=== PATIENT | female | born 1980 | race Hispanic/Latino ===

== ENCOUNTER 2021-04-10 06:33 | Emergency (ER) | payer OTHER ==
--- OUTSIDE RECORDS SUMMARY | 2021-04-10 06:39 | XMS REPORT | Continuity of Care Document ---
:1980 Author Organization [facility] t Address [address] [facility] [[email or web address] [address] [place] [id number] Care Team Providers Name Role Phone Donna STEINER Primary Care Physician Unavailable RAIZA Attending Clinician Unavailable RODNEY ERAZO Attending Clinician Unavailable Forest Mars DO Attending Clinician Nena RIOS Attending Clinician Unavailable Nena RIOS Attending Clinician Unavailable 1, Sleep Lab Bed Attending Clinician Unavailable Nena Rios MD Attending Clinician KERWIN Attending Clinician Unavailable Only, Test Attending Clinician Unavailable Natasha LORD Attending Clinician Doctor Unassigned, Name Attending Clinician Unavailable Kerwin LORD Attending Clinician [facility] Attending Clinician Unavailable Raleigh Quezada DO Attending Clinician Raiza MATAMOROS Attending Clinician Erik Stevens MD Attending Clinician Donna Steiner Attending Clinician Wilmer FONTANEZ Attending Clinician Unavailable Lab, Fam Pob I Attending Clinician Unavailable Caron CHERY Attending Clinician Trinity Rosario Attending Clinician Gi OFNTANEZ Attending Clinician Unavailable Singer MARTE Attending Clinician Juan Daniel LORD Attending Clinician Payers Payer Name Policy Type Policy Number Effective Date Expiration Date S ource [facility] [id number] 2018 CHOICE MEDICAID 00:00:00 [facility] [id number] [facility] [id number] 2019 HEALTH CHOICE 00:00:00 Problems Condition Condition Condition Status Onset Resolution Last Treating Co mments Source Name Details Category Date Date Treatment Clinician Date Bipolar 1 Bipolar 1 Disease Active [facility] disorder disorder 3-17 Colleg e (HCCode) (HCCode) 00:00: of 00 Medicin e Depression Depression Disease Active [facility] 3-17 [facility] 00:00: of 00 Medicin e High blood High blood Disease Active [facility] pressure pressure 3-17 Colleg e 00:00: of 00 Medicin e Sleep-diso Sleep-diso Disease Active Last [facility] rdered rdered 06-19 [facility] breathing breathing 00:00: t & Plan: o f 00 Formattin Medicin g of this e note might be different from the original. Patient with history, obesity, and anatomy of the upper airway suggestiv e of sleep disordere d breathing .In addition, patient has associate d difficult y initiatin g sleep, snoring, nocturnal awakening , anxiety, and hypertens ion. Discussed with patient the pathophys iology of sleep apnea, diagnosis , and treatment options.W ill order a sleep study and further managment as indicated . Disorder Disorder Disease Active Last [facility] initiating initiating 00:00: t & Plan: of and and 00 Formattin Medicin maintainin maintainin g of this e g sleep g sleep note might be different from the original. Patient reported occasiona lly having difficult y falling to sleep at night. I advised her on the importanc e of testing for and treating YUMIKO if present. We also discussed good sleep hygiene practices such as reserving the bed/bedro om for sleep, keeping scheduled bedtime/w aketime, and avoiding screen exposure in bed and at night. I advised her on appropria te low dose melatonin (1-3mg) use 2 hours before bedtime. 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 obesity obesity 08-06 [place] (HCCode) (HCCode) 00:00: of 00 Medicin e Allergies, Adverse Reactions, Alerts Allergy Allergy Status Severity Reaction(s) Onset Inactive Treating Comm ents Source Name Type Date Date Clinician Lisinopr Propensi [facility] ity of adverse 00:00: [place] reaction 00 [facility] s Branch LISINOPR DRUG Active COUGH Univers IL INGREDI 11-26 ity of 00:00: [place] 00 [facility] Lisinopr Propensi Active Other [facility] ty to 11-26 reaction( College adverse 00:00: s): of reaction 00 [facility] in s to r e drug reaction( s): Cough Social History Social Habit Start Date Stop Date Quantity Comments Source Exposure to Unable to assess Univers ity of SARS-CoV-2 (event) [facility] Cigarettes smoked 2020-09-12 2020-09-12 [facility] of current (pack per 00:00:00 00:00:00 Medicin e day) - Reported Tobacco use and 2020-09-12 2020-09-[address] [facility] Co llege of exposure 00:00:00 00:00:00 Medicine Alcohol intake 2020-09-12 2020-09-12 Current drinker [facility] of 00:00:00 00:00:00 of alcohol Medicine (finding) Alcohol Comment 2019-04-04 2019-04-04 rare Universit y of 00:00:00 00:00:00 [facility] History of tobacco 2019-01-06 Cigarette Smoker University of use 00:00:00 [facility] Sex Ass[birth year] At [birth year] Universit y of 00:00:00 00:00:00 [facility] Smoking Status Start Date Stop Date Source Former smoker 2020-09-12 00:00:00 2020-09-12 00:00:00 [facility] Medications Ordered Filled Start Stop Current Ordering Indication Dosage Frequency Signature Comments Components Source Medication Medication Date Date Medication? Clinician (SIG) Name Name Cetirizine Yes 1{capsu Take 1 [facility] HCl 10 MG 4-28 le} capsule by [facility] CAPS 16:18: mouth of 16 daily. Medicin e quetiapine Yes 1{tbl} Take 1 [facility] (SEROQUEL) 4-28 Tablet by [facility] 100 MG 16:18: mouth of tablet 16 daily. Medicin e Meloxicam Yes 1{capsu Take 1 [facility] boone 10 MG CAPS 4-28 le} capsule by [facility] 16:18: mouth of 16 daily. Medicin e meloxicam Yes [facility] (MOBIC) 15 2-27 College MG tablet 00:00: of 00 Medicin e Cetirizine Yes 1{capsu Take 1 [facility] HCl 10 MG 2-02 le} capsule by [facility] CAPS 14:23: mouth of 39 daily. Medicin e quetiapine Yes 1{tbl} Take 1 [facility] (SEROQUEL) 2-02 Tablet by [facility] 100 MG 14:23: mouth of tablet 39 daily. Medicin e Meloxicam Yes 1{capsu Take 1 [facility] [facility] 10 MG CAPS 2-02 le} capsule by [facility] 14:23: mouth of 39 daily. Medicin e azithromyci 2019-05 2020- No [id number] 1000mg Take 2 Univers n 500 mg 2- 12-03 tablets by ity of tablet 00:00: 05:59 mouth [place] 00 :00 daily for Medical 1 day. Branch azithromyci 2019-05 2020- No [id number] 1000mg Take 2 Univers n 500 mg 2- 12-03 tablets by ity of tablet 00:00: 05:59 mouth [place] 00 :00 daily for Medical 1 day. Branch azithromyci 2019- 2020- No [id number] 1000mg Take 2 Univers n 500 mg 06-18 tablets by ity of tablet 00:00: 05:59 mouth [place] 00 :00 daily for Medical 1 day. Branch carvedilol 2019- Yes Take by Uni vers (COREG) 1-18 mouth 2 ity of 12.5 mg 14:16: (two) [place] tablet 26 times Medical daily with Branch meals. carvedilol 2019- Yes Take by Uni vers (COREG) 1-18 mouth 2 ity of 12.5 mg 14:16: (two) [place] tablet 26 times Medical daily with Branch meals. carvedilol 2019-05 Yes Take by Uni vers (COREG) 1-18 mouth 2 ity of 12.5 mg 14:16: (two) [place] tablet 26 times Medical daily with Branch meals. carvedilol 2019-05 Yes Take by Uni vers (COREG) 1-18 mouth 2 ity of 12.5 mg 14:16: (two) [place] tablet 26 times Medical daily with Branch meals. carvedilol 2019-05 Yes Take by Uni vers (COREG) 1-18 mouth 2 ity of 12.5 mg 14:16: (two) [place] tablet 26 times Medical daily with Branch meals. carvedilol 2019- Yes Take by Uni vers (COREG) 1-18 mouth 2 ity of 12.5 mg 14:16: (two) [place] tablet 26 times Medical daily with Branch meals. carvedilol 2019- Yes Take by Uni vers (COREG) 1-18 mouth 2 ity of 12.5 mg 14:16: (two) [place] tablet 26 times Medical daily with Branch meals. carvedilol 2019- Yes Take by Uni vers (COREG) 1-18 mouth 2 ity of 12.5 mg 14:16: (two) [place] tablet 26 times Medical daily with Branch meals. carvedilol 2019- Yes Take by Uni vers (COREG) 1-18 mouth 2 ity of 12.5 mg 14:16: (two) [place] tablet 26 times Medical daily with Branch meals. carvedilol 2019- Yes Take by Uni vers (COREG) 1-18 mouth 2 ity of 12.5 mg 14:16: (two) [place] tablet 26 times Medical daily with Branch meals. carvedilol 2019-05 Yes Take by Uni vers (COREG) 1-18 mouth 2 ity of 12.5 mg 14:16: (two) [place] tablet 26 times Medical daily with Branch meals. carvedilol 2019-05 Yes Take by Uni vers (COREG) 1-18 mouth 2 ity of 12.5 mg 14:16: (two) [place] tablet 26 times Medical daily with Branch meals. carvedilol 2019-05 Yes Take by Uni vers (COREG) 1-18 mouth 2 ity of 12.5 mg 14:16: (two) [place] tablet 26 times Medical daily with Branch meals. carvedilol 2019-05 Yes Take by Uni vers (COREG) 1-18 mouth 2 ity of 12.5 mg 14:16: (two) [place] tablet 26 times Medical daily with Branch meals. losartan 2019-05 Yes 1{tbl} Take 1 [facility] (COZAAR) 50 0-03 Tablet by [facility] MG tablet 00:00: mouth of 00 daily. Medicin e losartan 2019-05 Yes 1{tbl} Take 1 [facility] (COZAAR) 50 0-03 Tablet by Col lege MG tablet 00:00: mouth of 00 daily. Medicin e losartan 50 2019-05 Yes Univer s mg tablet 0-03 ity of 00:00: [place] [facility] losartan 50 2019-05 Yes Univer s mg tablet 0-03 ity of 00:00: Medical Branch losartan 50 2019-05 Yes Univer s mg tablet 0-03 ity of 00:00: Medical Branch losartan 50 2019-05 Yes Univer s mg tablet 0-03 ity of 00:00: Medical Branch losartan 50 2019-05 Yes Univer s mg tablet 0-03 ity of 00:00: Medical Branch losartan 50 2019-05 Yes Univer s mg tablet 0-03 ity of 00:00: Medical Branch losartan 50 2019-05 Yes Univer s mg tablet 0-03 ity of 00:00: Medical Branch losartan 50 2019-05 Yes Univer s mg tablet 0-03 ity of 00:00: Medical Branch losartan 50 2019-05 Yes Univer s mg tablet 0-03 ity of 00:00: Medical Branch losartan 50 2019-05 Yes Univer s mg tablet 0-03 ity of 00:00: [place] [facility] losartan 50 2019- Yes Univer s mg tablet 0-03 ity of 00:00: [place] [facility] losartan 50 2019- Yes Univer s mg tablet 0-03 ity of 00:00: Medical Branch losartan 50 2019- Yes Univer s mg tablet 0-03 ity of 00:00: [place] [facility] losartan 50 2019- Yes Univer s mg tablet 0-03 ity of 00:00: [place] [facility] cyclobenzap 2019-05 Yes 1{tbl} Take 1 [facility] rine 0-02 Tablet by [place] (FLEXERI) 00:00: mouth of 10 MG 00 daily. Medicin tablet e lamotrigine 2019-05 Yes 1{tbl} Take 1 [facility] (LAMICTAL) 0-02 Tablet by [facility] 25 MG 00:00: mouth of tablet 00 daily. Medicin e cyclobenzap 2019-05 Yes 1{tbl} Take 1 [facility] rine 0-02 Tablet by [place] (FLEXERI) 00:00: mouth of 10 MG 00 daily. Medicin tablet e lamotrigine 2019-05 Yes 1{tbl} Take 1 [facility] (LAMICTAL) 0-02 Tablet by [facility] 25 MG 00:00: mouth of tablet 00 daily. Medicin e cyclobenzap 2019-05 Yes Univer s rine 10 mg 0-02 ity of tablet 00:00: [place] [facility] lamoTRIgine 2019-05 Yes TK 1 T PO U nivers 25 mg 0-02 D ity of tablet 00:00: [place] [facility] cyclobenzap 2019-05 Yes Univer s rine 10 mg 0-02 ity of tablet 00:00: [place] [facility] lamoTRIgine 2019-05 Yes TK 1 T PO U nivers 25 mg 0-02 D ity of tablet 00:00: [place] [facility] cyclobenzap 2019-05 Yes Univer s rine 10 mg 0-02 ity of tablet 00:00: [place] [facility] lamoTRIgine 2019-05 Yes TK 1 T PO U nivers 25 mg 0-02 D ity of tablet 00:00: [place] [facility] cyclobenzap 2019-05 Yes Univer s rine 10 mg 0-02 ity of tablet 00:00: [place] [facility] lamoTRIgine 2020- Yes TK 1 T PO U nivers 25 mg 0-02 D ity of tablet 00:00: [place] [facility] cyclobenzap 2019- Yes Univer s rine 10 mg 0-02 ity of tablet 00:00: [place] [facility] lamoTRIgine 2020 Yes TK 1 T PO U nivers 25 mg 0-02 D ity of tablet 00:00: [place] [facility] cyclobenzap 2019-05 Yes Univer s rine 10 mg 0-02 ity of tablet 00:00: [address] lamoTRIgine 2019-05 Yes TK 1 T PO U nivers 25 mg 0-02 D ity of tablet 00:00: [address] cyclobenzap 2019-05 Yes Univer s rine 10 mg 0-02 ity of tablet 00:00: [address] lamoTRIgine 2019-05 Yes TK 1 T PO U nivers 25 mg 0-02 D ity of tablet 00:00: [address] cyclobenzap 2019-05 Yes Univer s rine 10 mg 0-02 ity of tablet 00:00: [address] lamoTRIgine 2019-05 Yes TK 1 T PO U nivers 25 mg 0-02 D ity of tablet 00:00: [address] cyclobenzap 2019-05 Yes Univer s rine 10 mg 0-02 ity of tablet 00:00: [address] lamoTRIgine 2019-05 Yes TK 1 T PO U nivers 25 mg 0-02 D ity of tablet 00:00: [address] cyclobenzap 2019-05 Yes Univer s rine 10 mg 0-02 ity of tablet 00:00: [address] lamoTRIgine 2020 Yes TK 1 T PO U nivers 25 mg 0-02 D ity of tablet 00:00: [address] cyclobenzap 2019-05 Yes Univer s rine 10 mg 0-02 ity of tablet 00:00: [address] lamoTRIgine 2020 Yes TK 1 T PO U nivers 25 mg 0-02 D ity of tablet 00:00: [address] cyclobenzap 2019-05 Yes Univer s rine 10 mg 0-02 ity of tablet 00:00: [place] 00 Medical Branch lamoTRIgine 2019- Yes TK 1 T PO U nivers 25 mg 0-02 D ity of tablet 00:00: Medical Branch cyclobenzap 2019- Yes Univer s rine 10 mg 0-02 ity of tablet 00:00: Medical Branch lamoTRIgine 2019- Yes TK 1 T PO U nivers 25 mg 0-02 D ity of tablet 00:00: Medical Branch cyclobenzap 2019- Yes Univer s rine 10 mg 0-02 ity of tablet 00:00: Medical Branch lamoTRIgine 2019- Yes TK 1 T PO U nivers 25 mg 0-02 D ity of tablet 00:00: Medical Branch ibuprofen 2020-0 Yes 600mg Take 600 [facility] (MOTRIN) 7-08 mg by College 600 MG 00:00: mouth as of tablet 00 needed. Medicin e ibuprofen 2019-0 Yes 600mg Take 600 [facility] (MOTRIN) 7-08 mg by College 600 MG 00:00: mouth as of tablet 00 needed. Medicin e ibuprofen 2019-0 Yes [id number] 600mg Take 1 [facility] 600 mg 7-08 tablet by ity of tablet 00:00: mouth [place] 00 every 6 Medical (six) Branch hours as needed for Pain (scale 4-6). benzonatate 2020-0 Yes [id number] 200mg Take 1 Univers 200 mg 7-08 capsule by ity of capsule 00:00: mouth 3 00 (three) Medical times Branch daily as needed for Cough for up to 20 doses. ondansetron 2020-0 Yes [id number] 4mg Take 1 [facility] (ZOFRAN 7-08 tablet by ity of ODT) 4 mg 00:00: mouth [place] disintegrat 00 every 8 Medic al ing tablet (eight) Branch hours as needed for Nausea and Vomiting (N/V). ibuprofen 2020-0 Yes [id number] 600mg Take 1 [facility] 600 mg 7-08 tablet by ity of tablet 00:00: mouth [place] 00 every 6 Medical (six) Branch hours as needed for Pain (scale 4-6). benzonatate 2020-0 Yes [id number] 200mg Take 1 [facility] 200 mg 7-08 capsule by ity of capsule 00:00: mouth 3 00 (three) Medical times Branch daily as needed for Cough for up to 20 doses. ondansetron 2020-0 Yes [id number] 4mg Take 1 Univers (ZOFRAN 7-08 tablet by ity of ODT) 4 mg 00:00: mouth [place] disintegrat 00 every 8 Medic al ing tablet (eight) Branch hours as needed for Nausea and Vomiting (N/V). ibuprofen 2020-0 Yes [id number] 600mg Take 1 [facility] 600 mg 7-08 tablet by ity of tablet 00:00: mouth [place] 00 every 6 Medical (six) Branch hours as needed for Pain (scale 4-6). benzonatate 2020-0 Yes [id number] 200mg Take 1 Univers 200 mg 7-08 capsule by ity of capsule 00:00: mouth 3 [place] 00 (three) Medical times Branch daily as needed for Cough for up to 20 doses. ondansetron 2020-0 Yes [id number] 4mg Take 1 Univers (ZOFRAN 7-08 tablet by ity of ODT) 4 mg 00:00: mouth [place] disintegrat 00 every 8 Medic al ing tablet (eight) Branch hours as needed for Nausea and Vomiting (N/V). ibuprofen 2020-0 Yes [id number] 600mg Take 1 [facility] 600 mg 7-08 tablet by ity of tablet 00:00: mouth [place] 00 every 6 Medical (six) Branch hours as needed for Pain (scale 4-6). benzonatate 2020-0 Yes [id number] 200mg Take 1 [facility] 200 mg 7-08 capsule by ity of capsule 00:00: mouth 3 [place] 00 (three) Medical times Branch daily as needed for Cough for up to 20 doses. ondansetron 2020-0 Yes [id number] 4mg Take 1 Univers (ZOFRAN 7-08 tablet by ity of ODT) 4 mg 00:00: mouth [place] disintegrat 00 every 8 Medic al ing tablet (eight) Branch hours as needed for Nausea and Vomiting (N/V). ibuprofen 2020-0 Yes [id number] 600mg Take 1 Univers 600 mg 7-08 tablet by ity of tablet 00:00: mouth [place] 00 every 6 Medical (six) Branch hours as needed for Pain (scale 4-6). benzonatate 2020-0 Yes [id number] 200mg Take 1 Univers 200 mg 7-08 capsule by ity of capsule 00:00: mouth 3 [place] 00 (three) Medical times Branch daily as needed for Cough for up to 20 doses. ondansetron 2020-0 Yes [id number] 4mg Take 1 Univers (ZOFRAN 7-08 tablet by ity of ODT) 4 mg 00:00: mouth [place] disintegrat 00 every 8 Medic al ing tablet (eight) Branch hours as needed for Nausea and Vomiting (N/V). ibuprofen 2020-0 Yes [id number] 600mg Take 1 Univers 600 mg 7-08 tablet by ity of tablet 00:00: mouth [place] 00 every 6 Medical (six) Branch hours as needed for Pain (scale 4-6). benzonatate 2020-0 Yes [id number] 200mg Take 1 Univers 200 mg 7-08 capsule by ity of capsule 00:00: mouth 3 [place] 00 (three) Medical times Branch daily as needed for Cough for up to 20 doses. ondansetron 2020-0 Yes [id number] 4mg Take 1 Univers (ZOFRAN 7-08 tablet by ity of ODT) 4 mg 00:00: mouth [place] disintegrat 00 every 8 Medic al ing tablet (eight) Branch hours as needed for Nausea and Vomiting (N/V). ibuprofen 2020-0 Yes [id number] 600mg Take 1 Univers 600 mg 7-08 tablet by ity of tablet 00:00: mouth [place] 00 every 6 Medical (six) Branch hours as needed for Pain (scale 4-6). ibuprofen 2020-0 Yes [id number] 600mg Take 1 [facility] 600 mg 7-08 tablet by ity of tablet 00:00: mouth [place] 00 every 6 Medical (six) Branch hours as needed for Pain (scale 4-6). ibuprofen 2020-0 Yes [id number] 600mg Take 1 Univers 600 mg 7-08 tablet by ity of tablet 00:00: mouth [place] 00 every 6 Medical (six) Branch hours as needed for Pain (scale 4-6). ibuprofen 2020-0 Yes [id number] 600mg Take 1 [facility] 600 mg 7-08 tablet by ity of tablet 00:00: mouth [place] 00 every 6 Medical (six) Branch hours as needed for Pain (scale 4-6). ibuprofen 2020-0 Yes [id number] 600mg Take 1 Univers 600 mg 7-08 tablet by ity of tablet 00:00: mouth [place] 00 every 6 Medical (six) Branch hours as needed for Pain (scale 4-6). ibuprofen 2020-0 Yes [id number] 600mg Take 1 Univers 600 mg 7-08 tablet by ity of tablet 00:00: mouth [place] 00 every 6 Medical (six) Branch hours as needed for Pain (scale 4-6). ibuprofen 2020-0 Yes [id number] 600mg Take 1 Univers 600 mg 7-08 tablet by ity of tablet 00:00: mouth [place] 00 every 6 Medical (six) Branch hours as needed for Pain (scale 4-6). ibuprofen 2020-0 Yes [id number] 600mg Take 1 Univers 600 mg 7-08 tablet by ity of tablet 00:00: mouth [place] 00 every 6 Medical (six) Branch hours as needed for Pain (scale 4-6). ibuprofen 2020-0 Yes [id number] 600mg Take 1 Univers 600 mg 7-08 tablet by ity of tablet 00:00: mouth [place] 00 every 6 Medical (six) Branch hours as needed for Pain (scale 4-6). ibuprofen 2020-0 Yes [id number] 600mg Take 1 Univers 600 mg 7-08 tablet by ity of tablet 00:00: mouth [place] 00 every 6 Medical (six) Branch hours as needed for Pain (scale 4-6). ibuprofen 2020-0 Yes [id number] 600mg Take 1 Univers 600 mg 7-08 tablet by ity of tablet 00:00: mouth [place] 00 every 6 Medical (six) Branch hours as needed for Pain (scale 4-6). ibuprofen 2020-0 Yes [id number] 600mg Take 1 [facility] 600 mg 7-08 tablet by ity of tablet 00:00: mouth [place] 00 every 6 Medical (six) Branch hours as needed for Pain (scale 4-6). ibuprofen 2020-0 Yes [id number] 600mg Take 1 [facility] 600 mg 7-08 tablet by ity of tablet 00:00: mouth [place] 00 every 6 Medical (six) Branch hours as needed for Pain (scale 4-6). ibuprofen 2020-0 Yes [id number] 600mg Take 1 Univers 600 mg 7-08 tablet by ity of tablet 00:00: mouth [place] 00 every 6 Medical (six) Branch hours as needed for Pain (scale 4-6). benzonatate 2020-0 2020- No [id number] 200mg Take 1 Univers 200 mg 7-08 11-18 capsule by ity of capsule 00:00: 00:00 mouth 3 [place] 00 :00 (three) Medical times Branch daily as needed for Cough for up to 20 doses. ondansetron 2020-0 2020- No [id number] 4mg Take 1 Univers (ZOFRAN 11-22 tablet by ity of ODT) 4 mg 00:00: 00:00 mouth [place] disintegrat 00 :00 every 8 Medic al ing tablet (eight) Branch hours as needed for Nausea and Vomiting (N/V). benzonatate 2020-0 2020- No [id number] 200mg Take 1 Univers 200 mg 11-22 capsule by ity of capsule 00:00: 00:00 mouth 3 [place] 00 :00 (three) Medical times Branch daily as needed for Cough for up to 20 doses. ondansetron 2020-0 2020- No [id number] 4mg Take 1 Univers (ZOFRAN 11-22 tablet by ity of ODT) 4 mg 00:00: 00:00 mouth [place] disintegrat 00 :00 every 8 Medic al ing tablet (eight) Branch hours as needed for Nausea and Vomiting (N/V). cloNIDine 2020-0 2020- No .1mg 0.1 mg, Univ ers (CATAPRES) 2- 02-04 Oral, ity of tablet 0.1 07:00: 06:01 ONCE, 1 [facility] as mg 00 :00 dose, [facility] 06/21/19 at Branch 0100, STAT carvedilol 2020-0 Yes Take by Uni vers (COREG) 2-04 mouth 2 ity of 12.5 mg 04:08: (two) [place] tablet 17 times Medical daily with Branch meals. carvedilol 2020-0 Yes Take by Uni vers (COREG) 2-04 mouth 2 ity of 12.5 mg 04:08: (two) [place] tablet 17 times Medical daily with Branch meals. carvedilol 2020-0 Yes Take by Uni vers (COREG) 2-04 mouth 2 ity of 12.5 mg 04:08: (two) [place] tablet 17 times Medical daily with Branch meals. carvedilol 2020-0 Yes Take by Uni vers (COREG) 2-04 mouth 2 ity of 12.5 mg 04:08: (two) [place] tablet 17 times Medical daily with Branch meals. carvedilol 2020-0 Yes Take by Uni vers (COREG) 2-04 mouth 2 ity of 12.5 mg 04:08: (two) [place] tablet 17 times Medical daily with Branch meals. carvedilol 2019-0 Yes Take by Uni vers (COREG) 2-04 mouth 2 ity of 12.5 mg 04:08: (two) [place] tablet 17 times Medical daily with Branch meals. carvedilol 2020-0 Yes Take by Uni vers (COREG) 2-04 mouth 2 ity of 12.5 mg 04:08: (two) [place] tablet 17 times Medical daily with Branch meals. carvedilol 2019-0 Yes Take by Uni vers (COREG) 2-04 mouth 2 ity of 12.5 mg 04:08: (two) [place] tablet 17 times Medical daily with Branch meals. cephALEXin 2020- No [id number] 500mg Take 1 Univers (KEFLEX) 2-04 02-12 capsule by ity of 500 mg 00:00: 05:59 mouth 3 [place] capsule 00 :00 (three) Medical times Branch daily for 7 days. carvedilol 2018-05 Yes Take by Uni vers (COREG) 1-18 mouth 2 ity of 12.5 mg 14:58: (two) [place] tablet 56 times Medical daily with Branch meals. ibuprofen 2018-05 Yes [id number] 600mg Take 1 U nivers 600 mg 0-19 tablet by ity of tablet 00:00: mouth [place] 00 every 6 Medical (six) Branch hours as needed for Pain (scale 4-6). ibuprofen 2018-05 2020- No [id number] 600mg Take 1 Univers 600 mg 0-19 02-03 tablet by ity of tablet 00:00: 00:00 mouth [place] 00 :00 every 6 Medical (six) Branch hours as needed for Pain (scale 4-6). amoxicillin 2018- Yes [id number] 500mg Take 1 [facility] 500 mg 8-15 capsule by ity of capsule 00:00: mouth 3 [place] 00 (three) Medical times Branch daily. acetaminoph 2018- Yes [id number] 10mL Take 10 mL Univers en-codeine 8-15 by mouth ity o f 120-12 mg/5 00:00: every 6 [facility] as mL 00 (six) Medical suspension hours as Branc h needed for Pain. methocarbam 2018- Yes [id number] 1500mg Take 2 Univers ol 750 mg 4-09 tablets by ity of tablet 00:00: mouth 4 [place] 00 (four) Medical times Branch daily. ibuprofen 2019- Yes [id number] 800mg Take 1 Univers 800 mg 4-09 tablet by ity of tablet 00:00: mouth 3 [place] 00 (three) Medical times Branch daily with meals. cephALEXin 2019- Yes [id number] 500mg Take 1 Univers (KEFLEX) 4-09 capsule by ity o f 500 mg 00:00: mouth 3 [place] capsule 00 (three) Medical times Branch daily. methocarbam 2019- Yes [id number] 1500mg Take 2 Univers ol 750 mg 4-09 tablets by ity of tablet 00:00: mouth 4 [place] 00 (four) Medical times Branch daily. ibuprofen 2018- Yes [id number] 800mg Take 1 Univers 800 mg 4-09 tablet by ity of tablet 00:00: mouth 3 [place] 00 (three) Medical times Branch daily with meals. cephALEXin 2018- Yes [id number] 500mg Take 1 Univers (KEFLEX) 4-09 capsule by ity o f 500 mg 00:00: mouth 3 [place] capsule 00 (three) Medical times Branch daily. carvedilol Yes 1{tbl} Take 1 [place] boone (COREG) 1-23 Tablet by [place] 6.25 MG 00:00: mouth of tablet 00 daily. Medicin e carvedilol Yes 1{tbl} Take 1 [place] boone (COREG) 1-23 Tablet by [place] 6.25 MG 00:00: mouth of tablet 00 daily. Medicin e carvedilol Yes Take by Uni vers (COREG) 7-12 mouth 2 ity of 12.5 mg 17:22: (two) [place] tablet 49 times Medical daily with Branch meals. carvedilol Yes Take by Uni vers (COREG) 7-12 mouth 2 ity of 12.5 mg 17:22: (two) [place] tablet 49 times Medical daily with Branch meals. Immunizations Ordered Filled Immunization Date Status Comments [facility] Immunization Name Name Td 2011-05-18 Completed University of 00:00:00 [facility] Td 2011-05-18 Completed University of 00:00:00 [facility] Td 2011-05-18 Completed University of 00:00:00 [facility] Td 2011-05-18 Completed University of 00:00:00 [facility] Td 2011-05-18 Completed University of 00:00:00 [place] [facility] Td 2011-05-18 Completed University of 00:00:00 [place] [facility] Td 2011-05-18 Completed University of 00:00:00 [place] [facility] Td 2011-05-18 Completed University of 00:00:00 [place] [facility] Td 2011-05-18 Completed University of 00:00:00 [place] [facility] Td 2011-05-18 Completed University of 00:00:00 [place] [facility] Td 2011-05-18 Completed University of 00:00:00 [place] [facility] Td 2011-05-18 Completed University of 00:00:00 [place] [facility] Td 2011-05-18 Completed University of 00:00:00 [place] [facility] Td 2011-05-18 Completed University of 00:00:00 [place] [facility] Td 2011-05-18 Completed University of 00:00:00 [place] [facility] Td 2011-05-18 Completed University of 00:00:00 [place] [facility] Td 2011-05-18 Completed University of 00:00:00 [place] [facility] Td 2011-05-18 Completed University of 00:00:00 [place] [facility] Td 2011-05-18 Completed University of 00:00:00 [place] [facility] Td 2011-05-18 Completed University of 00:00:00 [place] [facility] Td 2011-05-18 Completed University of 00:00:00 [place] [facility] Td 2011-05-18 Completed University of 00:00:00 [place] [facility] Td 2011-05-18 Completed University of 00:00:00 [place] [facility] Td 2011-05-18 Completed University of 00:00:00 [place] [facility] Td 2011-05-18 Completed University of 00:00:00 [place] [facility] Td 2011-05-[address] [facility] 00:00:00 Medicine Vital Signs Vital Name Observation Time Observation Value Comments Source Systolic blood 2020-12-12 13:12:00 154 mm[Hg] Univer sity of pressure [facility] Branch Diastolic blood 2020-12-12 13:12:00 103 mm[Hg] Unive rsity of pressure [facility] Heart rate 2020-12-12 13:12:00 99 /min Universi [facility] Body temperature 2020-12-12 13:12:00 37.83 Elizabeth Univ ersity of [facility] Respiratory rate 2020-12-12 13:12:00 18 /min Univ ersity of [place] [facility] Body weight 2020-12-12 13:12:00 159.893 kg Universi ty of [place] [facility] BMI 2020-12-12 13:12:00 60.51 kg/m2 Universi ty of [place] [facility] Oxygen saturation in 2020-12-12 13:12:00 99 /min University of Arterial blood by [facility] [place] [facility] Pulse oximetry Branch Systolic blood 2020-12-12 13:12:00 154 mm[Hg] Univer sity of pressure [place] [facility] Diastolic blood 2020-12-12 13:12:00 103 mm[Hg] Unive rsity of pressure [place] [facility] Heart rate 2020-12-12 13:12:00 99 /min Universi ty of [place] [facility] Body temperature 2020-12-12 13:12:00 37.83 Elizabeth Univ ersity of [place] [facility] Respiratory rate 2020-12-12 13:12:00 18 /min Univ ersity of [place] [facility] Body weight 2020-12-12 13:12:00 159.893 kg Universi ty of [place] [facility] BMI 2020-12-12 13:12:00 60.51 kg/m2 Universi ty of [place] [facility] Oxygen saturation in 2020-12-12 13:12:00 99 /min University of Arterial blood by [facility] [place] [facility] Pulse oximetry Branch Systolic blood 2020-09-12 16:17:00 140 mm[Hg] [facility] pressure Medicine Diastolic blood 2020-09-12 16:17:00 76 mm[Hg] [facility] Medicine Heart rate 2020-09-12 16:17:00 81 /min [facility] Body temperature 2020-09-12 16:17:00 36.83 Elizabeth [facility] Body height 2020-09-12 16:17:00 162.6 cm [facility] Body weight 2020-09-12 16:17:00 166.924 kg [facility] BMI 2020-09-12 16:17:00 63.17 kg/m2 [facility] Systolic blood 2020-06-20 16:30:00 187 mm[Hg] [facility] pressure Medicine Diastolic blood 2020-06-20 16:30:00 115 mm[Hg] [facility] Heart rate 2020-06-20 16:30:00 85 /min [facility] 2020-06-20 16:30:00 36.83 Elizabeth [facility] Body height 2020-06-20 16:30:00 162.6 cm [facility] Body weight 2020-06-20 16:30:00 170.099 kg [facility] BMI 2020-06-20 16:30:00 64.37 kg/m2 [facility] Systolic blood 2020-04-04 14:13:00 171 mm[Hg] Univer sity of pressure [facility] Branch Diastolic blood 2020-04-04 14:13:00 100 mm[Hg] Unive rsity of pressure [facility] Branch Heart rate 2020-04-04 14:13:00 73 /min Universi ty of [facility] Branch Body temperature 2020-04-04 14:10:00 36.72 Elizabeth Univ ersity of [facility] Branch Respiratory rate 2020-04-04 14:10:00 18 /min Univ ersity of [facility] Branch Body height 2020-04-04 14:10:00 162.6 cm Universi ty of [place] [facility] Body weight 2020-04-04 14:10:00 169.01 kg Universi ty of [place] [facility] BMI 2020-04-04 14:10:00 63.96 kg/m2 Universi ty of [place] [facility] Systolic blood 2019-11-23 16:16:00 169 mm[Hg] Univer sity of pressure [place] [facility] Diastolic blood 2019-11-23 16:16:00 100 mm[Hg] Unive rsity of pressure [place] [facility] Heart rate 2019-11-23 16:16:00 81 /min Universi ty of [place] [facility] Body temperature 2019-11-23 16:16:00 37.17 Elizabeth Univ ersity of [place] [facility] Respiratory rate 2019-11-23 16:16:00 20 /min Univ ersity of [place] [facility] Body weight 2019-11-23 16:16:00 170.099 kg Universi ty of [place] [facility] BMI 2019-11-23 16:16:00 66.43 kg/m2 Universi ty of [facility] Branch Oxygen saturation in 2019-11-23 16:16:00 98 /min University of Arterial blood by [facility] [place] [facility] Pulse oximetry Branch Systolic blood 2019-06-21 07:00:00 153 mm[Hg] Univer sity of pressure [facility] Diastolic blood 2019-06-21 07:00:00 84 mm[Hg] Unive rsity of pressure [facility] Heart rate 2019-06-21 07:00:00 76 /min Universi ty of [facility] Respiratory rate 2019-06-21 07:00:00 20 /min [facility] Oxygen saturation in 2019-06-21 07:00:00 97 /min University of Arterial blood by [facility] [place] [facility] Pulse oximetry Branch Body temperature 2019-06-21 04:07:00 36.67 Elizabeth Univ ersity of [facility] Body weight 2019-06-21 04:07:00 167.831 kg Universi ty of [place] [facility] [place] BMI 2019-06-21 04:07:00 65.54 kg/m2 Universi ty of [facility] Systolic blood 2018-12-30 14:24:00 154 mm[Hg] Univer sity of [facility] Diastolic blood 2018-12-30 14:24:00 104 mm[Hg] Unive rsity of [facility] Heart rate 2018-12-30 14:24:00 94 /min Universi ty of [facility] Body temperature 2018-12-30 14:24:00 37 Elizabeth Univ [facility] Respiratory rate 2018-12-30 14:24:00 20 /min [facility] Body weight 2018-12-30 14:24:00 159.666 kg Universi ty of [place] [facility] [place] BMI 2018-12-30 14:24:00 62.35 kg/m2 Universi ty [facility] Oxygen saturation in 2018-12-30 14:24:00 99 /min University of Arterial blood by [facility] [place] [facility] Pulse oximetry Branch Procedures Procedure Date / Time Performing Clinician Source Performed RAPID STREP SCREEN FOR 2020-12-12 13:15:00 [facility] Branch ASSIGNMENT OF BENEFITS 2020-11-14 14:37:44 Doctor Unassigned, No [facility] Name [facility] BI SCREENING MAMMOGRAM 2020-06-06 16:23:00 Mariela Eastman [facility] BILATERAL Medical Branch ASSIGNMENT OF BENEFITS 2020-06-06 15:57:38 Doctor Unassigned, No [facility] [place] SCANNED LAB RESULTS 2020-04-04 06:01:00 Doctor Unassigned, No Un iversity of [facility] Medical Branch RAPID STREP SCREEN FOR 2019-11-23 17:08:00 Fidelia Driver [facility] GROUP A Medical Branch CONSENT/REFUSAL FOR 2019-11-23 16:08:07 Doctor Unassigned, No Un iversity of [place] DIAGNOSIS AND TREATMENT [facility] Medical Branch TROPONIN I 2019-06-21 05:26:00 Nettie [facility] o [facility] COMP. METABOLIC PANEL 2019-06-21 05:26:00 Woodard, [facility] ([id number]) [facility] CBC WITH DIFFERENTIAL 2019-06-21 05:26:00 Woodard, [facility] URINALYSIS 2019-06-21 05:26:00 Woodard, [facility] o f [facility] N-TERMINAL PRO-BNP 2019-06-21 05:26:00 Singer [facility] NOTICE OF PRIVACY 2019-06-21 03:30:52 Doctor Unassigned, No Univ [facility] Branch CONSENT/REFUSAL FOR 2019-06-21 03:30:20 Doctor Unassigned, No Un iversity of [place] DIAGNOSIS AND TREATMENT [facility] Medical Branch NOTICE OF PRIVACY 2018-12-30 14:16:24 [facility], [facility] CONSENT/REFUSAL FOR 2018-12-30 14:16:11 Doctor Unassigned, No Un iversity of [place] DIAGNOSIS AND TREATMENT [facility] Plan of Care Planned Activity Planned Date Details Comments Source Future Scheduled COVID-19 Vaccine [facility] of Test Evaluation [code = Medicine COVID-19 Vaccine Evaluation] Future Scheduled BMI FOLLOW UP PLAN [code = [facility] of Test BMI FOLLOW UP PLAN] Medicine Future Scheduled HEPATITIS C SCREENING [facility] [code = HEPATITIS C Medicine SCREENING] Future Scheduled HIV SCREENING [code = HIV [facility] of [facility] SCREENING] Medicine Future Scheduled CERVICAL CANCER SCREENING [facility] 3 YEAR FOLLOW UP [code = Med icine CERVICAL CANCER SCREENING 3 YEAR FOLLOW UP] Future Scheduled FLU VACCINE > 6 MONTHS [employer] Test [code = FLU VACCINE > 6 [facility] cine MONTHS] Future Scheduled TETANUS SHOT (ADULT) [code [facility] Test = TETANUS SHOT (ADULT)] [facility] Future Scheduled MAMMOGRAM ANNUAL [code = [facility] MAMMOGRAM ANNUAL] Medicine Future Scheduled COVID-19 Vaccine (1) [code [facility] Test = COVID-19 Vaccine (1)] [facility] Future Scheduled BMI FOLLOW UP PLAN [code = [facility] BMI FOLLOW UP PLAN] Medicine Future Scheduled Hepatitis C screening Ba [facility] (procedure) [code = Medicine 214083750] Future Scheduled Human immunodeficiency B [facility] virus screening Medicine (procedure) [code = 822389847] Future Scheduled Screening for malignant [facility] neoplasm of cervix Medicine (procedure) [code = 299114066] Future Scheduled FLU VACCINE > 6 MONTHS B [facility] [code = FLU VACCINE > 6 Medi cine MONTHS] Future Scheduled TETANUS SHOT (ADULT) [code [facility] = TETANUS SHOT (ADULT)] [facility] Future Scheduled Screening for malignant [facility] neoplasm of breast Medicine (procedure) [code = 152723233] Encounters Start End Encounter Admission Attending Care Care Encounter Source Date/Time Date/Time Type Type Clinicians Facility Department ID 2021-03-18 Emergency [facility] [id number] Univers 11:19:41 [facility] 2021-03-15 Emergency [facility] [id number] Univers 05:30:29 [facility] 2021-05-22 2021-05-22 Outpatient Wanda EASTMAN [facility] [id number] Univers 15:00:00 15:00:00 MARIELA [id number] [facility] 2021-04-04 2021-04-04 Outpatient Wanda EASTMAN [facility] [id number] Univers 08:00:00 08:00:00 MARIELA [id number] [facility] 2021-04-04 2021-04-04 Outpatient Wanda EASTMAN [facility] [id number] Univers 08:00:00 08:00:00 MARIELA [facility] 2021-02-01 2021-02-01 Outpatient DEL [facility]ZO [facility] [id number] [place] [address] 15:55:51 16:11:15 INDIA Patel 2020-12-12 2020-12-12 Emergency [facility] 1.2.840.114 [id number] [facility] 08:14:00 09:21:00 Seble Garg Mega [id number] ity of [place] 4.2.7.2.686 [facility] [id number] [facility] [address] [place] 2020-12-12 2020-12-12 [facility] 1.2.840.114 [id number] 08:14:00 09:21:00 Seble Garg Mega [id number] [place] [id number] [place] [id number] [facility] 2020-11-16 2020-11-16 Outpatient R [facility] [id number] [facility] 19:30:00 19:30:00 [id number] [facility] 2020-11-16 2020-11-16 Outpatient R ISRRAEL RIOS [facility] [id number] [facility] 19:30:00 19:30:00 ISRRAEL RIOS [facility] 2020-11-16 2020-11-16 Merchandise Pickup/Receiving Associate 1, [facility] Sleep Lab Bed [facility] 1. 2.840.114 [id number] [facility] 14:47:18 17:17:18 Visit Isrrael Rios [id number]. 10 [facility] 4.2.7.2.686 [facility] [id number] [facility] 193 Branch 2020-11-16 2020-11-16 Merchandise Pickup/Receiving Associate 1, [facility] 1.2.840.114 [id number] 14:47:18 17:17:18 Visit Sleep Lab [place] [id number] Bed [place] [id number] [place] [id number] 193 2020-11-14 2020-11-14 Outpatient [facility] [id number] [facility] 13:22:15 15:50:38 SRINIVAS ramirez of Medicin e 2020-11-14 2020-11-14 Outpatient R [facility] [id number] [facility] 10:00:00 10:00:00 [id number] ity of [facility] 2020-11-14 2020-11-14 Outpatient R [facility] [id number] Univers 10:00:00 10:00:00 ity of [facility] 2020-11-14 2020-11-14 Laboratory Only, [facility] Test [place] 1.2.840. 114 [id number] Univers 09:38:29 09:53:29 Only Natasha Neal Mega [id number] ity of [place] 4.2.7.2.686 [place] [id number] [facility] 353 Branch 2020-11-14 2020-11-14 Laboratory Only, [facility] 1.2.840.114 [id number] 09:38:29 09:53:29 Only Test [place] [id number] [place] 4.2.7.2.686 [place] [id number] 353 2020-11-14 2020-11-14 Orders Doctor PARRY 1.2.840.114 [id number] Univers 00:00:00 00:00:00 Only Unassigned, RENATE 350.1.13.10 ity of [place] [facility] 4.2.7.2.686 Alexy as [id number] [facility] 009 Branch 2020-11-14 2020-11-14 Orders Doctor PARRY 1.2.840.114 [id number] 00:00:00 00:00:00 Only Unassigned, RENATE 350.1.13.10 [place] [facility] 4.2.7.2.686 [id number] 009 2020-09-12 2020-09-12 Office DEL Suresh 1.2.840.[id number] [facility] 10:42:53 10:57:53 Visit Srinivas AMBULATOR 350.1.13.21 College Y 0.2.7.2.686 of [id number] [facility] 800 e 2020-08-16 2020-08-16 [facility]patient [facility] [id number] [facility] 14:07:40 16:07:27 CYN ramirez of Medicin e 2020-08-02 2020-08-02 Patient Damien KSRUFINO 1.2.840.114 [id number] Univers 00:00:00 00:00:00 Outreach Cornelio PRIMARY 350.1.13.10 i ty of [place] CARE 4.2.7.2.686 [facility] [phone] Ms dical [address] [place] [address] 2020-08-02 2020-08-02 Patient Damien [facility] 1.2.840.114 [id number] 00:00:00 00:00:00 Outreach Cornelio PRIMARY 350.1.13.10 [place] CARE 4.2.7.2.686 PAVILLION [id number] 2020-08-01 2020-08-01 Outpatient DEL [facility] [id number] [facility] 10:34:13 11:36:59 SRINIVAS ramirez of Medicin e 2020-07-16 2020-07-16 Outpatient R [facility] [id number] Univers 10:00:00 10:00:00 [id number] y [facility] 2020-07-16 2020-07-16 Outpatient R [facility] [id number] Univers 10:00:00 10:00:00 [facility] 2020-06-20 2020-06-20 Office DEL Suresh 1.2.840.[id number] [facility] [facility] 09:29:09 11:45:23 Visit Srinivas BONE 350.1.13.21 College Y 0.2.7.2.686 [id number] [facility] 800 e 2020-06-19 2020-06-19 Outpatient DEL ERAZO [facility] [id number] [facility] [facility] 08:18:46 14:07:55 [place] ramirez of Medicin e 2020-06-06 2020-06-06 [facility] 1.2.840.114 [id number] Univers 09:59:36 23:59:00 Encounter Mariela Ayoub [facility].1.13.10 [facility] [place] 4.2.7.2.686 [facility] [place] [id number] [facility] 800 Branch 2020-06-06 2020-06-06 [facility] 1.2.840.114 [id number] 09:59:36 23:59:00 Encounter Mariela Ayoub 350.1.13.10 [place] 4.2.7.2.686 [place] [id number] 800 2020-06-06 2020-06-06 Outpatient R RAIZA [facility] [id number]-20 Univers 10:20:00 10:20:00 MARIELA [id number] ity [facility] 2020-06-06 2020-06-06 Outpatient Wanda EASTMAN [facility] [id number] Univers 00:00:00 00:00:00 MARIELA [facility] 2020-06-06 2020-06-06 Orders Doctor BRINDA 1.2.840.114 [id number] Univers 00:00:00 00:00:00 Only Unassigned, RENATE 350.1.13.10 ity of [place] [facility] 4.2.7.2.686 Alexy as [id number] [address] 2020-06-06 2020-06-06 Orders Doctor BRINDA 1.2.840.114 [id number] 00:00:00 00:00:00 Only Unassigned, RENATE 350.1.13.10 [facility] 4.2.7.2.686 [id number] [facility] 2020-04-26 2020-04-26 Outpatient Wanda EASTMAN [facility] [id number] Univers 08:00:00 08:00:00 MARIELA [facility] 2020-04-26 2020-04-26 Outpatient Wanda EASTMAN [facility] [id number] Univers 00:00:00 00:00:00 MARIELA [facility] 2020-04-25 2020-04-25 Outpatient Wanda EASTMAN [facility] [id number]-20 Univers 15:00:00 15:00:00 MARIELA [facility] 2020-04-17 2020-04-17 [facility] [id number] Univers 00:00:00 00:00:00 Management Mariela Ayoub 350.1.13.10 ity [facility] 4.2.7.2.686 [place] Profess[place] [id number] Ms dic[address] 2020-04-17 2020-04-17 Telephone Jazmyn Stevens [facility] 1.2.840.114 [id number] Univers 00:00:00 00:00:00 Cam [place] 350.1.13.10 i ty of [place] 4.2.7.2.686 [place] [id number] Ms dic[address] 2020-04-17 2020-04-17 Telephone Jazmyn Stevens [facility] 1.2.840.114 [id number] Univers 00:00:00 00:00:00 Cam [place] 350.1.13.10 i ty of [place] 4.2.7.2.[place] [id number] Ms dic[address] 2020-04-17 2020-04-17 Case Raiza [facility] [id number] 00:00:00 00:00:00 Management Mariela Ayoub 350.1.13.10 [place] 4.2.7.2.686 Professio [id number] [address] 2020-04-17 2020-04-17 Telephone Jazmyn Stevens [facility] 1.2.840.114 [id number] 00:00:00 00:00:00 Cam [place] 350.1.13.10 [place] 4.2.7.2.686 Professio [id number] [address] 2020-04-17 2020-04-17 Telephone Jazmyn Stevens [facility] 1.2.840.114 [id number] 00:00:00 00:00:00 Cam [place] 350.1.13.10 [place] 4.2.7.2.686 Professio [id number] [address] 2020-04-04 2020-04-04 Office Raiza [facility] 1.2.914.416 [id number] Univers 07:56:51 08:40:50 Visit Mariela Ayoub 350.1.13.10 i ty of [place] 4.2.7.2.[place] [id number] [address] 2020-04-04 2020-04-04 Outpatient R RAIZA [facility] [id number] Univers 08:00:00 08:00:00 MARIELA ity of [facility] 2020-04-04 2020-04-04 Orders Doctor PARRY 1.2.840.114 [id number] Univers 00:00:00 00:00:00 Only Unassigned, RENATE 350.1.13.10 ity of [place] [facility] 4.2.7.2.686 Alexy as [id number] [address] 2020-04-04 2020-04-04 Orders Doctor PARRY 1.2.840.114 [id number] 00:00:00 00:00:00 Only Unassigned, RENATE 350.1.13.10 [place] [facility] 4.2.7.2.686 [id number] [facility] 2020-01-01 2020-01-01 Telephone BRINDA Steiner 1.2.840.114 [id number] Univers 00:00:00 00:00:00 Ana Maria DEWITT 350.1.13.10 ity of HOSPITAL 4.2.7.2.686 Alexy as [phone] [address] 2020-01-01 2020-01-01 Letter BRINDA Guillen 1.2.840.114 [id number] Univers 00:00:00 00:00:00 (Out) Marisol RENATE 350.1.13.10 it y of HOSPITAL 4.2.7.2.686 Alexy as [id number] [address] 2019-12-31 2019-12-31 Laboratory Lab, Adc Fam Pob I [facility] 1.2. 840.114 [id number] Univers 13:33:57 13:53:57 Only Jane Reardon 350.1.13.10 ity of [place] 4.2.7.2.686 Alexy as Professio [phone] Ms dical [facility] [address] [place] [address] 2019-12-31 2019-12-31 Outpatient R [facility] [id number] Univers 13:40:00 13:40:00 [id number] ity of [facility] 2019-12-31 2019-12-31 Outpatient R [facility] [id number] Univers 13:40:00 13:40:00 ity [facility] 2019-11-28 2019-11-28 Telephone Fidelia Driver 1.2.840.114 [id number] Univers 00:00:00 00:00:00 [facility] RENATE 350.1.13.10 it y of HOSPITAL 4.2.7.2.686 Alexy as [phone] [address] 2019-11-25 2019-11-25 Telephone Allyson Angelo BRINDA 1.2.840.114 [id number] Univers 00:00:00 00:00:00 RENATE 350.1.13.10 it y of HOSPITAL 4.2.7.2.686 Alexy as [id number] [address] 2019-11-23 2019-11-23 Emergency Fidelia Driver [facility] 1.2.840.114 [id number] Univers 11:15:20 13:13:00 [place] Ayoub 350.1.13.10 i ty of [place] 4.2.7.2.686 [facility] [id number] [address] 2019-11-23 2019-11-23 Orders Doctor PARRY 1.2.840.114 [id number] Univers 00:00:00 00:00:00 Only Unassigned, RENATE 350.1.13.10 ity of [place] [facility] 4.2.7.2.686 Alexy as [id number] [address] 2019-06-20 2019-06-21 Emergency [facility] [id number] Univers 22:52:24 01:30:00 Stephane Ayoub 350.1.13.10 i ty of [place] 4.2.7.2.686 [facility] [id number] [address] 2019-06-20 2019-06-20 Orders Doctor PARRY 1.2.840.114 [id number] Univers 00:00:00 00:00:00 Only Unassigned, RENATE 350.1.13.10 ity of [place] [facility] 4.2.7.2.686 Alexy as [id number] [address] 2018-12-30 2018-12-30 Emergency [facility] [id number] Univers 09:27:58 10:19:00 Homero Ayoub 350.1.13.10 i ty of [place] 4.2.7.2.686 [facility] [id number] [facility] [address] 2018-12-30 2018-12-30 Orders Doctor BRINDA 1.2.840.114 [id number] Univers 00:00:00 00:00:00 Only Unassigned, RENATE 350.1.13.10 ity of [place] [facility] 4.2.7.2.686 [facility] [phone] [facility] [address] Results Test Description Test Time Test Comments Results Result Comments Source RAPID STREP SCREEN FOR GROUP A 2020-12-12 13:56:49 Test Item Value Reference Range Interpretation Comme nts Streptococcus pyogenes (group A) antigen (test code = 58774- 2) Negative Negative Lab Interpretation (test code = 79070-4) Normal [facility] [id number] 16:35:08Examination:BI SCREENING MAMMOGRAM BILATERAL History:Patient is 39 year old and is seen for: ?Routine mammogram screening. Computer-aided detection (CAD) utilized. Comparisons: 04/11/2019 BI SCREENING MAMMOGRAM BILATERAL Findings:The breasts are almost entirely fatty. There is no evidence of suspicious masses, calcifications, or other abnormal findings. Impression:No mammographic evidence of malignancy. Recommendation:Annual mammographic follow- up BI-RADS Category: Both 1 [facility] FOR GROUP [id number] 17:43:00 Test Item Value Reference Range Interpretation Comments Streptococcus pyogenes (group A) Negative Negative antigen (test code = 33427-5) Lab Interpretation (test code = Normal 00846-0) [facility] [id number] 06:01:00 Test Item Value Reference Range Interpretation Comments TROPONIN I (test <0.012 See_Comment [Automated code = 0495474525) message] The system which generated this result transmitted reference range : <=0.034 ng/mL. The reference range was not used to interpr et this result as normal/abnormal . AQUILES (test code = Equal or Less than AQUILES) 0.034 ng/ml---Normal ?Note: Cardiac troponin begins to rise 3-4 hours after the onset of ischemia. Repeat in 4-6 hours if the sample was drawn within 3-4 hours of the onset of the symptom and found normal. Between 0.035 and 0.120 ng/mL--- Borderline. Questionable myocardial injury or necrosis ? ?Note: Serial measurement may be necessary to confirm or exclude the diagnosis of myocardial injury or necrosis; Clinical correlation (symptoms, EKGs, imaging studies, and others) required; Repeat in 4-6 hours if clinically indicated. ? Equal or Higher than 0.121 ng/mL---Abnormal. Myocardial Injury or Necrosis Likely ? Biotin has been reported to cause a negative bias, interpret results relative to patient's use of biotin. ? Lab Interpretation Normal (test code = 09500-8) [facility]2020-02-04 05:59:00 Test Item Value Reference Range Interpretation Comments APPEARANCE (test code = Hazy Clear A 5435985067) COLOR (test code = Yellow Yellow 6062489826) PH (test code = 4.8-8.0 7740785092) SP GRAVITY (test code = 1.003-1.030 3503993002) GLU U QUAL (test code = Normal Normal 5689106558) BLOOD (test code = 2+ Negative A 9425465486) KETONES (test code = Negative Negative 7965910439) PROTEIN (test code = Negative Negative 2887-8) UROBILIN (test code = Normal Normal 7544041356) BILIRUBIN (test code = Negative Negative 8290081164) NITRITE (test code = Negative Negative 1852769535) LEUK COLIN (test code = 75/uL Negative A 5070170765) RBC/HPF (test code = See_Comment H [Autom ated message] 9513137735) The system Linebacker generated this result transmitted ref erence range: 0 - 3 HP F. The reference range was not used to int erpret this result as normal/abnormal . WBC/HPF (test code = See_Comment H [Autom ated message] 4028550155) The system Linebacker generated this result transmitted ref erence range: 0 - 5 HP F. The reference range was not used to int erpret this result as normal/abnormal . BACTERIA (test code = Moderate Negative A 6380055118) MUCOUS (test code = Moderate Negative LPF A 4726953831) SQ EPITH (test code = HPF 0153533357) CA OXALATE (test code = See_Comment H [Au tomated message] 1435513256) The system Linebacker generated this result transmitted ref erence range: <=1 HPF. The reference range was not used to int erpret this result as normal/abnormal . Lab Interpretation (test Abnormal code = 95843-0) [facility] [id number] 05:58:00 Test Item Value Reference Range Interpretation Comments NT-proBNP (test code 98 pg/mL See_Comment [Autom ated = 4614481207) message] The system which generated this result transmitted reference range : <=125. The reference range was not used to interpret this result as normal/abnormal . AQUILES (test code = AQUILES) Biotin has been reported to cause a negative bias, interpret results relative to patient's use of biotin. Lab Interpretation Normal (test code = 91919-0) [facility]. METABOLIC PANEL (29572)2019-06-21 05:49:00 Test Item Value Reference Range Interpretation Comments NA (test code = 140 mmol/L 135-145 9773237635) K (test code = 3.5 mmol/L 3.5-5 5851703797) CL (test code = 104 mmol/L 98-108 1236549351) CO2 TOTAL (test code = 26 mmol/L 23-31 3269816570) AGAP (test code = 2-16 9426697749) BUN (test code = 16 mg/dL 7-23 2288769801) GLUCOSE (test code = 130 mg/dL 70-110 H 9450451077) CREATININE (test code = 0.49 mg/dL 0.5-1.04 L 8662512948) TOTAL BILI (test code = 0.2 mg/dL 0.1-1.2 5174472513) CALCIUM (test code = 9.1 mg/dL 8.6-10.6 7821063087) T PROTEIN (test code = 7.1 g/dL 6.3-8.2 2606248296) ALBUMIN (test code = 4.0 g/dL 3.5-5 5089786056) ALK PHOS (test code = 89 U/L 34-122 0552260727) ALTv (test code = 16 U/L 5-35 1742-6) AST(SGOT) (test code = 20 U/L 13-40 7167502128) eGFR Calculation mL/min/1.73m2 (Non-) (test code = 0792565101) eGFR Calculation mL/min/1.73m2 () (test code = 2430969905) AQUILES (test code = AQUILES) Association of Glomerular Filtration Rate (GFR) and Staging of Kidney Disease* + --+ --+ ------+| GFR (mL/min/1.73 m2) ?| With Kidney Damage ?| ?Without Kidney Damage+ --------+ --------+ +| ?>90 ?| ?Stage one ?| ? Normal ?+ ---+ ---+ -------+| ?60-89 ?| ?Stage two ?| ? Decreased GFR ? + --+ --+ ------+| ?30-59 ?| ?Stage three ?| ? Stage three ? + --+ --+ ------+| ?15-29 ?| ?Stage four ? | ? Stage four ?+ ---+ ---+ -------+| ?<15 (or dialysis) ? ?| ?Stage five ? | ? Stage five ?+ ---+ ---+ -------+ *Each stage assumes the associated GFR level has been in effect for at least three months. ?Stages 1 to 5, with or without kidney disease, indicate chronic kidney disease. Notes: Determination of stages one and two (with eGFR >59mL/min/1.73 m2) requires estimation of kidney damage for at least three months as defined by structural or functional abnormalities of the kidney, manifested by either:Pathological abnormalities or Markers of kidney damage (including abnormalities in the composition of the blood or urine or abnormalities in imaging tests). Lab Interpretation Abnormal (test code = 48086-3) [facility] WITH [id number] 05:35:00 Test Item Value Reference Range Interpretation Comments WBC (test code = See_Comment H [Automated 6690-2) message] The sy stem which generated this result transmitted reference range : 4.30 - 11.10 10*3/?L. The reference range was not used to interpret this result as normal/abnormal . RBC (test code = See_Comment [Automated 789-8) message] The sy stem which generated this result transmitted reference range : 3.93 - 5.25 10*6/?L. The reference range was not used to interpret this result as normal/abnormal . HGB (test code = 11.0 g/dL 11.6-15 L 718-7) HCT (test code = 35.9 % 35.7-45.2 4544-3) MCV (test code = 81.0 fL 80.6-95.5 787-2) MCH (test code = 24.8 pg 25.9-32.8 L 785-6) MCHC (test code = 30.6 g/dL 31.6-35.1 L 786-4) RDW-SD (test code = 39.3 fL 39-49.9 02163-3) RDW-CV (test code = 13.3 % 12-15.5 788-0) PLT (test code = See_Comment [Automated 777-3) message] The sy stem which generated this result transmitted reference range : 166 - 358 10*3/ ?L. The reference r lilly was not used to interpret this result as normal/abnormal . MPV (test code = 9.6 fL 9.5-12.9 00570-9) NRBC/100 WBC (test See_Comment [Automat ed code = 2481773899) message] The system which generated this result transmitted reference range : 0.0 - 10.0 /100 WBCs. The refer ence range was not u sed to interpret th is result as normal/abnormal . NRBC x10^3 (test code <0.01 See_Comment [Auto mated = 0851039346) message] The s ystem which generated this result transmitted reference range : 10*3/?L. The reference range was not used to interpret this result as normal/abnormal . GRAN MAT (NEUT) % 66.1 % (test code = 770-8) IMM GRAN % (test code 0.60 % = 1670574570) LYMPH % (test code = 23.8 % 736-9) MONO % (test code = 6.5 % 5905-5) EOS % (test code = 2.5 % 713-8) BASO % (test code = 0.5 % 706-2) GRAN MAT x10^3(ANC) 7.73 10*3/uL 1.88-7.09 H (test code = 8202724926) IMM GRAN x10^3 (test 0.07 10*3/uL 0-0.06 H code = 0763696906) LYMPH x10^3 (test code 2.78 10*3/uL 1.32-3.29 = 731-0) MONO x10^3 (test code 0.76 10*3/uL 0.33-0.92 = 742-7) EOS x10^3 (test code = 0.29 10*3/uL 0.03-0.39 711-2) BASO x10^3 (test code 0.06 10*3/uL 0.01-0.07 = 704-7) Lab Interpretation Abnormal (test code = 20695-3) [facility]"
[2021-04-10] MEDS ORDERED: HYDROCODONE/APAP 10/325 TAB ONE (06:57)
--- NOTE | 2021-04-10 08:10 | RAD REPORT ---
EXAM DESCRIPTION: Ribs Right - 04/10/2021 7:52 am CLINICAL HISTORY: PAIN COMPARISON: No comparisonsNone. FINDINGS: No displaced rib fracture is evident. No non-displaced rib fracture suspected. No aggressive rib lesion. No underlying pneumothorax, effusion, infiltrate or pulmonary contusion. Body habitus affects limit rib detail. IMPRESSION: Negative right rib series.
--- NOTE | 2021-04-10 09:16 | ER ---
Nurse's Notes [facility] Name: Viola Spencer Age: 40 yrs Sex: Female : 1980 Arrival Date: 04/10/2021 Time: 06:39 Bed 18 Private MD: Diagnosis: Rib Contusion Presentation: 04/10 06:44 Chief complaint: Patient states: "This tall zaira gave me a hug on Thursday and I heard a ss pop and now I have a lot of pain." PT c/o R lateral chest wall pain that began 2 days ago. Coronavirus screen: Client denies travel out of the [place] in the last 14 days. Ebola Screen: Patient denies exposure to infectious person. Patient denies travel to an Ebola-affected area in the 21 days before illness onset. Initial Sepsis Screen: Does the patient meet any 2 criteria? No. Patient's initial sepsis screen is negative. Does the patient have a suspected source of infection? No. Patient's initial sepsis screen is negative. Risk Assessment: Do you want to hurt yourself or someone else? Patient reports no desire to harm self or others. Onset of symptoms was April 07, 2021. 06:44 Method Of Arrival: Ambulatory ss 06:44 Acuity: KARRIE 4 ss Triage Assessment: 07:15 General: Appears uncomfortable, obese, well groomed, well developed, Behavior is. sl2 07:15 Respiratory: Reports pain with movement since pain with respiration Airway is sl2 patent Trachea midline Respiratory effort is even, unlabored, Respiratory pattern is regular, symmetrical, Onset: The symptoms/episode began/occurred 04/07/21, the patient has moderate shortness of breath. Musculoskeletal: Reports pain in right flank, right ribs. 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 - Social history:: Smoking status: Patient/guardian denies using tobacco, the patient reports quitting approximately 2 years ago. Screenin:06 Abuse screen: Denies threats or abuse. Nutritional screening: No deficits noted. sl2 Tuberculosis screening: No symptoms or risk factors identified. Fall Risk None identified. Assessment: 07:06 Pain: Complains of pain in right ribs. Cardiovascular: Rhythm is regular. Respiratory: sl2 Airway is patent Trachea midline Respiratory effort is even, unlabored, Respiratory pattern is regular, symmetrical, Vital Signs: 06:44 Resp 19; Weight 156.04 kg; Height 5 ft. 4 in. (162.56 cm); Pain 9/10; ss 06:47 BP 126 / 43; Pulse 100; Resp 16; Temp 98.7; Pulse Ox 100% on R/A; cc4 08:00 BP 174 / 99; Pulse 93; Resp 18; Temp 98.8(O); Pulse Ox 100% on R/A; sl2 08:33 BP 167 / 97; Pulse 94; Resp 18; Pulse Ox 97% on R/A; sl2 09:00 BP 169 / 90; Pulse 90; Resp 18; Pulse Ox 99% ; sl2 06:44 Body Mass Index 59.05 (156.04 kg, 162.56 cm) ED Course: 06:39 Patient arrived in ED. wm 06:40 Gareth Mei PA is PHCP. jmm 06:40 Ignacio Pederson MD is Attending Physician. jmm 06:45 Triage completed. ss 06:46 Arm band placed on right wrist. ss 06:53 Janet Watkins, ESTEE is Primary Nurse. cc4 06:55 Ribs Right XRAY Sent. cc4 07:06 Patient has correct armband on for positive identification. sl2 07:06 No provider procedures requiring assistance completed. Patient did not have IV access sl2 during this emergency room visit. 07:39 Patient moved to radiology. sl2 07:51 Patient moved back from radiology. sl2 07:52 Ribs Right XRAY In Process Unspecified. EDMS Administered Medications: 07:01 Drug: [place] (HYDROcodone-acetaminophen) 10 mg-325 mg 1 tabs Route: PO; cc4 09:00 Follow up: Response: No adverse reaction; Marked relief of symptoms; Pain is decreased sl2 Outcome: 09:15 Discharge ordered by MD. fagan :23 Discharged to home ambulatory. sl2 : Discharged to home : Condition: good :23 Condition: stable : Discharge instructions given to patient, Instructed on discharge instructions. : Instructed on follow up and referral plans. medication usage, Demonstrated understanding of instructions, follow-up care, medications, Prescriptions given X 1. 09:24 Patient left the ED. sl2 Signatures: Dispatcher [employer] EDMS Gareth Mei PA PA jmm Smirch, Shelby, RN RN Leonarda Roche Christie, RN RN cc4 Radha Hidalgo RN RN sl2
--- NOTE | 2021-04-10 09:16 | EDPHYS ---
Physician Documentation [facility] Name: Viola Spencer Age: 40 yrs Sex: Female : 1980 Arrival Date: 04/10/2021 Time: 06:39 Bed 18 Private MD: CRISTOBAL Physician Ignacio Pederson HPI: 04/10 07:24 This 40 yrs old Female presents to ER via Ambulatory with complaints of Flank jmm Pain, Breathing Difficulty. 07:24 The patient complains of pain in the right flank. Onset: The symptoms/episode jmm began/occurred acutely, 3 day(s) ago. Modifying factors: The symptoms are alleviated by nothing. the symptoms are aggravated by nothing. Associated signs and symptoms: Pertinent negatives: fever. The patient has not experienced similar symptoms in the past. Patient states feeling a pop after being hugged this past Thursday. . 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 - Social history:: Smoking status: Patient/guardian denies using tobacco, the patient reports quitting approximately 2 years ago. ROS: 07:24 Constitutional: Negative for fever, chills, and weight loss, Cardiovascular: Negative jmm for chest pain, palpitations, and edema, Respiratory: Negative for shortness of breath, cough, wheezing, and pleuritic chest pain. 07:24 All other systems are negative. Exam: 07:24 Constitutional: This is a well developed, well nourished patient who is awake, alert, jmm and in no acute distress. Head/Face: atraumatic. Eyes: EOMI, no conjunctival erythema appreciated ENT: Moist Mucus Membranes Neck: Trachea midline, Supple 07:24 Cardiovascular: Regular rate and rhythm. No edema appreciated Respiratory: Normal respirations, no respiratory distress appreciated Abdomen/GI: Non distended, soft Back: Normal ROM Skin: General appearance color normal MS/ Extremity: Moves all extremities, no obvious deformities appreciated, no edema noted to the lower extremities Neuro: Awake and alert, normal gait Psych: Behavior is normal, Mood is normal, Patient is cooperative and pleasant 07:24 Chest/axilla: right anterolateral rib pain on palpation. Vital Signs: 06:44 Resp 19; Weight 156.04 kg; Height 5 ft. 4 in. (162.56 cm); Pain 9/10; ss 06:47 BP 126 / 43; Pulse 100; Resp 16; Temp 98.7; Pulse Ox 100% on R/A; cc4 08:00 BP 174 / 99; Pulse 93; Resp 18; Temp 98.8(O); Pulse Ox 100% on R/A; sl2 08:33 BP 167 / 97; Pulse 94; Resp 18; Pulse Ox 97% on R/A; sl2 09:00 BP 169 / 90; Pulse 90; Resp 18; Pulse Ox 99% ; sl2 06:44 Body Mass Index 59.05 (156.04 kg, 162.56 cm) ss MDM: 06:47 Patient medically screened. jos 08:17 Data reviewed: vital signs, nurses notes. Counseling: I had a detailed discussion with rylan the patient and/or guardian regarding: the historical points, exam findings, and any diagnostic results supporting the discharge/admit diagnosis, radiology results, the need for outpatient follow up, to return to the emergency department if symptoms worsen or persist or if there are any questions or concerns that arise at home. 04/10 06:49 Order name: Ribs Right XRAY; Complete Time: 08:14 [facility] 04/10 08:19 Order name: INCENTIVE SPIROMETRY rylan Administered Medications: 07:01 Drug: [place] (HYDROcodone-acetaminophen) 10 mg-325 mg 1 tabs Route: PO; cc4 09:00 Follow up: Response: No adverse reaction; Marked relief of symptoms; Pain is decreased sl2 Disposition: 09:25 Co-signature as Attending Physician, Ignacio Pederson MD I agree with the assessment and jos plan of care. Disposition Summary: 11/24/21 09:15 Discharge Ordered Location: Home [facility] Condition: Stable jm Diagnosis - Rib Contusion [facility] Followup: [facility] - With: Private Physician - When: 2 - 3 days - Reason: Recheck today's complaints, Continuance of care, Re-evaluation by your physician Discharge Instructions: - Discharge Summary Sheet [facility] - Rib Contusion [facility] - How to Use an Incentive Spirometer [facility] Forms: - Medication Reconciliation Form [facility] - Thank You Letter [facility] - Antibiotic Education [facility] - Prescription Opioid Use [facility] Prescriptions: - orphenadrine citrate 100 mg Oral Tablet Sustained Release - take 1 tablet by ORAL route 2 times per day As needed; 20 tablet; Refills: 0, jm Product Selection Permitted Signatures: Dispatcher [employer] EDIgnacio Torres MD MD cha Mickail, Joel, PA PA jmm Smirch, Shelby, RN RN ss Janet Watkins RN RN cc4 Radha Hidalgo RN RN sl2
[2021-04-10 09:33] VITALS: TEMP 98.8
[2021-04-10 09:35] VITALS: BP 169/90; O2SAT 99
== END 2021-04-10 09:24 | disposition home or self-care (01) ==
LOC: ER 06:33
DX: S20.211A Contusion of right front wall of thorax, initial encounter (principal); I10 Essential (primary) hypertension; F31.9 Bipolar disorder, unspecified; Z88.8 Allergy status to other drugs, medicaments and biological substances
CPT/HCPCS: 99283

== ENCOUNTER 2022-11-28 15:07 | Emergency (ER) | payer OTHER ==
--- OUTSIDE RECORDS SUMMARY | 2022-11-28 15:13 | XMS REPORT | Continuity of Care Document ---
:1980 Author Organization [facility] t Address [address] [facility] [address] [place] [address] Care Team Providers Name Role Phone ZAINAB DOWNEY Primary Care Physician Unavailable CHAI PANDYA Attending Clinician Unavailable CHAI PANDYA Attending Clinician Unavailable MARIELA EASTMAN Attending Clinician Unavailable JOSE FRANCES Attending Clinician Unavailable Jose Frances MD Attending Clinician 2, [facility] Attending Clinician Unavailable Mariela Eastman PA-C Attending Clinician EMMANUEL LAYNE Attending Clinician Unavailable URIAH CALHOUN Attending Clinician Unavailable Uriah Calhoun MD Attending Clinician UNKNOWN, ATTENDING Attending Clinician Unavailable Smita Gruber MD Attending Clinician Unknown, Attending Attending Clinician Unavailable SUBHA DOWNEY Attending Clinician Unavailable Subha Shen Attending Clinician Doctor Unassigned, [place] Attending Clinician Unavailable LD DIXON Attending Clinician Unavailable Ld Espinal Attending Clinician Meera Gatica MD Attending Clinician Seble Mars DO Attending Clinician ISRRAEL RIOS Attending Clinician Unavailable ISRRAEL RIOS Attending Clinician Unavailable 1, [facility] Attending Clinician Unavailable Isrrael Rios MD Attending Clinician Only, [facility] Attending Clinician Unavailable Neal Kaur MD Attending Clinician Cornelio Quezada DO Attending Clinician Brianda SMELTER LINER, STOCKFEED MILLER, Nuha Carter Attending Clinician Unavailable Jazmyn Stevens MD Attending Clinician Ana Maria Walsh Attending Clinician Wilmer FONTANEZ, Marisol Attending Clinician Unavailable Lab, [facility] Attending Clinician Unavailable Jane Menendez Attending Clinician Fidelia Rosario Attending Clinician Gi FONTANEZ, Allyson Attending Clinician Unavailable Stephane Woodard DO Attending Clinician SUBHA DOWNEY Admitting Clinician Unavailable MARIELA EASTMAN Admitting Clinician Unavailable LD DXION Admitting Clinician Unavailable Payers Payer Name Policy Type Policy Number Effective Date Expiration Date [facility] [id number] 2018 [facility] MEDICAID 00:00:00 Problems Condition Condition Condition Status Onset Resolution Last Treating Co mments Source Name Details Category Date Date Treatment Clinician Date Hypertensi Hypertensi Disease Active U nivers ve ve 3-17 ity of disorder disorder 00:00: [address] Bipolar 1 Bipolar 1 Disease Active Uni vers disorder disorder 3-17 ity of 00:00: [address] Depression Depression Disease Active U nivers 3-17 ity of 00:00: [address] Sleep-diso Sleep-diso Disease Active Overview : Univers rdered rdered 2-02 Formattin ity of breathing breathing 00:00: [place] 00 note Medical might be Branch different from the original. Last Assessmen t & Plan: Formattin g of this note might be different from the original. Patient had never done previousl y ordered sleep study. I advised her to call [facility] to schedule study and to have results faxed and emailed to use. I advised her to keep us updated regarding when she did the study and received the results. I also gave her the phone number for the [facility] and asked her to do the sleep study there if [facility] was unable to do it. Disorder Disorder Disease Active Overview: Un denise of of 2-02 Formattin ity of initiating initiating 00:00: g of this and and note Medical maintainin maintainin might be Branch g sleep g sleep different from the original. Last Assessmen t & Plan: Formattin g of this note might be different from the original. [...] melatonin (1-3mg) use 2 hours before bedtime. 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) Cervical Cervical Disease Active 2018-05 Unive rs high risk high risk 2-04 ity of human human 00:00: [place] papillomav papillomav 00 Me dical irus (HPV) irus (HPV) Br anch DNA test DNA test positive positive Exposure Exposure Disease Active Unive rs to STD to STD 3-22 ity of 00:00: 00 Medical Branch Elevated Elevated Disease Active Unive rs blood blood 3-22 ity of pressure pressure 00:00: [place] reading reading 00 Medical without without Branch diagnosis diagnosis of of hypertensi hypertensi on on Morbid Morbid Disease Active Univers obesity obesity 3-22 ity of 00:00: [place] 00 Medical Branch Allergies, Adverse Reactions, Alerts Allergy Allergy Status Severity Reaction(s) Onset Inactive Treating Comm ents Source Name Type Date Date Clinician Lisinopr Propensi Active Cough Univer s il ty to 7-12 ity of adverse 00:00: [place] reaction 00 Medical s Branch LISINOPR DRUG Active COUGH Univers IL INGREDI 11-26 ity of 00:00: [address] Social History Social Habit Start Date Stop Date Quantity Comments Source Gender identity Universit y [facility] Sexual orientation Univer sity [facility] Alcohol intake 2022-11-24 2022-11-24 .24 /d University 00:00:00 00:00:00 [facility] Exposure to 2022-06-23 2022-07-03 Not sure [facility] SARS-CoV-2 (event) 00:00:00 08:49:00 [facility] Tobacco use and 2022-02-25 2022-02-25 Smokeless Universit y of exposure 00:00:00 00:00:00 tobacco non-user [facility] History of Social 2021-07-03 2021-07-03 [facility] ity of function 00:00:00 00:00:00 [facility] History of tobacco 2019-01-06 Passive smoker Un iversity of use 00:00:00 [facility] Sex Assigned At [address] [facility] 00:00[facility]00 [facility] Smoking Status Start Date Stop Date Source Smokes tobacco daily 2022-02-25 00:00:00 [facility] ity [facility] Ex-smoker 2019-04-04 00:00:00 2019-04-04 [facility]00[facility] Medications Ordered Filled Start Stop Current Ordering Indication Dosage Frequency Signature Comments Components Source Medication Medication Date Date Medication? Clinician (SIG) Name Name ondansetron 2022- No 4mg 4 mg, Univ ers (ZOFRAN-ODT 11-24 Oral, ity of ) 17:00: 16:25 ONCE, 1 [place] disintegrat 00 :00 dose, On Medi orly ing tablet Mon Branch 4 mg 11/24/22 at 1200, PRIMITIVO HYDROcodone 2022- No 1{tbl} 1 tablet, Univers -acetaminop 11-24 Oral, ity of hen (NORCO) 17:00: 16:25 [place]CE[place] 1 [place] 10-325 mg 00 :00 dose, On Medica l tablet 1 Mon Branch tablet 11/24/22 at 1200, Routine naproxen 2022- Yes [id number] 500mg Take 1 Univers 500 mg 11-24- [id number] tablet by ity o f tablet 00:00: 04:59 mouth in [place] 00 :00 the Medical morning Branch and 1 tablet in the evening. Take with meals. Do all this for 10 days. HYDROcodone 2022- Yes [id number] 1{tbl} Take 1 U nivers -acetaminop 11-24 tablet by it y of hen (NORCO) 00:00: 04:59 mouth [place] 7.5-325 mg 00 :00 every 8 Medica l per tablet (eight) Branch hours as needed for Pain for up to 7 days. Indication s: acute pain metroNIDAZO 2022-0 Yes [id number] 500mg Take 1 Univers LE 500 mg 2-21 tablet by ity o f tablet 00:00: mouth [place] 00 every 12 Medical (twelve) Branch hours. metroNIDAZO 0 Yes [id number] 500mg Take 1 Univers LE 500 mg 2-21 tablet by ity o f tablet 00:00: mouth [place] 00 every 12 Medical (twelve) Branch hours. metroNIDAZO 2022- No [id number] 500mg Take 1 Univers LE 500 mg -07 07- tablet by ity of tablet 00:00: 05:59 mouth [place] 00 :00 every 12 Medical (twelve) Branch hours for 7 days. metroNIDAZO 2022- No [id number] 500mg Take 1 Univers LE 500 mg 2-20 - tablet by ity of tablet 00:00: 00:00 mouth [place] 00 :00 every 12 Medical (twelve) Branch hours for 7 days. QUEtiapine 2022- No 1{tbl} Take 1 Un denise 100 mg 2-16 -16 tablet by ity of tablet 11:35: 00:00 mouth [place] 43 :00 every Medical morning. Branch QUEtiapine 2022- No 1{tbl} Take 1 Un denise 100 mg 2-16 -16 tablet by ity of tablet 11:35: 00:00 mouth [place] 43 :00 every Medical morning. Branch carvedilol 2022- No Take by Uni vers (COREG) 2-16 -16 mouth 2 ity of 12.5 mg 11:35: 00:00 (two) [place] tablet 06 :00 times Medical daily with Branch meals. carvedilol 2022- No Take by Uni vers (COREG) 2-16 02-16 mouth 2 ity of 12.5 mg 11:35: 00:00 (two) [place] tablet 06 :00 times Medical daily with Branch meals. meloxicam Yes 1{capsu Take 1 Uni vers submicroniz 2-16 le} capsule by it y of ed 10 mg 08:53: mouth [place] Cap 32 daily. Medical Branch meloxicam Yes 1{capsu Take 1 Uni vers submicroniz 2-16 le} capsule by it y of ed 10 mg 08:53: mouth [place] Cap 32 daily. Medical Branch meloxicam Yes 1{capsu Take 1 Uni vers submicroniz 2-16 le} capsule by it y of ed 10 mg 08:53: mouth [place] Cap 32 daily. Medical Branch meloxicam Yes 1{capsu Take 1 Uni vers submicroniz 2-16 le} capsule by it y of ed 10 mg 08:53: mouth [place] Cap 32 daily. Medical Branch meloxicam Yes 1{capsu Take 1 Uni vers submicroniz 2-16 le} capsule by it y of ed 10 mg 08:53: mouth [place] Cap 32 daily. Medical Branch meloxicam Yes 1{capsu Take 1 Uni vers submicroniz 2-16 le} capsule by it y of ed 10 mg 08:53: mouth [place] Cap 32 daily. Medical Branch lidocaine 2021-05- No [id number] 10mL Un denise 1% (PF) 0- 10- ity of (XYLOCAINE) 15:30: 15:30 [place] injection 00 :00 Medical 10 mL Branch methylPREDN 2021-05- No [id number] 40mg Univers ISolone 0-12 03- ity of acetate 15:30: 15:31 [place] (DEPO-MEDRO 00 :00 Medical L) Branch injection 40 mg sodium 2021-05- No [id number] 1mL Unive rs bicarbonate 0-12 03- ity of 1 mEq/mL 15:30: 15:31 [place] (8.4 %) 00 :00 Medical injection 1 Branch mL NaCl 0.9% 2021-05 No [id number] 10mL Un denise (NS) 003-12 ity of injection 15:30: 15:31 [place] 10 mL 00 :00 Medical Branch NaCl 0.9% [id number] 10mL 10 mL, Univers (NS) 003-12 Infiltrati ity of injection 15:30: 15:31 [place] ONCE, [place] 10 mL 00 :00 1 dose, On Medical Wed Branch 03/12/22 at 1045, Routine sodium 2021-05 No [id number] 1mL 1 mL, Univ ers bicarbonate 03-12 Infiltrati i ty of 1 mEq/mL 15:30: 15:31 on, ONCE, [place] (8.4 %) 00 :00 1 dose, On Medica l injection 1 Wed Branch mL 03/12/22 at 1045, Routine methylPREDN 2021-05 No [id number] 40mg 40 mg, Univers ISolone 03-12 Intra-patty ity o f acetate 15:30: 15:31 [facility] [place] (DEPO-MEDRO 00 :00 ONCE, 1 Medic al L) dose, On Branch injection Wed 40 mg 03/12/22 at 1045, Routine lidocaine 2021-05 No [id number] 10mL 10 mL, Univers 1% (PF) 003-12 Infiltrati ity o f (XYLOCAINE) 15:30: 15:30 on, ONCE, [place] injection 00 :00 1 dose, On Medi orly 10 mL Wed Branch 03/12/22 at 1045, Routine lidocaine 2021-05 No [id number] 10mL Un denise 1% (PF) 003-12 ity of (XYLOCAINE) 15:30: 15:30 [place] injection 00 :00 Medical 10 mL Branch methylPREDN 2021-05 No [id number] 40mg Univers ISolone 03-12 ity of acetate 15:30: 15:31 [place] (DEPO-MEDRO 00 :00 Medical L) Branch injection 40 mg sodium 2021-05 No [id number] 1mL Unive rs bicarbonate 03-12 ity of 1 mEq/mL 15:30: 15:31 [place] (8.4 %) 00 :00 Medical injection 1 Branch mL NaCl 0.9% 2021-05 No [id number] 10mL Un denise (NS) 03-12 ity of injection 15:30: 15:31 [place] 10 mL 00 :00 Medical Branch NaCl 0.9% 2021-05 No [id number] 10mL 10 mL, Univers (NS) 03-12 Infiltrati ity of injection 15:30: 15:31 [place] ONCE, [place] 10 mL 00 :00 1 dose, On Medical Wed Branch 03/12/22 at 1045, Routine sodium 2021-05 No [id number] 1mL 1 mL, Univ ers bicarbonate 03-12 Infiltrati i ty of 1 mEq/mL 15:30: 15:31 on, ONCE, [place] (8.4 %) 00 :00 1 dose, On Medica l injection 1 Wed Branch mL 03/12/22 at 1045, Routine methylPREDN 2021-05 No [id number] 40mg 40 mg, Univers ISolone 03-12 Intra-patty ity o f acetate 15:30: 15:31 [place] (DEPO-MEDRO 00 :00 ONCE, 1 Medic al L) dose, On Branch injection Wed 40 mg 03/12/22 at 1045, Routine lidocaine 2021-05- No [id number] 10mL 10 mL, Univers 1% (PF) 03-12 Infiltrati ity o f (XYLOCAINE) 15:30: 15:30 on, ONCE, [place] injection 00 :00 1 dose, On Medi orly 10 mL Wed Branch 03/12/22 at 1045, Routine lactated 2021-05- No [id number] 500mL Un denise ringers IV 03-12 ity of infusion 14:45: 15:04 [place] 500 mL 00 :00 Medical Branch lactated 2021-05- No [id number] 500mL at 20 U nivers ringers IV - mL/hr, 500 it y of infusion 14:45: 15:04 mL, IV [place] 500 mL 00 :00 Infusion, Medical ONCE, 1 Branch dose, On Thu03/12/22 at 0945, Routine lactated 2021-05- No [id number] 500mL Un denise ringers IV 0-26 10-26 ity of infusion 14:45: 15:04 [place] 500 mL 00 :00 Medical Branch lactated 2021-05- No [id number] 500mL at 20 U nivers ringers IV 0-26 10-26 mL/hr, 500 it y of infusion 14:45: 15:04 mL, IV [place] 500 mL 00 :00 Infusion, Medical ONCE, 1 Branch dose, On Thu03/12/22 at 0945, Routine gabapentin 2021-05 Yes [id number] 300mg Take 1 Univers 300 mg 0-11 capsule by ity of capsule 00:00: mouth in [address] and 1 capsule at noon and 1 capsule in the evening. gabapentin 2021-05 Yes [id number] 300mg Take 1 Univers 300 mg 0-11 capsule by ity of capsule 00:00: mouth in [address] and 1 capsule at noon and 1 capsule in the evening. gabapentin 2021-05 Yes [id number] 300mg Take 1 Univers 300 mg 0-11 capsule by ity of capsule 00:00: mouth in [address] and 1 capsule at noon and 1 capsule in the evening. gabapentin 2021-05 Yes [id number] 300mg Take 1 Univers 300 mg 0-11 capsule by ity of capsule 00:00: mouth in [address] and 1 capsule at noon and 1 capsule in the evening. gabapentin 2021-05 Yes [id number] 300mg Take 1 Univers 300 mg 0-11 capsule by ity of capsule 00:00: mouth in [address] and 1 capsule at noon and 1 capsule in the evening. gabapentin 2021-05 Yes [id number] 300mg Take 1 Univers 300 mg 0-11 capsule by ity of capsule 00:00: mouth in [address] and 1 capsule at noon and 1 capsule in the evening. gabapentin 2021-05 Yes [id number] 300mg Take 1 Univers 300 mg 0-11 capsule by ity of capsule 00:00: mouth in [address] and 1 capsule at noon and 1 capsule in the evening. gabapentin 2021-05 Yes [id number] 300mg Take 1 Univers 300 mg 0-11 capsule by ity of capsule 00:00: mouth in [place] [address] the Medical morning Branch and 1 capsule at noon and 1 capsule in the evening. gabapentin 2021- Yes [id number] 300mg Take 1 Univers 300 mg 0-11 capsule by ity of capsule 00:00: mouth in [place] [address] the Medical morning Branch and 1 capsule at noon and 1 capsule in the evening. gabapentin 2021- Yes [id number] 300mg Take 1 Univers 300 mg 0-11 capsule by ity of capsule 00:00: mouth in [place] [address] the Medical morning Branch and 1 capsule at noon and 1 capsule in the evening. gabapentin 2021- Yes [id number] 300mg Take 1 Univers 300 mg 0-11 capsule by ity of capsule 00:00: mouth in [place] [address] the Medical morning Branch and 1 capsule at noon and 1 capsule in the evening. gabapentin 2021- Yes [id number] 300mg Take 1 Univers 300 mg 0-11 capsule by ity of capsule 00:00: mouth in [place] [address] the Medical morning Branch and 1 capsule at noon and 1 capsule in the evening. gabapentin 2021- Yes [id number] 300mg Take 1 Univers 300 mg 0-11 capsule by ity of capsule 00:00: mouth in [place] [address] the Medical morning Branch and 1 capsule at noon and 1 capsule in the evening. GABAPENTIN 2021-0 Yes [id number] TAKE 1 Univers 300 mg 9-22 CAPSULE BY ity of capsule 00:00: MOUTH [place] 00 TWICE Medical DAILY Branch NEEDED FOR PAIN GABAPENTIN 2021-0 202- No [id number] TAKE 1 Univers 300 mg 9-22 10-11 CAPSULE BY ity of capsule 00:00: 00:00 MOUTH [place] 00 :00 TWICE Medical DAILY Branch NEEDED FOR PAIN GABAPENTIN 2021-0 202- No [id number] TAKE 1 Univers 300 mg 9-22 10-11 CAPSULE BY ity of capsule 00:00: 00:00 MOUTH [place] 00 :00 TWICE Medical DAILY Branch NEEDED FOR PAIN GABAPENTIN 2021-0 202- No [id number] TAKE 1 Univers 300 mg 9-22 10-11 CAPSULE BY ity of capsule 00:00: 00:00 MOUTH [place] 00 :00 TWICE Medical DAILY Branch NEEDED FOR PAIN GABAPENTIN 2021-0 Yes [id number] TAKE 1 Univers 300 mg 8-23 CAPSULE BY ity of capsule 00:00: MOUTH [place] 00 TWICE Medical DAILY Branch NEEDED FOR PAIN GABAPENTIN 2021-0 Yes [id number] TAKE 1 Univers 300 mg 8-23 CAPSULE BY ity of capsule 00:00: MOUTH [place] 00 TWICE Medical DAILY Branch NEEDED FOR PAIN GABAPENTIN 2021-0 Yes [id number] TAKE 1 Univers 300 mg 8-23 CAPSULE BY ity of capsule 00:00: MOUTH [place] 00 TWICE Medical DAILY Branch NEEDED FOR PAIN GABAPENTIN 2021-0 2022- No [id number] TAKE 1 Univers 300 mg 8-23 09-22 CAPSULE BY ity of capsule 00:00: 00:00 MOUTH [place] 00 :00 TWICE Medical DAILY Branch NEEDED FOR PAIN gabapentin 2021-0 Yes [id number] 300mg Take 1 Univers 300 mg 7-19 capsule by ity of capsule 00:00: mouth 2 [place] (two) Medical times Branch daily as needed for Pain (scale 7-10). gabapentin 2021-0 Yes [id number] 300mg Take 1 Univers 300 mg 7-19 capsule by ity of capsule 00:00: mouth 2 (two) Medical times Branch daily as needed for Pain (scale 7-10). gabapentin 2021-0 2- No [id number] 300mg Take 1 Univers 300 mg 7-19 08-23 capsule by ity of capsule 00:00: 00:00 mouth 2 [place] 00 :00 (two) Medical times Branch daily as needed for Pain (scale 7-10). methocarbam 2021-0 Yes [id number] 500mg Take 1 Univers oL 500 mg 3-12 tablet by ity o f tablet 00:00: mouth (four) Medical times Branch daily as needed for Pain (scale 4-6). naproxen 2021-0 Yes [id number] 500mg Take 1 U nivers (NAPROSYN) 3-12 tablet by ity of 500 mg 00:00: mouth 2 [place] tablet 00 (two) Medical times Branch daily with meals. methocarbam 202-0 Yes [id number] 500mg Take 1 Univers oL 500 mg 3-12 tablet by ity o f tablet 00:00: mouth 4 [place] 00 (four) Medical times Branch daily as needed for Pain (scale 4-6). naproxen 2022-0 Yes [id number] 500mg Take 1 U nivers (NAPROSYN) 3-12 tablet by ity of 500 mg 00:00: mouth 2 [place] tablet 00 (two) Medical times Branch daily with meals. methocarbam 2022-0 Yes [id number] 500mg Take 1 Univers oL 500 mg 3-12 tablet by ity o f tablet 00:00: mouth 4 [place] (four) Medical times Branch daily as needed for Pain (scale 4-6). naproxen 2022-0 Yes [id number] 500mg Take 1 U nivers (NAPROSYN) 3-12 tablet by ity of 500 mg 00:00: mouth 2 [place] tablet 00 (two) Medical times Branch daily with meals. methocarbam 2022-0 Yes [id number] 500mg Take 1 Univers oL 500 mg 3-12 tablet by ity o f tablet 00:00: mouth 4 [place] (four) Medical times Branch daily as needed for Pain (scale 4-6). naproxen 2022-0 Yes [id number] 500mg Take 1 U nivers (NAPROSYN) 3-12 tablet by ity of 500 mg 00:00: mouth 2 [place] tablet 00 (two) Medical times Branch daily with meals. methocarbam 2022-0 Yes [id number] 500mg Take 1 Univers oL 500 mg 3-12 tablet by ity o f tablet 00:00: mouth 4 (four) Medical times Branch daily as needed for Pain (scale 4-6). naproxen 2022-0 Yes [id number] 500mg Take 1 U nivers (NAPROSYN) 3-12 tablet by ity of 500 mg 00:00: mouth 2 [place] tablet 00 (two) Medical times Branch daily with meals. methocarbam 2022-0 Yes [id number] 500mg Take 1 Univers oL 500 mg 3-12 tablet by ity o f tablet 00:00: mouth 4 [place] (four) Medical times Branch daily as needed for Pain (scale 4-6). naproxen 2022-0 Yes [id number] 500mg Take 1 U nivers (NAPROSYN) 3-12 tablet by ity of 500 mg 00:00: mouth 2 [place] tablet 00 (two) Medical times Branch daily with meals. methocarbam 2022-0 Yes [id number] 500mg Take 1 Univers oL 500 mg 3-12 tablet by ity o f tablet 00:00: mouth 4 [place] (four) Medical times Branch daily as needed for Pain (scale 4-6). naproxen 2022-0 Yes [id number] 500mg Take 1 U nivers (NAPROSYN) 3-12 tablet by ity of 500 mg 00:00: mouth 2 [place] tablet 00 (two) Medical times Branch daily with meals. methocarbam 2022-0 Yes [id number] 500mg Take 1 Univers oL 500 mg 3-12 tablet by ity o f tablet 00:00: mouth 4 [place] 00 (four) Medical times Branch daily as needed for Pain (scale 4-6). naproxen 2022-0 Yes [id number] 500mg Take 1 U nivers (NAPROSYN) 3-12 tablet by ity of 500 mg 00:00: mouth 2 [place] tablet 00 (two) Medical times Branch daily with meals. methocarbam 2022-0 Yes [id number] 500mg Take 1 Univers oL 500 mg 3-12 tablet by ity o f tablet 00:00: mouth 4 [place] (four) Medical times Branch daily as needed for Pain (scale 4-6). naproxen 2022-0 Yes [id number] 500mg Take 1 U nivers (NAPROSYN) 3-12 tablet by ity of 500 mg 00:00: mouth 2 [place] tablet 00 (two) Medical times Branch daily with meals. methocarbam 2022-0 Yes [id number] 500mg Take 1 Univers oL 500 mg 3-12 tablet by ity o f tablet 00:00: mouth 4 [place] 00 (four) Medical times Branch daily as needed for Pain (scale 4-6). naproxen 2022-0 Yes [id number] 500mg Take 1 U nivers (NAPROSYN) 3-12 tablet by ity of 500 mg 00:00: mouth 2 [place] tablet 00 (two) Medical times Branch daily with meals. methocarbam 2022-0 Yes [id number] 500mg Take 1 Univers oL 500 mg 3-12 tablet by ity o f tablet 00:00: mouth 4 [place] 00 (four) Medical times Branch daily as needed for Pain (scale 4-6). naproxen 2022-0 Yes [id number] 500mg Take 1 U nivers (NAPROSYN) 3-12 tablet by ity of 500 mg 00:00: mouth 2 [place] tablet 00 (two) Medical times Branch daily with meals. methocarbam 2022-0 Yes [id number] 500mg Take 1 Univers oL 500 mg 3-12 tablet by ity o f tablet 00:00: mouth 4 [place] 00 (four) Medical times Branch daily as needed for Pain (scale 4-6). naproxen 2-0 Yes [id number] 500mg Take 1 U nivers (NAPROSYN) 3-12 tablet by ity of 500 mg 00:00: mouth 2 [place] tablet 00 (two) Medical times Branch daily with meals. methocarbam 2-0 Yes [id number] 500mg Take 1 Univers oL 500 mg 3-12 tablet by ity o f tablet 00:00: mouth 4 [place] 00 (four) Medical times Branch daily as needed for Pain (scale 4-6). naproxen 2-0 Yes [id number] 500mg Take 1 U nivers (NAPROSYN) 3-12 tablet by ity of 500 mg 00:00: mouth 2 [place] tablet 00 (two) Medical times Branch daily with meals. methocarbam 2021-0 Yes [id number] 500mg Take 1 Univers oL 500 mg 3-12 tablet by ity o f tablet 00:00: mouth 4 [place] 00 (four) Medical times Branch daily as needed for Pain (scale 4-6). naproxen 2-0 Yes [id number] 500mg Take 1 U nivers (NAPROSYN) 3-12 tablet by ity of 500 mg 00:00: mouth 2 [place] tablet 00 (two) Medical times Branch daily with meals. methocarbam 2-0 2023- No [id number] 500mg Take 1 Univers oL 500 mg 3-12 02-16 tablet by ity of tablet 00:00: 00:00 mouth 4 [place] 00 :00 (four) Medical times Branch daily as needed for Pain (scale 4-6). naproxen 2022-0 2023- No [id number] 500mg Take 1 Univers (NAPROSYN) 3-12 02-16 tablet by ity of 500 mg 00:00: 00:00 mouth 2 [place] tablet 00 :00 (two) Medical times Branch daily with meals. methocarbam 2022-0 2023- No [id number] 500mg Take 1 Univers oL 500 mg 3-12 02-16 tablet by ity of tablet 00:00: 00:00 mouth 4 [place] 00 :00 (four) Medical times Branch daily as needed for Pain (scale 4-6). naproxen 3- No [id number] 500mg Take 1 Univers (NAPROSYN) 3-12 02-16 tablet by ity of 500 mg 00:00: 00:00 mouth 2 [place] tablet 00 :00 (two) Medical times Branch daily with meals. metroNIDAZO 2021-0 Yes [id number] 500mg Take 1 Univers LE 500 mg 2-18 tablet by ity o f tablet 00:00: mouth [place] 00 every 12 Medical (twelve) Branch hours. metroNIDAZO 2021-0 Yes [id number] 500mg Take 1 Univers LE 500 mg 2-18 tablet by ity o f tablet 00:00: mouth [place] 00 every 12 Medical (twelve) Branch hours. metroNIDAZO 2021-0 Yes [id number] 500mg Take 1 Univers LE 500 mg 2-18 tablet by ity o f tablet 00:00: mouth [place] 00 every 12 Medical (twelve) Branch hours. metroNIDAZO 2021-0 Yes [id number] 500mg Take 1 Univers LE 500 mg 2-18 tablet by ity o f tablet 00:00: mouth [place] 00 every 12 Medical (twelve) Branch hours. metroNIDAZO 2021-0 Yes [id number] 500mg Take 1 Univers LE 500 mg 2-18 tablet by ity o f tablet 00:00: mouth [place] 00 every 12 Medical (twelve) Branch hours. metroNIDAZO 2021-0 Yes [id number] 500mg Take 1 Univers LE 500 mg 2-18 tablet by ity o f tablet 00:00: mouth [place] 00 every 12 Medical (twelve) Branch hours. metroNIDAZO 2021-0 Yes [id number] 500mg Take 1 Univers LE 500 mg 2-18 tablet by ity o f tablet 00:00: mouth [place] 00 every 12 Medical (twelve) Branch hours. metroNIDAZO 2021-0 Yes [id number] 500mg Take 1 Univers LE 500 mg 2-18 tablet by ity o f tablet 00:00: mouth [place] 00 every 12 Medical (twelve) Branch hours. metroNIDAZO 2021-0 Yes [id number] 500mg Take 1 [facility] 500 mg 2-18 tablet by ity o f tablet 00:00: mouth [place] 00 every 12 Medical (twelve) Branch hours. metroNIDAZO 2021-0 Yes [id number] 500mg Take 1 [facility] LE 500 mg 2-18 tablet by ity o f tablet 00:00: mouth [place] 00 every 12 Medical (twelve) Branch hours. metroNIDAZO 2-0 Yes [id number] 500mg Take 1 [facility] LE 500 mg 2-18 tablet by ity o f tablet 00:00: mouth [place] 00 every 12 Medical (twelve) Branch hours. metroNIDAZO 2021-0 Yes [id number] 500mg Take 1 [facility] LE 500 mg 2-18 tablet by ity o f tablet 00:00: mouth [place] 00 every 12 Medical (twelve) Branch hours. metroNIDAZO 2021-0 Yes [id number] 500mg Take 1 [facility] LE 500 mg 2-18 tablet by ity o f tablet 00:00: mouth [place] 00 every 12 Medical (twelve) Branch hours. metroNIDAZO 2021-0 Yes [id number] 500mg Take 1 [facility] LE 500 mg 2-18 tablet by ity o f tablet 00:00: mouth [place] 00 every 12 Medical (twelve) Branch hours. metroNIDAZO 2021-0 3- No [id number] 500mg Take 1 [facility] LE 500 mg 2-18 02-16 tablet by ity of tablet 00:00: 00:00 mouth [place] 00 :00 every 12 Medical (twelve) Branch hours. metroNIDAZO 2021-0 3- No [id number] 500mg Take 1 [facility] LE 500 mg 2-18 02-16 tablet by ity of tablet 00:00: 00:00 mouth [place] 00 :00 every 12 Medical (twelve) Branch hours. Cetirizine Yes 1{capsu Take 1 Un den[facility] 10 mg 2-16 le} capsule by ity of capsule 14:23: mouth [place] 17 daily. Medical Branch Cetirizine Yes 1{capsu Take 1 [facility] denise 10 mg 2-16 le} capsule by ity of capsule 14:23: mouth [place] 17 daily. Medical Branch Cetirizine Yes 1{capsu Take 1 Un denise 10 mg 2-16 le} capsule by ity of capsule 14:23: mouth [place] 17 daily. Medical Branch QUEtiapine Yes 1{tbl} Take 1 [facility] vers 100 mg 2-16 tablet by ity of tablet 14:23: mouth [place] 17 every Medical morning. Branch Cetirizine Yes 1{capsu Take 1 Un denise 10 mg 2-16 le} capsule by ity of capsule 14:23: mouth [place] 17 daily. Medical Branch QUEtiapine Yes 1{tbl} Take 1 [facility] vers 100 mg 2-16 tablet by ity of tablet 14:23: mouth [place] 17 every Medical morning. Branch Cetirizine Yes 1{capsu Take 1 Un denise 10 mg 2-16 le} capsule by ity of capsule 14:23: mouth [place] 17 daily. Medical Branch QUEtiapine Yes 1{tbl} Take 1 [facility] vers 100 mg 2-16 tablet by ity of tablet 14:23: mouth [place] 17 every Medical morning. Branch Cetirizine Yes 1{capsu Take 1 Un denise 10 mg 2-16 le} capsule by ity of capsule 14:23: mouth [place] 17 daily. Medical Branch QUEtiapine Yes 1{tbl} Take 1 [facility] vers 100 mg 2-16 tablet by ity of tablet 14:23: mouth [place] 17 every Medical morning. Branch Cetirizine Yes 1{capsu Take 1 Un den[facility] 10 mg 2-16 le} capsule by ity of capsule 14:23: mouth [place] 17 daily. Medical Branch QUEtiapine Yes 1{tbl} Take 1 [facility] vers 100 mg 2-16 tablet by ity of tablet 14:23: mouth [place] 17 every Medical morning. Branch Cetirizine Yes 1{capsu Take 1 [facility] den[facility] 10 mg 2-16 le} capsule by ity of capsule 14:23: mouth [place] 17 daily. Medical Branch QUEtiapine Yes 1{tbl} Take 1 [facility] vers 100 mg 2-16 tablet by ity of tablet 14:23: mouth [place] 17 every Medical morning. Branch Cetirizine Yes 1{capsu Take 1 [facility] den[facility] 10 mg 2-16 le} capsule by ity of capsule 14:23: mouth [place] 17 daily. Medical Branch QUEtiapine Yes 1{tbl} Take 1 [facility] vers 100 mg 2-16 tablet by ity of tablet 14:23: mouth [place] 17 every Medical morning. Branch Cetirizine Yes 1{capsu Take 1 Un denise 10 mg 2-16 le} capsule by ity of capsule 14:23: mouth [place] 17 daily. Medical Branch QUEtiapine Yes 1{tbl} Take 1 [facility] vers 100 mg 2-16 tablet by ity of tablet 14:23: mouth [place] 17 every Medical morning. Branch Cetirizine Yes 1{capsu Take 1 [facility] 10 mg 2-16 le} capsule by ity of capsule 14:23: mouth [place] 17 daily. Medical Branch QUEtiapine Yes 1{tbl} Take 1 [facility] vers 100 mg 2-16 tablet by ity of tablet 14:23: mouth [place] 17 every Medical morning. Branch Cetirizine Yes 1{capsu Take 1 [facility] 10 mg 2-16 le} capsule by ity of capsule 14:23: mouth [place] 17 daily. Medical Branch QUEtiapine Yes 1{tbl} Take 1 [facility] vers 100 mg 2-16 tablet by ity of tablet 14:23: mouth [place] 17 every Medical morning. Branch Cetirizine Yes 1{capsu Take 1 Un den[facility] 10 mg 2-16 le} capsule by ity of capsule 14:23: mouth [place] 17 daily. Medical Branch QUEtiapine Yes 1{tbl} Take 1 [facility] vers 100 mg 2-16 tablet by ity of tablet 14:23: mouth [place] 17 every Medical morning. Branch Cetirizine Yes 1{capsu Take 1 Un den[facility] 10 mg 2-16 le} capsule by ity of capsule 14:23: mouth [place] 17 daily. Medical Branch QUEtiapine Yes 1{tbl} Take 1 [facility] vers 100 mg 2-16 tablet by ity of tablet 14:23: mouth [place] 17 every Medical morning. Branch Cetirizine Yes 1{capsu Take 1 Un denise 10 mg 2-16 le} capsule by ity of capsule 14:23: mouth [place] 17 daily. Medical Branch QUEtiapine Yes 1{tbl} Take 1 [facility] vers 100 mg 2-16 tablet by ity of tablet 14:23: mouth [place] 17 every Medical morning. Branch Cetirizine Yes 1{capsu Take 1 Un den[facility] 10 mg 2-16 le} capsule by ity of capsule 14:23: mouth [place] 17 daily. Medical Branch QUEtiapine Yes 1{tbl} Take 1 [facility] vers 100 mg 2-16 tablet by ity of tablet 14:23: mouth [place] 17 every Medical morning. Branch Cetirizine Yes 1{capsu Take 1 [facility] den[facility] 10 mg 2-16 le} capsule by ity of capsule 14:23: mouth [place] 17 daily. Medical Branch Cetirizine Yes 1{capsu Take 1 Un den[facility] 10 mg 2-16 le} capsule by ity of capsule 14:23: mouth [place] 17 daily. Medical Branch Cetirizine Yes 1{capsu Take 1 Un den[facility] 10 mg 2-16 le} capsule by ity of capsule 14:23: mouth [place] 17 daily. Medical Branch meloxicam Yes 1{capsu Take 1 [facility] vers submicroniz 2-15 le} capsule by it y of ed 10 mg 15:57: mouth [place] Cap 07 daily. Medical Branch meloxicam Yes 1{capsu Take 1 [facility] vers submicroniz 2-15 le} capsule by it y of ed 10 mg 15:57: mouth [place] Cap 07 daily. Medical Branch meloxicam Yes 1{capsu Take 1 [facility] vers submicroniz 2-15 le} capsule by it y of ed 10 mg 15:57: mouth [place] Cap 07 daily. Medical Branch meloxicam Yes 1{capsu Take 1 [facility] vers submicroniz 2-15 le} capsule by it y of ed 10 mg 15:57: mouth [place] Cap 07 daily. Medical Branch meloxicam Yes 1{capsu Take 1 [facility] vers submicroniz 2-15 le} capsule by it y of ed 10 mg 15:57: mouth [place] Cap 07 daily. Medical Branch meloxicam Yes 1{capsu Take 1 [facility] vers submicroniz 2-15 le} capsule by it y of ed 10 mg 15:57: mouth [place] Cap 07 daily. Medical Branch meloxicam Yes 1{capsu Take 1 [facility] vers submicroniz 2-15 le} capsule by it y of ed 10 mg 15:57: mouth [place] Cap 07 daily. Medical Branch meloxicam Yes 1{capsu Take 1 [facility] vers submicroniz 2-15 le} capsule by it y of ed 10 mg 15:57: mouth [place] Cap 07 daily. Medical Branch meloxicam Yes 1{capsu Take 1 [facility] vers submicroniz 2-15 le} capsule by it y of ed 10 mg 15:57: mouth [place] Cap 07 daily. Medical Branch meloxicam Yes 1{capsu Take 1 [facility] vers submicroniz 2-15 le} capsule by it y of ed 10 mg 15:57: mouth [place] Cap 07 daily. Medical Branch meloxicam Yes 1{capsu Take 1 [facility] vers submicroniz 2-15 le} capsule by it y of ed 10 mg 15:57: mouth [place] Cap 07 daily. Medical Branch meloxicam Yes 1{capsu Take 1 [facility] vers submicroniz 2-15 le} capsule by it y of ed 10 mg 15:57: mouth [place] Cap 07 daily. Medical Branch meloxicam Yes 1{capsu Take 1 [facility] vers submicroniz 2-15 le} capsule by it y of ed 10 mg 15:57: mouth [place] Cap 07 daily. Medical Branch carvediloL 2020-05 Yes 6.25mg Take 6.25 [facility] 6.25 mg 2-06 mg by ity of tablet 00:00: mouth 2 (two) Medical times Branch daily. carvediloL 2020-05 Yes 6.25mg Take 6.25 [facility] 6.25 mg 2-06 mg by ity of tablet 00:00: mouth 2 (two) Medical times Branch daily. carvediloL 2020-05 Yes 6.25mg Take 6.25 [facility] 6.25 mg 2-06 mg by ity of tablet 00:00: mouth 2 00 (two) Medical times Branch daily. carvediloL 2020-05 Yes 6.25mg Take 6.25 [facility] 6.25 mg 2-06 mg by ity of tablet 00:00: mouth 2 [place] (two) Medical times Branch daily. carvediloL 2020-05 Yes 6.25mg Take 6.25 [facility] 6.25 mg 2-06 mg by ity of tablet 00:00: mouth [place] (two) Medical times Branch daily. carvediloL 2020-05 Yes 6.25mg Take 6.25 [facility] 6.25 mg 2-06 mg by ity of tablet 00:00: mouth [place] (two) Medical times Branch daily. carvediloL 2020-05 Yes 6.25mg Take 6.25 [facility] 6.25 mg 2-06 mg by ity of tablet 00:00: mouth [place] (two) Medical times Branch daily. carvediloL 2020-05 Yes 6.25mg Take 6.25 [facility] 6.25 mg 2-06 mg by ity of tablet 00:00: mouth [place] (two) Medical times Branch daily. carvediloL 2020-05 Yes 6.25mg Take 6.25 [facility] 6.25 mg 2-06 mg by ity of tablet 00:00: mouth [place] (two) Medical times Branch daily. carvediloL 2020-05 Yes 6.25mg Take 6.25 [facility] 6.25 mg 2-06 mg by ity of tablet 00:00: mouth [place] (two) Medical times Branch daily. carvediloL 2020-05 Yes 6.25mg Take 6.25 [facility] 6.25 mg 2-06 mg by ity of tablet 00:00: mouth [place] (two) Medical times Branch daily. carvediloL 2020-05 Yes 6.25mg Take 6.25 [facility] 6.25 mg 2-06 mg by ity of tablet 00:00: mouth [place] (two) Medical times Branch daily. carvediloL 2020-05 Yes 6.25mg Take 6.25 [facility] 6.25 mg 2-06 mg by ity of tablet 00:00: mouth [place] (two) Medical times Branch daily. carvediloL 2020-05 Yes 6.25mg Take 6.25 [facility] 6.25 mg 2-06 mg by ity of tablet 00:00: mouth [place] (two) Medical times Branch daily. carvediloL 2020-05- No 6.25mg Take 6.25 [facility] 6.25 mg 2-06 02-16 mg by ity of tablet 00:00: 00:00 mouth 2 [place] 00 :00 (two) Medical times Branch daily. carvediloL 2020-05- No 6.25mg Take 6.25 [facility] 6.25 mg 2-06 02-16 mg by ity of tablet 00:00: 00:00 mouth 00 :00 (two) Medical times Branch daily. orphenadrin 2020-05 Yes 100mg Take 100 U nivers e 100 mg SR 1-24 mg by ity of tablet 00:00: mouth (two) Medical times Branch daily. orphenadrin 2020-05 Yes 100mg Take 100 U nivers e 100 mg SR 1-24 mg by ity of tablet 00:00: mouth (two) Medical times Branch daily. orphenadrin 2020-05 Yes 100mg Take 100 U nivers e 100 mg SR 1-24 mg by ity of tablet 00:00: mouth [place] (two) Medical times Branch daily. orphenadrin 2020-05 Yes 100mg Take 100 U nivers e 100 mg SR 1-24 mg by ity of tablet 00:00: mouth (two) Medical times Branch daily. orphenadrin 2020-05 Yes 100mg Take 100 U nivers e 100 mg SR 1-24 mg by ity of tablet 00:00: mouth (two) Medical times Branch daily. orphenadrin 2020- Yes 100mg Take 100 U nivers e 100 mg SR 1-24 mg by ity of tablet 00:00: mouth (two) Medical times Branch daily. orphenadrin 2020- Yes 100mg Take 100 U nivers e 100 mg SR 1-24 mg by ity of tablet 00:00: mouth [place] (two) Medical times Branch daily. orphenadrin 2020-05 Yes 100mg Take 100 U nivers e 100 mg SR 1-24 mg by ity of tablet 00:00: mouth [place] (two) Medical times Branch daily. orphenadrin 2020- Yes 100mg Take 100 U nivers e 100 mg SR 1-24 mg by ity of tablet 00:00: mouth (two) Medical times Branch daily. orphenadrin 2020- Yes 100mg Take 100 U nivers e 100 mg SR 1-24 mg by ity of tablet 00:00: mouth 2 [place] 00 (two) Medical times Branch daily. orphenadrin 2020-05 Yes 100mg Take 100 U nivers e 100 mg SR 1-24 mg by ity of tablet 00:00: mouth 2 [place] 00 (two) Medical times Branch daily. orphenadrin 2020-05 Yes 100mg Take 100 U nivers e 100 mg SR 1-24 mg by ity of tablet 00:00: mouth 2 [place] 00 (two) Medical times Branch daily. orphenadrin 2020-05 Yes 100mg Take 100 U nivers e 100 mg SR 1-24 mg by ity of tablet 00:00: mouth 2 [place] 00 (two) Medical times Branch daily. orphenadrin 2020-05 Yes 100mg Take 100 U nivers e 100 mg SR 1-24 mg by ity of tablet 00:00: mouth 2 [place] 00 (two) Medical times Branch daily. orphenadrin 2020-05- No 100mg Take 100 [facility] e 100 mg SR 1-24 02-16 mg by ity of tablet 00:00: 00:00 mouth 2 [place] 00 :00 (two) Medical times Branch daily. orphenadrin 2020-05- No 100mg Take 100 [facility] e 100 mg SR 1-24 02-16 mg by ity of tablet 00:00: 00:00 mouth 2 [place] 00 :00 (two) Medical times Branch daily. carvedilol 2020- Yes Take by [facility] ([facility]) 1-18 mouth 2 ity of 12.5 mg 08:16: (two) [place] tablet 26 times Medical daily with Branch meals. carvedilol 2020- Yes Take by [employer] [facility] ([facility]) 1-18 mouth 2 ity of 12.5 mg 08:16: (two) [place] tablet 26 times Medical daily with Branch meals. carvedilol 2020-1 Yes Take by [employer] [facility] ([facility]G) 1-18 mouth 2 ity of 12.5 mg 08:16: (two) [place] tablet 26 times Medical daily with Branch meals. carvedilol 2020-1 Yes Take by [employer] [facility] ([facility]G) 1-18 mouth 2 ity of 12.5 mg 08:16: (two) [place] tablet 26 times Medical daily with Branch meals. carvedilol 2020-1 Yes Take by [employer] [employer] (COREG) 1-18 mouth 2 ity of 12.5 mg 08:16: (two) [place] tablet 26 times Medical daily with Branch meals. carvedilol 2020- Yes Take by [facility] ers (COREG) 1-18 mouth 2 ity of 12.5 mg 08:16: (two) [place] tablet 26 times Medical daily with Branch meals. carvedilol 2020- Yes Take by [facility] ers (COREG) 1-18 mouth 2 ity of 12.5 mg 08:16: (two) [place] tablet 26 times Medical daily with Branch meals. carvedilol 2019- Yes Take by [facility] ers (COREG) 1-18 mouth 2 ity of 12.5 mg 08:16: (two) [place] tablet 26 times Medical daily with Branch meals. carvedilol 2019- Yes Take by [employer] [employer] (COREG) 1-18 mouth 2 ity of 12.5 mg 08:16: (two) [place] tablet 26 times Medical daily with Branch meals. carvedilol 2019- Yes Take by [facility] ers (COREG) 1-18 mouth 2 ity of 12.5 mg 08:16: (two) [place] tablet 26 times Medical daily with Branch meals. carvedilol 2019- Yes Take by [facility] ers (COREG) 1-18 mouth 2 ity of 12.5 mg 08:16: (two) [place] tablet 26 times Medical daily with Branch meals. carvedilol 2019- Yes Take by [facility] ers (COREG) 1-18 mouth 2 ity of 12.5 mg 08:16: (two) [place] tablet 26 times Medical daily with Branch meals. carvedilol 2019- Yes Take by [facility] ers (COREG) 1-18 mouth 2 ity of 12.5 mg 08:16: (two) [place] tablet 26 times Medical daily with Branch meals. carvedilol 2019- Yes Take by [facility] ers (COREG) 1-18 mouth 2 ity of 12.5 mg 08:16: (two) [place] tablet 26 times Medical daily with Branch meals. losartan 50 2019- Yes Univer s mg tablet 0-03 ity of 00:00: [place] 00 Medical Branch losartan 50 2019- Yes Univer s mg tablet 0-03 ity of 00:00: [place] 00 Medical Branch losartan 50 2019- Yes Univer s mg tablet 0-03 ity of 00:00: [place] 00 Medical Branch losartan 50 2019- Yes Univer s mg tablet 0-03 ity of 00:00: [place] [facility] losartan 50 2020-1 Yes Univer s mg tablet 0-03 ity of 00:00: [place] [facility] losartan 50 2020-1 Yes Univer s mg tablet 0-03 ity of 00:00: [place] [facility] losartan 50 2020-1 Yes Univer s mg tablet 0-03 ity of 00:00: [place] [facility] losartan 50 2020-1 Yes Univer s mg tablet 0-03 ity of 00:00: [place] [facility] losartan 50 2020-1 Yes Univer s mg tablet 0-03 ity of 00:00: [place] [facility] losartan 50 2020-1 Yes Univer s mg tablet 0-03 ity of 00:00: [place] [facility] losartan 50 2020- Yes Univer s mg tablet 0-03 ity of 00:00: [place] [facility] losartan 50 2020- Yes Univer s mg tablet 0-03 ity of 00:00: [place] [facility] losartan 50 2020- Yes Univer s mg tablet 0-03 ity of 00:00: [place] [facility] losartan 50 2020-1 Yes Univer s mg tablet 0-03 ity of 00:00: [place] [id number] Medical Branch losartan 50 2020-1 Yes Univer s mg tablet 0-03 ity of 00:00: [place] [facility] losartan 50 2020-1 Yes Univer s mg tablet 0-03 ity of 00:00: [place] [facility] losartan 50 2020-1 Yes Univer s mg tablet 0-03 ity of 00:00: [place] [facility] losartan 50 2020-1 Yes Univer s mg tablet 0-03 ity of 00:00: [place] [facility] losartan 50 2020-1 Yes Univer s mg tablet 0-03 ity of 00:00: [place] [facility] lamoTRIgine 2020- Yes TK 1 T PO U nivers 25 mg 0-02 D ity of tablet 00:00: [place] [facility] lamoTRIgine 2019- Yes TK 1 T PO U nivers 25 mg 0-02 D ity of tablet 00:00: [place] [facility] lamoTRIgine 2019-05 Yes TK 1 T PO U nivers 25 mg 0-02 D ity of tablet 00:00: [place] [facility] lamoTRIgine 2019- Yes TK 1 T PO U nivers 25 mg 0-02 D ity of tablet 00:00: [address] lamoTRIgine 2019-05 Yes TK 1 T PO U nivers 25 mg 0-02 D ity of tablet 00:00: [address] lamoTRIgine 2019-05 Yes TK 1 T PO U nivers 25 mg 0-02 D ity of tablet 00:00: [address] lamoTRIgine 2019-05 Yes TK 1 T PO U nivers 25 mg 0-02 D ity of tablet 00:00: [address] lamoTRIgine 2019-05 Yes TK 1 T PO U nivers 25 mg 0-02 D ity of tablet 00:00: [address] lamoTRIgine 2019-05 Yes TK 1 T PO U nivers 25 mg 0-02 D ity of tablet 00:00: [address] lamoTRIgine 2019-05 Yes TK 1 T PO U nivers 25 mg 0-02 D ity of tablet 00:00: [address] lamoTRIgine 2019-05 Yes TK 1 T PO U nivers 25 mg 0-02 D ity of tablet 00:00: [address] lamoTRIgine 2019-05 Yes TK 1 T PO U nivers 25 mg 0-02 D ity of tablet 00:00: [address] lamoTRIgine 2019-05 Yes TK 1 T PO U nivers 25 mg 0-02 D ity of tablet 00:00: [address] lamoTRIgine 2019-05 Yes TK 1 T PO U nivers 25 mg 0-02 D ity of tablet 00:00: [address] lamoTRIgine 2019-05 Yes TK 1 T PO U nivers 25 mg 0-02 D ity of tablet 00:00: [address] lamoTRIgine 2019-05 Yes TK 1 T PO U nivers 25 mg 0-02 D ity of tablet 00:00: [address] lamoTRIgine 2019-05 Yes TK 1 T PO U nivers 25 mg 0-02 D ity of tablet 00:00: [address] lamoTRIgine 2019-05 Yes TK 1 T PO U nivers 25 mg 0-02 D ity of tablet 00:00: [address] lamoTRIgine 2019-05 Yes TK 1 T PO U nivers 25 mg 0-02 D ity of tablet 00:00: [place] 00 Medical Branch ibuprofen 2020-0 Yes [id number] 600mg Take 1 [facility] 600 mg 7-08 tablet by ity of tablet 00:00: mouth [place] 00 every 6 Medical (six) Branch hours as needed for Pain (scale 4-6). ibuprofen 2020-0 Yes [id number] 600mg Take 1 [facility] 600 mg 7-08 tablet by ity of tablet 00:00: mouth [place] 00 every 6 Medical (six) Branch hours as needed for Pain (scale 4-6). ibuprofen 2020-0 Yes [id number] 600mg Take 1 [facility] 600 mg 7-08 tablet by ity of tablet 00:00: mouth [place] 00 every 6 Medical (six) Branch hours as needed for Pain (scale 4-6). ibuprofen 2020-0 Yes [id number] 600mg Take 1 [facility] 600 mg 7-08 tablet by ity of tablet 00:00: mouth [place] 00 every 6 Medical (six) Branch hours as needed for Pain (scale 4-6). ibuprofen 2020-0 Yes [id number] 600mg Take 1 [facility] 600 mg 7-08 tablet by ity of tablet 00:00: mouth [place] 00 every 6 Medical (six) Branch hours as needed for Pain (scale 4-6). ibuprofen 2020-0 Yes [id number] 600mg Take 1 [facility] 600 mg 7-08 tablet by ity of tablet 00:00: mouth [place] 00 every 6 Medical (six) Branch hours as needed for Pain (scale 4-6). ibuprofen 2020-0 Yes [id number] 600mg Take 1 [facility] 600 mg 7-08 tablet by ity of tablet 00:00: mouth [place] 00 every 6 Medical (six) Branch hours as needed for Pain (scale 4-6). ibuprofen 2020-0 Yes [id number] 600mg Take 1 [facility] 600 mg 7-08 tablet by ity of tablet 00:00: mouth [place] 00 every 6 Medical (six) Branch hours as needed for Pain (scale 4-6). ibuprofen 2020-0 Yes [id number] 600mg Take 1 [facility] 600 mg 7-08 tablet by ity of tablet 00:00: mouth [place] 00 every 6 Medical (six) Branch hours as needed for Pain (scale 4-6). ibuprofen 2020-0 Yes [id number] 600mg Take 1 [facility] 600 mg 7-08 tablet by ity of tablet 00:00: mouth [place] 00 every 6 Medical (six) Branch hours as needed for Pain (scale 4-6). ibuprofen 2020-0 Yes [id number] 600mg Take 1 [facility] 600 mg 7-08 tablet by ity of tablet 00:00: mouth [place] 00 every 6 Medical (six) Branch hours as needed for Pain (scale 4-6). ibuprofen 2020-0 Yes [id number] 600mg Take 1 [facility] 600 mg 7-08 tablet by ity of tablet 00:00: mouth [place] 00 every 6 Medical (six) Branch hours as needed for Pain (scale 4-6). ibuprofen 2020-0 Yes [id number] 600mg Take 1 [facility] 600 mg 7-08 tablet by ity of tablet 00:00: mouth [place] 00 every 6 Medical (six) Branch hours as needed for Pain (scale 4-6). ibuprofen 2020-0 Yes [id number] 600mg Take 1 [facility] 600 mg 7-08 tablet by ity of tablet 00:00: mouth [place] 00 every 6 Medical (six) Branch hours as needed for Pain (scale 4-6). ibuprofen 2020-0 3- No [id number] 600mg Take 1 [facility] 600 mg 7-08 02-16 tablet by ity of tablet 00:00: 00:00 mouth [place] 00 :00 every 6 Medical (six) Branch hours as needed for Pain (scale 4-6). ibuprofen 2020-0 3- No [id number] 600mg Take 1 [facility] 600 mg 7-08 02-16 tablet by ity of tablet 00:00: 00:00 mouth [place] 00 :00 every 6 Medical (six) Branch hours as needed for Pain (scale 4-6). Immunizations Ordered Filled Immunization Date Status Comments [facility] e Immunization Name Name [facility] 2021-07-03 Completed [facility] of 00:00:00 [facility] TD 2021-07-03 Completed University of 00:00:00 [facility] TDAP 2021-07-03 Completed University of 00:00:00 [facility] TDAP 2021-07-03 Completed University of 00:00:00 [facility] TDAP 2021-07-03 Completed University of 00:00:00 [facility] TDAP 2021-07-03 Completed University of 00:00:00 [facility] TDAP 2021-07-03 Completed University of 00:00:00 [facility] TDAP 2021-07-03 Completed University of 00:00:00 [facility] TDAP 2021-07-03 Completed University of 00:00:00 [facility] TDAP 2021-07-03 Completed University of 00:00:00 [place] [facility] TDAP 2021-07-03 Completed [facility] of 00:00:00 [facility] TDAP 2021-07-03 Completed University of 00:00:00 [facility] TDAP 2021-07-03 Completed University of 00:00:00 [place] [facility] TDAP 2021-07-03 Completed [facility] of 00:00:00 [place] [facility] TDAP 2021-07-03 Completed [facility] of 00:00:00 [facility] TDAP 2021-07-03 Completed University of 00:00:00 [facility] TDAP 2021-07-03 Completed University of 00:00:00 [facility] TDAP 2021-07-03 Completed University of 00:00:00 [facility] TDAP 2021-07-03 Completed University of 00:00:00 [facility] TD, NOS 2011-05-18 Completed University of 00:00:00 [facility] TD, NOS 2011-05-18 Completed University of 00:00:00 [facility] TD, NOS 2011-05-18 Completed University of 00:00:00 [facility] Td 2011-05-18 Completed University of 00:00:00 [facility] Td 2011-05-18 Completed University of 00:00:00 [place] [facility] Td 2011-05-18 Completed [facility] of 00:00:00 [place] [facility] Td 2011-05-18 Completed University of 00:00:00 [place] [facility] Td 2011-05-18 Completed [facility] of 00:00:00 [place] [facility] Td 2011-05-18 Completed [facility] of 00:00:00 [place] [facility] Td 2011-05-18 Completed [facility] of 00:00:00 [place] [facility] Td 2011-05-18 Completed [facility] of 00:00:00 [place] [facility] Td 2011-05-18 Completed [facility] of 00:00:00 [place] [facility] Td 2011-05-18 Completed [facility] of 00:00:00 [place] [facility] Td 2011-05-18 Completed [facility] of 00:00:00 [place] [facility] Td 2011-05-18 Completed [facility] of 00:00:00 [place] [facility] Td 2011-05-18 Completed University of 00:00:00 [facility] TD, NOS 2011-05-18 Completed [facility] of 00:00:00 [facility] TD, NOS 2011-05-18 Completed [facility] of 00:00:00 [facility] TD, NOS 2011-05-18 Completed University of 00:00:00 [facility] Vital Signs Vital Name Observation Time Observation Value Comments Source Systolic blood 2022-11-24 15:45:00 169 mm[Hg] Univer sity of pressure [facility] Diastolic blood 2022-11-24 15:45:00 86 mm[Hg] Unive rsity of pressure [facility] Heart rate 2022-11-24 15:45:00 95 /min Universi ty of [facility] Body temperature 2022-11-24 15:45:00 37 [place] [facility] ersity of [facility] Respiratory rate 2022-11-24 15:45:00 18 /min Univ ersity of [facility] Body height 2022-11-24 15:45:00 160 cm Universi ty of [facility] Body weight 2022-11-24 15:45:00 171.369 kg [facility] [place] BMI 2022-11-24 15:45:00 66.92 kg/m2 [facility] of [facility] Oxygen saturation in 2022-11-24 15:45:00 96 /min [facility] Arterial blood by [facility] Pulse oximetry Branch Systolic blood 2022-07-03 15:05:00 144 mm[Hg] Univer sity of pressure [facility] Diastolic blood 2022-07-03 15:05:00 91 mm[Hg] Unive rsity of pressure [facility] Heart rate 2022-07-03 14:53:00 80 /min [facility] [place] Body temperature 2022-07-03 14:53:00 36.78 Elizabeth Univ ersity of [facility] Respiratory rate 2022-07-03 14:53:00 18 /min Univ ersity of [facility] Body height 2022-07-03 14:53:00 162.6 cm [facility] [place] Body weight 2022-07-03 14:53:00 167.831 kg Universi ty of [facility] BMI 2022-07-03 14:53:00 63.51 kg/m2 [facility] Respiratory rate 2022-03-12 16:00:00 18 /min [facility] Systolic blood 2022-03-12 15:50:00 151 mm[Hg] [facility]iver [facility] Diastolic blood 2022-03-12 15:50:00 85 mm[Hg] Unive [facility]ity [facility] Heart rate 2022-03-12 14:42:00 79 /min [facility] Body height 2022-03-12 14:42:00 162.6 cm [facility] Body weight 2022-03-12 14:42:00 167.831 kg [facility] BMI 2022-03-12 14:42:00 63.51 kg/m2 [facility] Oxygen saturation in 2022-03-12 14:42:00 99 /min University of Arterial blood by [facility] orly Pulse oximetry Branch Systolic blood 2022-02-25 18:10:00 138 mm[Hg] Univer [facility]ity [facility] Diastolic blood 2022-02-25 18:10:00 82 mm[Hg] Unive [facility]ity of [facility] Heart rate 2022-02-25 18:10:00 96 /min [facility] Respiratory rate 2022-02-25 18:10:00 16 /min [facility] Body height 2022-02-25 18:10:00 162.6 cm [facility] Body weight 2022-02-25 18:10:00 167.831 kg [facility] BMI 2022-02-25 18:10:00 63.51 kg/m2 [facility] Oxygen saturation in 2022-02-25 18:10:00 90 /min [facility] P[facility] oxim[facility] Body height 2022-02-04 16:18:00 162.6 cm [facility] Body weight 2022-02-04 16:18:00 167.786 kg [facility] BMI 2022-02-04 16:18:00 63.49 kg/m2 [facility] Systolic blood 2021-12-03 16:12:00 168 mm[Hg] [facility]iver [facility] Diastolic blood 2021-12-03 16:12:00 95 mm[Hg] [facility] rsity of pressure [facility] Heart rate 2021-12-03 16:11:00 80 /min [facility] Respiratory rate 2021-12-03 16:11:00 16 /min [facility] Body height 2021-12-03 16:11:00 162.6 cm [facility] Body weight 2021-12-03 16:11:00 165.109 kg [facility] BMI 2021-12-03 16:11:00 62.48 kg/m2 [facility] Oxygen saturation in 2021-12-03 16:11:00 99 /min [facility] Arterial blood by [facility] Pulse oximetry Branch Procedures Procedure Date / Time Performed Performing Clinician Esau ramirez XR KNEE 3 VW RIGHT 2022-11-24 17:14:17 Jose Frances [facility] CONSENT/REFUSAL FOR 2022-11-24 15:39:23 Doctor Unassigned, No Un [facility] DIAGNOSIS AND Name [facility] TREATMENT FL TIME OR 2022-03-12 15:44:57 Uriah Calhoun [facility] (NON-REPORTABLE) [facility] MR LUMBAR SPINE WO 2021-12-20 18:50:28 Subha Downey [facility] Encounters Start End Encounter Admission Attending Care Care Encounter Source Date/Time Date/Time Type Type Clinicians Facility Department ID 2021-03-18 Emergency [facility] [id number] Univers 11:19:41 [facility] 2021-03-15 Emergency [facility] [id number] Univers 05:30:29 [facility] 2023-07-06 2023-07-06 Outpatient R CHAI PANDYA [facility] B [id number] Univers 10:00:00 10:00:00 CHAI PANDYA [facility] 2023-07-06 2023-07-06 Outpatient R RAIZA [facility] [id number] Univers 09:00:00 09:00:00 MARIELA [facility] 2022-11-24 2022-11-24 Emergency X JUAN DANIEL [facility] ERT [id number] Univers 10:47:00 12:54:00 JOSE [facility] 2022-11-24 2022-11-24 Emergency [facility] 1.2.672.029 [id number] Univers 10:47:00 12:54:00 Jose DEE 350.1.13.10 i [place] [id number] [facility] [address] [place] 2022-09-05 2022-09-05 [facility] [id number] Univers 00:00:00 00:00:00 [facility]22-07-07 2022-07-07 Telephone [facility] 1.2.840.11 [id number] [facility] 00:00:00 00:00:00 Chai TRAN 350.1.13.10 it y of [place] [facility] [id number] [facility] [address] [place] 2022-07-03 2022-07-03 Rn Post Partum 2, Adc Lab [facility] 1.2.840.114 [id number] Univers 10:15:00 10:30:00 Visit Mariela Eastman 350.1.13.10 ity [facility] [place] [id number] Ok dical NAL 353 [facility] 2022-07-03 2022-07-03 Outpatient R RAIZA [facility] [id number] Univers 09:00:00 10:01:35 MARIELA [facility] 2022-07-03 2022-07-03 [facility] 1.2.012.854 [id number] Univers 09:00:00 10:01:35 Visit Mariela DEE 350.1.13.10 i ty [facility] 4[place] [id number] Ok dical NAL 134 [facility] 2022-06-03 2022-06-03 Outpatient R XI [facility] [id number] Univers 12:30:00 12:30:00 EMMANUEL reid [facility] 2022-03-12 2022-03-12 [facility] RAD [id number] Univers 09:52:26 23:59:00 URIAH reid [facility] 2022-03-12 2022-03-12 [facility] 1.2.840.114 [id number] Univers 09:52:26 23:59:00 Encounter Uriah Hernandez MULTISPEC 350.1.13.10 [place] [id number] [facility] [place] [address] [place] [facility] 2022-03-12 2022-03-12 Office [facility] 1.2.840.114 [id number] Univers 10:30:00 11:00:00 Visit Uriah Hernandez MULTISPEC 350.1.13.10 [place] [id number] [facility] [place] [address] [place] [facility] 2022-03-07 2022-03-07 Telephone [facility] 1.2.014.502 [id number] Univers 00:00:00 00:00:00 Uriah Hernandez MULTISPEC 350.1.13.10 [place] [id number] [facility] [place] [address] [place] [facility] 2022-02-25 2022-02-25 Outpatient R RUSTY, [facility] [id number] Univers 12:30:00 13:52:54 ATTENDING ity [facility] 2022-02-25 2022-02-25 Office Smita Gruber [facility] 1.2.840.114 [id number] Univers 12:30:00 13:52:54 Visit Unknown, Attending MULTISPEC 350.1.13. 10 [place] [id number] [facility] [place] [address] [place] [facility] 2022-02-04 2022-02-04 Outpatient R SHAYAN [facility] [id number] Univers 11:00:00 11:25:35 SUBHA ity [facility] 2022-02-04 2022-02-04 Office [facility] 1.2.332.068 [id number] Univers 11:00:00 11:25:35 Visit Subha Thompson HEALTH 350.1.13.10 [place] [id number] [address] OFFICE BUILDING 2022-02-03 2022-02-03 [facility] 1.2.117.339 [id number] Univers 00:00:00 00:00:00 Subha Thompson HEALTH 350.1.13.10 [place] [id number] [address] OFFICE BUILDING 2022-01-07 2022-01-07 Outpatient Wanda CALHOUN [facility] [id number] Univers 14:30:00 14:30:00 URIAH [facility] 2022-01-07 2022-01-07 [facility] 1.2.632.083 [id number] Univers 00:00:00 00:00:00 Subha Thompson HEALTH 350.1.13.10 [place] [id number] [address] OFFICE BUILDING 2021-12-20 2021-12-20 [facility] [id number] Univers 13:13:25 23:59:00 SUBHA [facility] 2021-12-20 2021-12-20 [facility] 1.2.840.114 [id number] Univers 13:13:25 23:59:00 Encounter Subha Thompson HEALTH 350.1.13.10 [place] [id number] [facility] [address] ([facility]) 2021-12-03 2021-12-03 Outpatient [facility] [id number] Univers 11:30:00 11:55:52 SUBHA [facility] 2021-12-03 2021-12-03 Office [facility] 1.2.151.519 [id number] Univers 11:30:00 11:55:52 Visit Subha Thompson HEALTH 350.1.13.10 [place] EZEL [id number] [facility] [address] [place] OFFICE BUILDING 2021-10-04 2021-10-04 Orders Doctor BRINDA 1.2.840.114 [id number] Univers 00:00:00 00:00:00 Only Unassigned, RENATE 350.1.13.10 ity of [place] [facility] 4.2.7.2.686 Alexy as [id number] [address] 2021-09-04 2021-09-04 [facility] [id number] Univers 08:03:23 23:59:00 MARIELA franklin [facility] 2021-09-04 2021-09-04 [facility] 1.2.840.114 [id number] Univers 08:03:23 23:59:00 Encounter Mariela DEE 350.1.13.10 ity of [place] 4.2.7.2.686 [facility] [id number] [facility] [address] [place] 2021-09-04 2021-09-04 Orders Doctor BRINDA 1.2.840.114 [id number] Univers 00:00:00 00:00:00 Only Unassigned, RENATE 350.1.13.10 ity of [place] [facility] 4.2.7.2.686 Alexy as [id number] [address] 2021-07-27 2021-07-27 Emergency X [facility] ERT [id number] Univers 11:59:00 14:01:00 LD dontey [facility] 2021-07-27 2021-07-27 Emergency [facility] 1.2.327.603 [id number] Univers 11:59:00 14:01:00 Ld DEE 350.1.13.10 i ty [facility] 4.2.7.2.686 [facility] [id number] [facility] [address] [place] 2021-07-27 2021-07-27 Orders Doctor BRINDA 1.2.840.114 [id number] Univers 00:00:00 00:00:00 Only Unassigned, RENATE 350.1.13.10 ity of [place] [facility] 4.2.7.2.686 Alexy as [id number] [address] 2021-07-05 2021-07-05 Case Gavi [facility] 1.2.840.114 [id number] Univers 00:00:00 00:00:00 Management Meera Polanco LEILA 350.1.13.10 ity of [facility] [place] [id number] Ok dical [facility] 134 [facility] 2021-07-03 2021-07-03 Outpatient Wanda EASTMAN [facility] [id number] Univers 15:00:00 15:00:00 MARIELA reid [facility] 2021-07-03 2021-07-03 Rn Post Partum 2, Adc Lab [facility] 1.2.840.114 [id number] Univers 15:00:00 15:00:00 Visit Mariela Eastman 350.1.13.10 ity [facility] [place] [id number] Ok dical [facility] 353 [facility] 2021-07-03 2021-07-03 Office Raiza [facility] 1.2.476.737 [id number] Univers 14:00:00 14:44:50 Visit Mariela DEE 350.1.13.10 i ty [place] [id number] Ok dical [facility] 134 [facility] 2021-07-03 2021-07-03 Outpatient Wanda EASTMAN [facility] [id number] Univers 14:00:00 14:44:50 MARIELA reid [facility] 2021-05-22 2021-05-22 Outpatient Wanda EASTMAN [facility] [id number] Univers 15:00:00 15:00:00 MARIELA reid [facility] 2021-04-04 2021-04-04 Outpatient Wanda EASTMAN [facility] [id number] Univers 08:00:00 08:00:00 MARIELA reid [facility] 2020-12-12 2020-12-12 [facility] 1.2.840.114 [id number] 08:14:00 09:21:00 [place] 350.1.13.10 [place] 4.2.7.2.686 [place] [id number] 2020-12-12 2020-12-12 Emergency [facility] 1.2.840.114 [id number] [facility] 08:14:00 09:21:00 [place] Dee 350.1.13.10 ity [facility] 4.2.7.2.686 [facility] [id number] [place] 388944 [place] 2020-11-16 2020-11-16 Outpatient R ISRRAEL RIOS [facility] [id number] Univers 19:30:00 19:30:00 [facility]EL [facility] 2020-11-16 2020-11-16 Rn Post Partum 1, [facility] 1.2.840.114 [id number] 14:47:18 17:17:18 Visit Sleep Lab Leila 350.1.13.10 Bed [place] [address] [place] [address] [id number] 2020-11-16 2020-11-16 Rn Post Partum 1, [facility] Bed [facility] 1. 2.840.114 [id number] [facility] 14:47:18 17:17:18 Visit Isrrael Rios 350.1.13. 10 ity [facility] 4.2.7.2.686 [facility] [id number] [facility] [address] 2020-11-14 2020-11-14 Outpatient R [facility] [id number] Univers 10:00:00 10:00:00 [facility] 2020-11-14 2020-11-14 Laboratory Only, [facility] 1.2.840.114 [id number] 09:38:29 09:53:29 Only Test Leila 350.1.13.[address] [place] [address] [place] [address] [id number] [id number] 2020-11-14 2020-11-14 Laboratory Only, [facility] Test [facility] 1.2.840. 114 [id number] Univers 09:38:29 09:53:29 Only Neal Kaur 350.1.13.10 ity of [place] [id number] [facility] [address] 2020-11-14 2020-11-14 Orders Doctor PARRY 1.2.840.114 [id number] Univers 00:00:00 00:00:00 Only Unassigned, RENATE 350.1.13.10 ity of [place] [facility] 4.2.7.2.686 Alexy as [id number] [facility] [address] 2020-11-14 2020-11-14 Orders Doctor PARRY 1.2.840.114 [id number] 00:00:00 00:00:00 Only Unassigned, RENATE 350.1.13.10 [place] [facility] 4.2.7.2.686 [id number] [id number] 2020-08-02 2020-08-02 Patient Damien [facility] 1.2.840.114 [id number] 00:00:00 00:00:00 Outreach Cornelio PRIMARY 350.1.13.10 [facility] 4.2.7.2.686 PAVILLION [id number] 2020-08-02 2020-08-02 Patient Damien [facility] 1.2.840.114 [id number] Univers 00:00:00 00:00:00 Outreach Cornelio PRIMARY 350.1.13.10 i ty of [facility] [place]2.7.2.[place] [id number] Ok dical [address] 2020-07-26 2020-07-26 Outside [facility] [id number] [facility] 00:00:00 00:00:00 Orders Nuha Carter [facility] 2020-07-16 2020-07-16 Outpatient R [facility] [id number] Univers 10:00:00 10:00:00 ity of [facility] 2020-06-06 2020-06-06 [facility] Raiza [facility] 1.2.840.114 [id number] 09:59:36 23:59:00 Encounter Mariela Dee 350.1.13.10 [place] 4.2.7.2.686 [place] [id number] 2020-06-06 2020-06-06 [facility] 1.2.840.114 [id number] Univers 09:59:36 23:59:00 Encounter Mariela Leila 350.1.13.10 ity [facility] 4.2.7.2.686 [facility] [id number] [facility] [address] [place] 2020-06-06 2020-06-06 [facility] [id number] Univers 00:00:00 00:00:00 [facility] 2020-06-06 2020-06-06 Orders Doctor BRINDA 1.2.840.114 [id number] 00:00:00 00:00:00 Only Unassigned, RENATE 350.1.13.10 [place] [facility] 4.2.7.2.686 [id number] [id number] 2020-06-06 2020-06-06 Orders Doctor BRINDA 1.2.840.114 [id number] Univers 00:00:00 00:00:00 Only Unassigned, RENATE 350.1.13.10 ity [place] [facility] 4.2.7.2.686 [facility] [id number] [facility] [address] 2020-04-26 2020-04-26 Outpatient [facility] [id number] Univers 00:00:00 00:00:00 [facility] 2020-04-17 2020-04-17 [facility] 1.2.405.235 [id number] 00:00:00 00:00:00 Management Mariela Dee 350.1.13.10 [place] 4.2.7.2.686 Professio [id number] [address] 2020-04-17 2020-04-17 Telephone Jazmyn Stevens [facility] 1.2.840.114 [id number] 00:00:00 00:00:00 Erik Dee 350.1.13.10 [place] 4.2.7.2.686 Professio [id number] [address] 2020-04-17 2020-04-17 Telephone Jazmyn Stevens [facility] 1.2.840.114 [id number] 00:00:00 00:00:00 Erik Dee 350.1.13.10 [place] 4.2.7.2.686 Professio [id number] [address] 2020-04-17 2020-04-17 Case Raiza [facility] 1.2.828.143 [id number] Univers 00:00:00 00:00:00 Management Mariela Leila 350.1.13.10 ity of [place] [id number] [address] 2020-04-17 2020-04-17 Telephone Jazmyn Stevens [facility] 1.2.840.114 [id number] Univers 00:00:00 00:00:00 Cam Leila 350.1.13.10 i ty of [place] [id number] [address] 2020-04-17 2020-04-17 Telephone Jazmyn Stevens [facility] 1.2.840.114 [id number] Univers 00:00:00 00:00:00 Erik Dee 350.1.13.10 i ty of [place] [id number] [address] 2020-04-04 2020-04-04 Office Raiza [facility] 1.2.935.355 [id number] [facility] 07:56:51 08:40:50 Visit Mariela Dee 350.1.13.10 i ty of [place] [id number] [address] 2020-04-04 2020-04-04 Outpatient R RAIZA [facility] [id number] [facility] 08:00:00 08:00:00 MARIELA reid [facility] 2020-04-04 2020-04-04 Orders Doctor PARRY 1.2.840.114 [id number] 00:00:00 00:00:00 Only Unassigned, RENATE 350.1.13.10 [place] [facility] 4.2.7.2.686 [id number] 009 2020-04-04 2020-04-04 Orders Doctor PARRY 1.2.840.114 [id number] Univers 00:00:00 00:00:00 Only Unassigned, RENATE 350.1.13.10 ity of [place] [facility] 4.2.7.2.686 Alexy as [id number] [address] 2020-01-01 2020-01-01 Telephone BRINDA Walsh 1.2.840.114 [id number] Univers 00:00:00 00:00:00 Ana Maria Donna HINESY 350.1.13.10 ity of HOSPITAL 4.2.7.2.686 Alexy as [id number] [address] 2020-01-01 2020-01-01 Letter BRINDA Guillen 1.2.840.114 [id number] Univers 00:00:00 00:00:00 (Out) Marisol RENATE 350.1.13.10 it y of HOSPITAL 4.2.7.2.686 Alexy as [id number] [address] 2019-12-31 2019-12-31 Laboratory Lab, Adc Fam Pob I [facility] 1.2. 840.114 [id number] Univers 13:33:57 13:53:57 Only AneJane ritchie 350.1.13.10 ity of [place] 4.2.7.2.686 Alexy as Professio [id number] Ok dical [facility] [address] [place] [address] 2019-12-31 2019-12-31 Outpatient R [facility] [id number] Univers 13:40:00 13:40:00 ity of [facility] 2019-11-28 2019-11-28 Telephone Fidelia Driver 1.2.840.114 [id number] Univers 00:00:00 00:00:00 Trinity DEWITT 350.1.13.10 it y of HOSPITAL 4.2.7.2.686 Alexy as [id number] [address] 2019-11-25 2019-11-25 Telephone Allyson Angelo 1.2.840.114 [id number] Univers 00:00:00 00:00:00 RENATE 350.1.13.10 it y of HOSPITAL 4.2.7.2.686 Alexy as [id number] [address] 2019-11-23 2019-11-23 Emergency [place], K [facility] 1.2.840.114 [id number] Univers 11:15:20 13:13:00 Trinity Leila 350.1.13.10 i ty of [place] 4.2.7.2.686 [facility] [id number] [address] 2019-11-23 2019-11-23 Orders Doctor BRINDA 1.2.840.114 [id number] Univers 00:00:00 00:00:00 Only Unassigned, RENATE 350.1.13.10 ity of [place] [facility] 4.2.7.2.686 Alexy as [id number] [address] 2019-06-20 2019-06-21 Emergency [facility] 1.2.188.243 [id number] Univers 22:52:24 01:30:00 Stephane Leila 350.1.13.10 i ty of [place] 4.2.7.2.686 [facility] [id number] [address] 2019-06-20 2019-06-20 Orders Doctor BRINDA 1.2.840.114 [id number] Univers 00:00:00 00:00:00 Only Unassigned, RENATE 350.1.13.10 ity of [place] [facility] 4.2.7.2.686 Alexy as [id number] [address] 2018-12-30 2018-12-30 [facility] 1.2.354.694 [id number] Univers 09:27:58 10:19:00 Jose Dee 350.1.13.10 i ty of [place] 4.2.7.2.686 [facility] [id number] [address] 2018-12-30 2018-12-30 Orders Doctor PARRY 1.2.840.114 [id number] Univers 00:00:00 00:00:00 Only Unassigned, RENATE 350.1.13.10 ity of [place] [facility] 4.2.7.2.686 Alexy as [phone] [address] Results This patient has no known results.
--- NOTE | 2022-11-28 15:40 | RAD REPORT ---
EXAM DESCRIPTION: RAD - Knee Right 3 View - 11/28/2022 3:32 pm CLINICAL HISTORY: PAIN COMPARISON: Knee Right 3 View dated 12/17/2021 FINDINGS/IMPRESSION: No acute fracture. No malalignment. Mild to moderate medial compartment narrowi ng. Slight patellofemoral compartment spurring.
--- NOTE | 2022-11-28 16:48 | EDPHYS ---
Physician Documentation [facility] Name: Viola Spencer Age: 42 yrs Sex: Female : 1980 Arrival Date: 11/28/2022 Time: 15:07 Bed 9 Private MD: ED Physician Ignacio Pederson HPI: 11/28 16:34 This 42 yrs old Female presents to ER via Wheelchair with complaints of Knee jos Pain. 16:34 The patient presents with decreased range of motion, pain, that is acute. The jos complaints affect the right knee. Context: resulted from the patient falling, a mis-step. Onset: The symptoms/episode began/occurred just prior to arrival, this morning. Modifying factors: The symptoms are alleviated by nothing. remaining still, the symptoms are aggravated by movement. Associated signs and symptoms: The patient has no apparent associated signs or symptoms. Treatment prior to arrival includes: elevation of the extremity, icing the affected extremity. Severity of symptoms: At their worst the symptoms were moderate, in the emergency department the symptoms are unchanged. The patient has not experienced similar symptoms in the past. Historical: - Allergies: 15:13 Lisinopril; aa5 - PMHx: 15:13 Anxiety; Bipolar disorder; Hypertension; aa5 - PSHx: 15:13 tubal ligation; aa5 - Immunization history:: Adult Immunizations unknown. - Social history:: Smoking status: Patient denies any tobacco usage or history of. ROS: 16:36 Constitutional: Negative for fever, chills, and weight loss, Eyes: Negative for injury, jos pain, redness, and discharge, ENT: Negative for injury, pain, and discharge, Neck: Negative for injury, pain, and swelling, Cardiovascular: Negative for chest pain, palpitations, and edema, Respiratory: Negative for shortness of breath, cough, wheezing, and pleuritic chest pain, Abdomen/GI: Negative for abdominal pain, nausea, vomiting, diarrhea, and constipation, Back: Negative for injury and pain, : Negative for injury, bleeding, discharge, and swelling, Skin: Negative for injury, rash, and discoloration, Neuro: Negative for headache, weakness, numbness, tingling, and seizure, Psych: Negative for depression, anxiety, suicide ideation, homicidal ideation, and hallucinations, Allergy/Immunology: Negative for hives, rash, and allergies, Endocrine: Negative for neck swelling, polydipsia, polyuria, polyphagia, and marked weight changes, Hematologic/Lymphatic: Negative for swollen nodes, abnormal bleeding, and unusual bruising. 16:36 MS/extremity: Positive for decreased range of motion, pain, tenderness, of the right knee. Exam: 16:36 Constitutional: This is a well developed, well nourished patient who is awake, alert, jos and in no acute distress. Head/Face: Normocephalic, atraumatic. Eyes: Pupils equal round and reactive to light, extra-ocular motions intact. Lids and lashes normal. Conjunctiva and sclera are non-icteric and not injected. Cornea within normal limits. Periorbital areas with no swelling, redness, or edema. ENT: Nares patent. No nasal discharge, no septal abnormalities noted. Tympanic membranes are normal and external auditory canals are clear. Oropharynx with no redness, swelling, or masses, exudates, or evidence of obstruction, uvula midline. Mucous membranes moist. Neck: Trachea midline, no thyromegaly or masses palpated, and no cervical lymphadenopathy. Supple, full range of motion without nuchal rigidity, or vertebral point tenderness. No Meningismus. Chest/axilla: Normal chest wall appearance and motion. Nontender with no deformity. No lesions are appreciated. Cardiovascular: Regular rate and rhythm with a normal S1 and S2. No gallops, murmurs, or rubs. Normal PMI, no JVD. No pulse deficits. Respiratory: Lungs have equal breath sounds bilaterally, clear to auscultation and percussion. No rales, rhonchi or wheezes noted. No increased work of breathing, no retractions or nasal flaring. Abdomen/GI: Soft, non-tender, with normal bowel sounds. No distension or tympany. No guarding or rebound. No evidence of tenderness throughout. Back: No spinal tenderness. No costovertebral tenderness. Full range of motion. Skin: Warm, dry with normal turgor. Normal color with no rashes, no lesions, and no evidence of cellulitis. Neuro: Awake and alert, GCS 15, oriented to person, place, time, and situation. Cranial nerves II-XII grossly intact. Motor strength 5/5 in all extremities. Sensory grossly intact. Cerebellar exam normal. Normal gait. Psych: Awake, alert, with orientation to person, place and time. Behavior, mood, and affect are within normal limits. 16:36 Musculoskeletal/extremity: ROM: limited active range of motion, limited passive range of motion, limited active range of motion due to pain, limited passive range of motion due to pain, in the right knee, Circulation is intact in all extremities. the right knee Compartment Syndrome exam of affected extremity: is normal. Joints: All joints are normal except the right knee displays Weight bearing: is unable to bear weight, DVT Exam: negative Homans' sign noted on exam, no appreciated bluish discoloration, no erythema, no increased warmth, pain, swelling, tenderness. Vital Signs: 15:12 BP 172 / 71; Pulse 86; Resp 20 S; Temp 97.3(TE); Pulse Ox 98% on R/A; Weight 171.46 kg aa5 (R); Height 5 ft. 3 in. (R); 15:12 Body Mass Index 66.96 (171.46 kg, 160.02 cm) aa5 Procedures: 16:41 Splinting: Splint applied to right knee using knee immobilizer, applied by myself. jos nurse. Examined by me, post splint application: neurovascular intact, 2+ distal pulses palpable, brisk capillary refill noted, Patient tolerated well. MDM: 15:16 Patient medically screened. jos 16:42 Differential diagnosis: dislocation, closed fracture, contusion, abrasion, tendonitis. jos Data reviewed: vital signs, nurses notes, radiologic studies, plain films. Consideration of Admission/Observation Escalation of care including admission/observation considered. I considered the following discharge prescriptions or medication management in the emergency department Medications were administered in the Emergency Department. See MAR. Test considered but Not performed: CT: no ct right knee. Historians other than the Patient: Family Member: sister. Care significantly affected by the following chronic conditions: Hypertension, Obesity. 11/28 15:16 Order name: Knee Right 3 View XRAY [facility] 11/28 16:29 Order name: Knee Immobilizer; Complete Time: 17:00 jos Administered Medications: 16:52 Drug: [place] PO 10 mg-325 mg 1 tabs Route: PO; aa5 17:00 Follow up: Response: Medication administered at discharge. Disposition Summary: 11/28/22 16:47 Discharge Ordered Location: Home jos Problem: new jos Symptoms: have improved jos Condition: Stable jos Diagnosis - Contusion of right knee jos - Pain in right knee jos - Fall on same level, unspecified jos Followup: jos - With: Private Physician - When: 2 - 3 days - Reason: Recheck today's complaints, Continuance of care, Re-evaluation by your physician Followup: jos - With: Angel Petty MD - When: 2 - 3 days - Reason: Recheck today's complaints, Re-evaluation by your physician Discharge Instructions: - Discharge Summary Sheet jos - Joint Pain jos - Arthritis jos - How to Use a Knee Brace jos - Musculoskeletal Pain jos - Acute Knee Pain, Adult [facility] - How to Use Cold Therapy, Pmgw-se-Pebi jos - Arthritis, Bqwf-so-Vzva jos - Acute Knee Pain, Adult, Kpww-sk-Trsg [facility] Forms: - Medication Reconciliation Form [facility] - Thank You Letter [facility] - Antibiotic Education [facility] - Prescription Opioid Use [facility] - Patient Portal Instructions [facility] Prescriptions: - acetaminophen-codeine 300-30 mg Oral tablet - take 2 tablet by ORAL route every 6 hours as needed for pain; 20 tablet; [facility] Refills: 0, Product Selection Permitted - Diclofenac Sodium 75 mg Oral tablet,delayed release (DR/EC) - take 1 tablet by ORAL route 2 times per day; 20 tablet; Refills: 0, Product [facility] Selection Permitted Signatures: Dispatcher [employer] Ignacio Chen MD MD cha Calderon, Audri, RN RN aa5 Ailyn Gusman RN ss
--- NOTE | 2022-11-28 16:48 | ER ---
Nurse's Notes [facility] Name: Viola Spencer Age: 42 yrs Sex: Female : 1980 Arrival Date: 11/28/2022 Time: 15:07 Bed 9 Private MD: Diagnosis: Contusion of right knee;Pain in right knee;Fall on same level, unspecified Presentation: 11/28 15:12 Chief complaint: Patient states: "my knee has been hurting for a few months but I just aa5 fell at [facility] and it started hurting worse". Right knee pain. Coronavirus screen: At this time, the client does not indicate any symptoms associated with coronavirus-19. Ebola Screen: Patient denies travel to an Ebola-affected area in the 21 days before illness onset. Initial Sepsis Screen: Does the patient meet any 2 criteria? No. Patient's initial sepsis screen is negative. Does the patient have a suspected source of infection? No. Patient's initial sepsis screen is negative. Risk Assessment: Do you want to hurt yourself or someone else? Patient reports no desire to harm self or others. Onset of symptoms was November 28, 2022. 15:12 Acuity: KARRIE 4 aa5 15:12 Method Of Arrival: Wheelchair aa5 Historical: - Allergies: 15:13 Lisinopril; aa5 - PMHx: 15:13 Anxiety; Bipolar disorder; Hypertension; aa5 - PSHx: 15:13 tubal ligation; aa5 - Immunization history:: Adult Immunizations unknown. - Social history:: Smoking status: Patient denies any tobacco usage or history of. Screenin:03 [facility] ED Fall Risk Assessment (Adult) History of falling in the last 3 months, ss including since admission Yes- single mechanical fall (1 pt). Abuse screen: Denies threats or abuse. Denies injuries from another. Nutritional screening: No deficits noted. Tuberculosis screening: Never had TB. Assessment: 16:03 General: Appears in no apparent distress. Behavior is calm, cooperative. Pain: ss Complains of pain in R knee Pain currently is 10 out of 10 on a pain scale. Quality of pain is described as aching, tender, Pain began "going on months, worse today after a fall at [facility]" Is continuous. Neuro: Level of Consciousness is awake, alert, obeys commands, Oriented to person, place, time, situation. Respiratory: Airway is patent Respiratory effort is even, unlabored, Respiratory pattern is regular, symmetrical. GI: Patient currently denies nausea. Derm: Skin is intact, is healthy with good turgor, Skin is pink, warm \\T\\ dry. normal. Vital Signs: 15:12 BP 172 / 71; Pulse 86; Resp 20 S; Temp 97.3(TE); Pulse Ox 98% on R/A; Weight 171.46 kg aa5 (R); Height 5 ft. 3 in. (R); 15:12 Body Mass Index 66.96 (171.46 kg, 160.02 cm) aa5 ED Course: 15:08 Patient arrived in ED. ts1 15:12 Arm band placed on. aa5 15:13 Triage completed. [facility] 15:16 Ignacio Pederson MD is Attending Physician. [facility] 15:33 Knee Right 3 View XRAY In Process Unspecified. [facility] 16:03 Ailyn Gusman, RN is Primary Nurse. 16:44 Angel Petty MD is Referral Physician. [facility] 17:00 No provider procedures requiring assistance completed. Knee immobilizer applied on right knee. 17:06 Patient did not have IV access during this emergency room visit. Administered Medications: 16:52 Drug: [place] PO 10 mg-325 mg 1 tabs Route: PO; [facility] 17:00 Follow up: Response: Medication administered at discharge. Medication: 16:03 VIS not applicable for this client. Outcome: 16:47 Discharge ordered by . [facility] 17:00 Discharged to home via wheelchair. 17:00 Condition: good 17:00 Discharge instructions given to patient, family, Instructed on discharge instructions, follow up and referral plans. medication usage, Demonstrated understanding of instructions, follow-up care, medications. 17:07 Patient left the ED. Signatures: Dispatcher [employer] EDIA Ignacio Pederson MD MD cha Calderon, Audri, RN RN [facility] Ailyn Gumsan, ESTEE RN Marian Mina, LEIGHA PAS ts1
[2022-11-28] MEDS ORDERED: HYDROCODONE/APAP 10/325 TAB ONE (16:55)
[2022-11-28 18:37] VITALS: BP 172/71; TEMP 97.3; O2SAT 98
== END 2022-11-28 17:07 | disposition home or self-care (01) ==
LOC: ER 15:07
DX: S80.01XA Contusion of right knee, initial encounter (principal); W18.30XA Fall on same level, unspecified, initial encounter
CPT/HCPCS: 99284

== ENCOUNTER 2023-04-11 10:29 | Emergency (ER) | payer OTHER ==
--- OUTSIDE RECORDS SUMMARY | 2023-04-11 10:37 | XMS REPORT | Continuity of Care Document ---
:1980 Author Organization [facility] t Address [address] [facility] [address] [place] [address] Care Team Providers Name Role Phone ZAINAB DOWNEY Primary Care Physician Unavailable MEERA GATICA Attending Clinician Unavailable MYRA PANDYA Attending Clinician Unavailable MYRA PANDYA Attending Clinician Unavailable ARON EASTMAN Attending Clinician Unavailable AMINA GAMBOA Attending Clinician Unavailable JOSE FRANCES Attending Clinician Unavailable Jose Frances MD Attending Clinician Aron Eastman PA-C Attending Clinician 2, [facility] Attending Clinician Unavailable EMMANUEL LAYNE Attending Clinician Unavailable URIAH CALHOUN Attending Clinician Unavailable Uriah Calhoun MD Attending Clinician UNKNOWN, ATTENDING Attending Clinician Unavailable Smita Gruber MD Attending Clinician Unknown, Attending Attending Clinician Unavailable AMINATA DOWNEY Attending Clinician Unavailable Aminata Shen Attending Clinician Doctor Unassigned, [place] Attending Clinician Unavailable LD DIXON Attending Clinician Unavailable Ld Espinal Attending Clinician Meera Gatica MD Attending Clinician Seble Mars DO Attending Clinician ISRRAEL RIOS Attending Clinician Unavailable ISRRAEL RIOS Attending Clinician Unavailable 1, [facility] Sleep Lab Bed Attending Clinician Unavailable Isrrael Rios MD Attending Clinician Only, [facility] Test Attending Clinician Unavailable Neal Kaur MD Attending Clinician Cornelio Quezada DO Attending Clinician Brianda JD EDWARDS, TRESTLE BUILDER, Nuha Carter Attending Clinician Unavailable Jazmyn Stevens MD Attending Clinician Ana Maria Walsh Attending Clinician Wilmer FONTANEZ, Marisol Attending Clinician Unavailable Lab, [facility] Fam Pob I Attending Clinician Unavailable Jane Menendez Attending Clinician Fidelia Rosario Attending Clinician Allyson Angelo RN Attending Clinician Unavailable Stephane Woodard DO Attending Clinician JOSE FRANCES Admitting Clinician Unavailable AMINATA DOWNEY Admitting Clinician Unavailable ARON EASTMAN Admitting Clinician Unavailable LD DIXON Admitting Clinician Unavailable Payers Payer Name Policy Type Policy Number Effective Date Expiration Date [facility] [id number] 2018 CHOICE MEDICAID 00:00:00 Problems Condition Condition Condition Status Onset Resolution Last Treating Co mments Source Name Details Category Date Date Treatment Clinician Date Hypertensi Hypertensi Disease Active U nivers ve ve 3-17 ity of disorder disorder 00:00: [address] Branch Bipolar 1 Bipolar 1 Disease Active Uni vers disorder disorder 3-17 ity of 00:00: [address] Depression Depression Disease Active U nivers 3-17 ity of 00:00: [address] Branch Sleep-diso Sleep-diso Disease Active Overview : Univers rdered rdered 2-02 Formattin ity of breathing breathing 00:00: g of [place] 00 note Medical might be Branch different from the original. Last Assessmen t & Plan: Formattin g of this note might be different from the original. Patient had never done previousl y ordered sleep study. I advised her to call [facility] to schedule study and to have results faxed and emailed to use. I advised her to keep us updated regarding when she did the study and received the results. I also gave her the phone number for the [facility] and asked her to do the sleep study there if [facility] was unable to do it. Disorder Disorder [...] STD to STD 3-22 ity of 00:00: [place] 00 Medical Branch Elevated Elevated Disease Active [...] Date Date Clinician Lisinopr Propensi Active Cough 2015-0 Univer s il ty to 11-26 ity of adverse 00:00: [place] reaction 00 Medical s Branch LISINOPR DRUG Active COUGH 2014- Univers IL INGREDI 11-26 ity of 00:00: [place] 00 Medical [place] Social History Social Habit Start Date Stop Date Quantity Comments Source Gender identity Universit y of [facility] Sexual orientation [facility] Exposure to 2022-06-23 2022-07-03 Not sure [facility] SARS-CoV-2 (event) 00:00:00 08:49:00 [facility] History of Social 2021-07-03 2021-07-03 Univers ity of function 00:00:00 00:00:00 [facility] Alcohol intake 2021-07-03 2021-07-03 .24 /d University of 00:00:00 00:00:00 [facility] Tobacco use and 2019-04-04 2019-04-04 Smokeless Universit y of exposure 00:00:00 00:00:00 tobacco non-user [facility] History of tobacco 2019-01-06 Cigarette Smoker University of use 00:00:00 [facility] Sex Assigned At [birth year] [facility] 00:00:00 00:00:00 [facility] Smoking Status Start Date Stop Date Source Smokes tobacco daily 2022-02-25 00:00:00 Univers ity of [facility] Ex-smoker 2019-04-04 00:00:00 2019-04-04 00:00:00 Universi ty [facility] Medications Ordered Filled Start Stop Current Ordering Indication Dosage Frequency Signature Comments Components Source Medication Medication Date Date Medication? Clinician (SIG) Name Name ondansetron 2022- No 4mg 4 mg, Univ ers (ZOFRAN-ODT 11-24 07-10 Oral, ity of ) 17:00: 16:25 ONCE, 1 [place] disintegrat 00 :00 dose, On Medi orly ing tablet Mon Branch 4 mg 11/24/22 at 1200, PRIMITIVO HYDROcodone 2022- No 1{tbl} 1 tablet, Univers -acetaminop 11-24 07-10 Oral, ity of hen (NORCO) 17:00: 16:25 ONCE, 1 [place]-325 mg 00 :00 dose, On Medica l tablet 1 Mon Branch tablet 11/24/22 at 1200, Routine naproxen 2022- No [id number] 500mg Take 1 Univers 500 mg 11-24 [id number] tablet by ity o f tablet 00:00: 04:59 mouth in [place] 00 :00 the Medical morning Branch and 1 tablet in the evening. Take with meals. Do all this for 10 days. HYDROcodone 2022- No [id number] 1{tbl} Take 1 U nivers -acetaminop 11-24 tablet by it y of hen (NORCO) 00:00: 04:59 [place] 7.[place]-325 mg 00 :00 every 8 Medica l per tablet (eight) Branch hours as needed for Pain for up to 7 days. Indication s: acute pain metroNIDAZO 2022-0 Yes [id number] 500mg Take 1 Univers LE 500 mg 2-21 tablet by ity o f tablet 00:00: mouth [place] 00 every 12 Medical (twelve) Branch hours. metroNIDAZO 2022-0 Yes [id number] 500mg Take 1 Univers LE 500 mg 2-21 tablet by ity o f tablet 00:00: mouth [place] 00 every 12 Medical (twelve) Branch hours. metroNIDAZO 2022-2022- No [id number] 500mg Take 1 Univers LE 500 mg 2-07 07- tablet by ity of tablet 00:00: 05:59 mouth [place] 00 :00 every 12 Medical (twelve) Branch hours for 7 days. metroNIDAZO 2022-2022- No [id number] 500mg Take 1 Univers LE 500 mg 2-20 - tablet by ity of tablet 00:00: 00:00 mouth [place] 00 :00 every 12 Medical (twelve) Branch hours for 7 days. QUEtiapine 2022-0 2022- No 1{tbl} Take 1 Un denise 100 mg 2-16 02-16 tablet by ity of tablet 11:35: 00:00 mouth [place] 43 :00 every Medical morning. Branch QUEtiapine 2022-2022- No 1{tbl} Take 1 Un denise 100 mg 2-16 02-16 tablet by ity of tablet 11:35: 00:00 [...] 32 daily. Medical Branch lidocaine 2021-05- No [id number] 10mL Un denise 1% (PF) 0-26 10-26 ity of (XYLOCAINE) 15:30: 15:30 [place] injection 00 :00 Medical 10 mL Branch methylPREDN 2021-05 No [id number] 40mg Univers ISolone 0-03-12 ity of acetate 15:30: 15:31 [place] (DEPO-MEDRO 00 :00 Medical L) Branch injection 40 mg sodium 2021-05- No [id number] 1mL Unive rs bicarbonate 0- ity of 1 mEq/mL 15:30: 15:31 [place] (8.4 %) 00 :00 Medical injection 1 Branch mL NaCl 0.9% 2021-05 No [id number] 10mL Un denise (NS) 003-12 ity of injection 15:30: 15:31 [place] 10 mL 00 :00 Medical Branch NaCl 0.9% 2021-05 No [id number] 10mL 10 mL, Univers (NS) 003-12 Infiltrati ity of injection 15:30: 15:31 [place]CE[place] 10 [place] 00 :00 1 dose, On Medical Wed Branch 03/12/22 at 1045, Routine sodium 2021-05 No [id number] 1mL 1 mL, Univ ers bicarbonate 003-12 Infiltrati i ty of 1 mEq/mL 15:30: 15:31 on, ONCE, [place] (8.4 %) 00 :00 1 dose, On Medica l injection 1 Wed Branch mL 03/12/22 at 1045, Routine methylPREDN 2021-05 No [id number] 40mg 40 mg, Univers ISolone 003-12 Intra-patty ity o f acetate 15:30: 15:31 barry [place] (DEPO-MEDRO 00 :00 ONCE, 1 Medic al L) dose, On Branch injection Wed 40 mg 03/12/22 at 1045, Routine lidocaine 2021-05- No [id number] 10mL 10 mL, Univers 1% (PF) 003-12 Infiltrati ity o f (XYLOCAINE) 15:30: 15:30 on, ONCE, [place] injection 00 :00 1 dose, On Medi orly 10 mL Wed Branch 03/12/22 at 1045, Routine lidocaine 2021-05- No [id number] 10mL Un denise 1% (PF) 0- 10-26 ity of (XYLOCAINE) 15:30: 15:30 [place] injection 00 :00 Medical 10 mL Branch methylPREDN 2021-05 No [id number] 40mg Univers ISolone 03-12 ity of acetate 15:30: 15:31 [place] (DEPO-MEDRO 00 :00 Medical L) Branch injection 40 mg sodium 2021-05 No [id number] 1mL Unive rs bicarbonate 03-12 ity of 1 mEq/mL 15:30: 15:31 [place] (8.4 %) 00 :00 Medical injection 1 Branch mL NaCl 0.9% 2021-05 No [id number] 10mL Un denise (NS) 03-12 ity of injection 15:30: 15:31 [place] 10 mL 00 :00 Medical Branch NaCl 0.9% 2021-05 No [id number] 10mL 10 mL, Univers (NS) 003-12 Infiltrati ity of injection 15:30: 15:31 [place] ONCE, [place] 10 mL 00 :00 1 dose, On Medical Wed Branch 03/12/22 at 1045, Routine sodium 2021-05 No [id number] 1mL 1 mL, Univ ers bicarbonate 03-12 Infiltrati i ty of 1 mEq/mL 15:30: 15:31 on, ONCE, [place] (8.4 %) 00 :00 1 dose, On Medica l injection 1 Wed Branch mL 03/12/22 at 1045, Routine methylPREDN 2021-05 No [id number] 40mg 40 mg, Univers ISolone 03-12 Intra-patty ity o f acetate 15:30: 15:31 cular, [place] (DEPO-MEDRO 00 :00 ONCE, 1 Medic al L) dose, On Branch injection Wed 40 mg 03/12/22 at 1045, Routine lidocaine 2021-05 No [id number] 10mL 10 mL, Univers 1% (PF) 03-12 Infiltrati ity o f (XYLOCAINE) 15:30: 15:30 on, ONCE, [place] injection 00 :00 1 dose, On Medi orly 10 mL Wed Branch 03/12/22 at 1045, Routine lactated 2021-05- No [id number] 500mL Un denise ringers IV 0-26 10-26 ity of infusion 14:45: 15:04 [place] 500 mL 00 :00 Medical Branch lactated 2021-05- No [id number] 500mL at 20 U nivers ringers IV 0-26 10-26 mL/hr, 500 it y of infusion 14:45: 15:04 mL, IV [place] 500 mL 00 :00 Infusion, Medical ONCE, 1 Branch dose, On Thu03/12/22 at 0945, Routine lactated 2021-05- No [id number] 500mL Un denise ringers IV 0-26 10-26 ity of infusion 14:45: 15:04 [place] 500 mL 00 :00 Medical Branch lactated 2021-05- No [id number] 500mL at 20 U nivers ringers IV 0-26 10-26 mL/hr, 500 it y of infusion 14:45: 15:04 mL, IV [place] 500 mL 00 :00 Infusion, Medical ONCE, 1 Branch dose, On Thu03/12/22 at 0945, Routine gabapentin 2021-05 Yes [id number] 300mg Take 1 Univers 300 mg 0-11 capsule by ity of capsule 00:00: mouth in [address] and 1 capsule at noon and 1 capsule in the evening. gabapentin 2021-05 Yes [id number] 300mg Take 1 Univers 300 mg 0-11 capsule by ity of capsule 00:00: mouth in [address] and 1 capsule at noon and 1 capsule in the evening. gabapentin 2021-05 Yes [id number] 300mg Take 1 Univers 300 mg 0-11 capsule by ity of capsule 00:00: mouth in [address] and 1 capsule at noon and 1 capsule in the evening. gabapentin 2021-05 Yes [id number] 300mg Take 1 Univers 300 mg 0-11 capsule by ity of capsule 00:00: mouth in [address] and 1 capsule at noon and 1 capsule in the evening. gabapentin 2021-05 Yes [id number] 300mg Take 1 Univers 300 mg 0-11 capsule by ity of capsule 00:00: mouth in [address] and 1 capsule at noon and 1 capsule in the evening. gabapentin 2021-05 Yes [id number] 300mg Take 1 Univers 300 mg 0-11 capsule by ity of capsule 00:00: mouth in [address] and 1 capsule at noon and 1 capsule in the evening. gabapentin 2021-1 Yes [id number] 300mg Take 1 Univers 300 mg 0-11 capsule by ity of capsule 00:00: mouth in [address] and 1 capsule at noon and 1 capsule in the evening. gabapentin 2021- Yes [id number] 300mg Take 1 Univers 300 mg 0-11 capsule by ity of capsule 00:00: mouth in [address] and 1 capsule at noon and 1 capsule in the evening. gabapentin 1 Yes [id number] 300mg Take 1 Univers 300 mg 0-11 capsule by ity of capsule 00:00: mouth in [address] and 1 capsule at noon and 1 capsule in the evening. gabapentin 2021-05 Yes [id number] 300mg Take 1 Univers 300 mg 0-11 capsule by ity of capsule 00:00: mouth in [address] and 1 capsule at noon and 1 capsule in the evening. gabapentin 2021-05 Yes [id number] 300mg Take 1 Univers 300 mg 0-11 capsule by ity of capsule 00:00: mouth in [address] and 1 capsule at noon and 1 capsule in the evening. gabapentin 2021-1 Yes [id number] 300mg Take 1 Univers 300 mg 0-11 capsule by ity of capsule 00:00: mouth in [address] and 1 capsule at noon and 1 capsule in the evening. gabapentin 2021-05 Yes [id number] 300mg Take 1 Univers 300 mg 0-11 capsule by ity of capsule 00:00: mouth in [address] and 1 capsule at noon and 1 capsule in the evening. gabapentin 2021-1 Yes [id number] 300mg Take 1 Univers 300 mg 0-11 capsule by ity of capsule 00:00: mouth in [address] and 1 capsule at noon and 1 capsule in the evening. GABAPENTIN 2021-0 Yes [id number] TAKE 1 Univers 300 mg 9-22 CAPSULE BY ity of capsule 00:00: MOUTH [place] [address] TWICE Medical DAILY Branch NEEDED FOR PAIN GABAPENTIN 2021-0 202- No [id number] TAKE 1 Univers 300 mg 9-22 10-11 CAPSULE BY ity of capsule 00:00: 00:00 MOUTH [place] 00 :00 TWICE Medical DAILY Branch NEEDED FOR PAIN GABAPENTIN 2021-0 2022- No [id number] TAKE 1 Univers 300 mg 9-22 10-11 CAPSULE BY ity of capsule 00:00: 00:00 MOUTH [place] 00 :00 TWICE Medical DAILY Branch NEEDED FOR PAIN GABAPENTIN 2021-0 2021- No [id number] TAKE 1 Univers 300 mg 9-22 10-11 CAPSULE BY ity of capsule 00:00: 00:00 MOUTH [place] 00 :00 TWICE Medical DAILY Branch NEEDED FOR PAIN GABAPENTIN 2021-0 Yes [id number] TAKE 1 Univers 300 mg 8-23 CAPSULE BY ity of capsule 00:00: MOUTH [place] 00 TWICE Medical DAILY Branch NEEDED FOR PAIN GABAPENTIN 2021-0 Yes [id number] TAKE 1 Univers 300 mg 8-23 CAPSULE BY ity of capsule 00:00: MOUTH [place] 00 TWICE Medical DAILY Branch NEEDED FOR PAIN GABAPENTIN 2021-0 Yes [id number] TAKE 1 Univers 300 mg 8-23 CAPSULE BY ity of capsule 00:00: MOUTH [place] 00 TWICE Medical DAILY Branch NEEDED FOR PAIN GABAPENTIN 2021-0 2021- No [id number] TAKE 1 Univers 300 mg 8-23 09-22 CAPSULE BY ity of capsule 00:00: 00:00 MOUTH [place] 00 :00 TWICE Medical DAILY Branch NEEDED FOR PAIN gabapentin 2021-0 Yes [id number] 300mg Take 1 Univers 300 mg 7-19 capsule by ity of capsule 00:00: mouth 2 00 (two) Medical times Branch daily as needed for Pain (scale 7-10). gabapentin 2021-0 Yes [id number] 300mg Take 1 Univers 300 mg 7-19 capsule by ity of capsule 00:00: mouth 2 [place] 00 (two) Medical times Branch daily as needed for Pain (scale 7-10). gabapentin 2021-0 2- No [id number] 300mg Take 1 Univers 300 mg 7-19 08-23 capsule by ity of capsule 00:00: 00:00 mouth 2 [place] 00 :00 (two) Medical times Branch daily as needed for Pain (scale 7-10). methocarbam 2021-0 Yes [id number] 500mg Take 1 Univers oL 500 mg 3-12 tablet by ity o f tablet 00:00: mouth 4 [place] 00 (four) Medical times Branch daily as needed for Pain (scale 4-6). naproxen 2022-0 Yes [id number] 500mg Take 1 U nivers (NAPROSYN) 3-12 tablet by ity of 500 mg 00:00: mouth 2 [place] tablet 00 (two) Medical times Branch daily with meals. methocarbam 2022-0 Yes [id number] 500mg Take 1 Univers oL 500 mg 3-12 tablet by ity o f tablet 00:00: mouth 4 [place] (four) Medical times Branch daily as needed for Pain (scale 4-6). naproxen 2022-0 Yes [id number] 500mg Take 1 U nivers (NAPROSYN) 3-12 tablet by ity of 500 mg 00:00: mouth 2 [place] tablet 00 (two) Medical times Branch daily with meals. methocarbam 2022-0 Yes [id number] 500mg Take 1 Univers oL 500 mg 3-12 tablet by ity o f tablet 00:00: mouth 4 (four) Medical times Branch daily as needed for Pain (scale 4-6). naproxen 2022-0 Yes [id number] 500mg Take 1 U nivers (NAPROSYN) 3-12 tablet by ity of 500 mg 00:00: mouth 2 [place] tablet 00 (two) Medical times Branch daily with meals. methocarbam 2022-0 Yes [id number] 500mg Take 1 Univers oL 500 mg 3-12 tablet by ity o f tablet 00:00: mouth 4 (four) Medical times Branch daily as needed for Pain (scale 4-6). naproxen 2022-0 Yes [id number] 500mg Take 1 U nivers (NAPROSYN) 3-12 tablet by ity of 500 mg 00:00: mouth 2 [place] tablet 00 (two) Medical times Branch daily with meals. methocarbam 2022-0 Yes [id number] 500mg Take 1 Univers oL 500 mg 3-12 tablet by ity o f tablet 00:00: mouth 4 00 (four) Medical times Branch daily as needed for Pain (scale 4-6). naproxen 2022-0 Yes [id number] 500mg Take 1 U nivers (NAPROSYN) 3-12 tablet by ity of 500 mg 00:00: mouth 2 [place] tablet 00 (two) Medical times Branch daily with meals. methocarbam 2022-0 Yes [id number] 500mg Take 1 Univers oL 500 mg 3-12 tablet by ity o f tablet 00:00: mouth 4 (four) Medical times Branch daily as needed for Pain (scale 4-6). naproxen 2022-0 Yes [id number] 500mg Take 1 U nivers (NAPROSYN) 3-12 tablet by ity of 500 mg 00:00: mouth 2 [place] tablet 00 (two) Medical times Branch daily with meals. methocarbam 2022-0 Yes [id number] 500mg Take 1 Univers oL 500 mg 3-12 tablet by ity o f tablet 00:00: mouth 4 (four) Medical times Branch daily as needed for Pain (scale 4-6). naproxen 2022-0 Yes [id number] 500mg Take 1 U nivers (NAPROSYN) 3-12 tablet by ity of 500 mg 00:00: mouth 2 [place] tablet 00 (two) Medical times Branch daily with meals. methocarbam 2022-0 Yes [id number] 500mg Take 1 Univers oL 500 mg 3-12 tablet by ity o f tablet 00:00: mouth (four) Medical times Branch daily as needed for Pain (scale 4-6). naproxen 2022-0 Yes [id number] 500mg Take 1 U nivers (NAPROSYN) 3-12 tablet by ity of 500 mg 00:00: mouth 2 [place] tablet 00 (two) Medical times Branch daily with meals. methocarbam 2022-0 Yes [id number] 500mg Take 1 Univers oL 500 mg 3-12 tablet by ity o f tablet 00:00: mouth 4 (four) Medical times Branch daily as needed for Pain (scale 4-6). naproxen 2022-0 Yes [id number] 500mg Take 1 U nivers (NAPROSYN) 3-12 tablet by ity of 500 mg 00:00: mouth 2 [place] tablet 00 (two) Medical times Branch daily with meals. methocarbam 2022-0 Yes [id number] 500mg Take 1 Univers oL 500 mg 3-12 tablet by ity o f tablet 00:00: mouth 4 (four) Medical times Branch daily as needed for Pain (scale 4-6). naproxen 2022-0 Yes [id number] 500mg Take 1 U nivers (NAPROSYN) 3-12 tablet by ity of 500 mg 00:00: mouth 2 [place] tablet 00 (two) Medical times Branch daily with meals. methocarbam 2-0 Yes [id number] 500mg Take 1 Univers oL 500 mg 3-12 tablet by ity o f tablet 00:00: mouth 4 [place] 00 (four) Medical times Branch daily as needed for Pain (scale 4-6). naproxen 2-0 Yes [id number] 500mg Take 1 U nivers (NAPROSYN) 3-12 tablet by ity of 500 mg 00:00: mouth 2 [place] tablet 00 (two) Medical times Branch daily with meals. methocarbam 2-0 Yes [id number] 500mg Take 1 Univers oL 500 mg 3-12 tablet by ity o f tablet 00:00: mouth 4 [place] 00 (four) Medical times Branch daily as needed for Pain (scale 4-6). naproxen 2021-0 Yes [id number] 500mg Take 1 U nivers (NAPROSYN) 3-12 tablet by ity of 500 mg 00:00: mouth 2 [place] tablet 00 (two) Medical times Branch daily with meals. methocarbam 2021-0 Yes [id number] 500mg Take 1 Univers oL 500 mg 3-12 tablet by ity o f tablet 00:00: mouth 4 [place] 00 (four) Medical times Branch daily as needed for Pain (scale 4-6). naproxen 2-0 Yes [id number] 500mg Take 1 U nivers (NAPROSYN) 3-12 tablet by ity of 500 mg 00:00: mouth 2 [place] tablet 00 (two) Medical times Branch daily with meals. methocarbam 2-0 Yes [id number] 500mg Take 1 Univers oL 500 mg 3-12 tablet by ity o f tablet 00:00: mouth 4 [place] 00 (four) Medical times Branch daily as needed for Pain (scale 4-6). naproxen 2022-0 Yes [id number] 500mg Take 1 U nivers (NAPROSYN) 3-12 tablet by ity of 500 mg 00:00: mouth 2 [place] tablet 00 (two) Medical times Branch daily with meals. methocarbam 2-0 2023- No [id number] 500mg Take 1 Univers oL 500 mg -04 18-16 tablet by ity of tablet 00:00: 00:00 mouth 4 [place] 00 :00 (four) Medical times Branch daily as needed for Pain (scale 4-6). naproxen 0 2022- No [id number] 500mg Take 1 Univers (NAPROSYN) 3-04 18-16 tablet by ity of 500 mg 00:00: 00:00 mouth 2 [place] tablet 00 :00 (two) Medical times Branch daily with meals. methocarbam 2022- No [id number] 500mg Take 1 Univers oL 500 mg -04 18-16 tablet by ity of tablet 00:00: 00:00 mouth 4 [place] 00 :00 (four) Medical times Branch daily as needed for Pain (scale 4-6). naproxen 2022- No [id number] 500mg Take 1 Univers (NAPROSYN) 07-2716 tablet by ity of 500 mg 00:00: 00:00 mouth 2 [place] tablet 00 :00 (two) Medical times Branch daily with meals. metroNIDAZO 0 Yes [id number] 500mg Take 1 Univers LE 500 mg 2-18 tablet by ity o f tablet 00:00: mouth [place] 00 every 12 Medical (twelve) Branch hours. metroNIDAZO 2021-0 Yes [id number] 500mg Take 1 Univers LE 500 mg 2-18 tablet by ity o f tablet 00:00: mouth [place] 00 every 12 Medical (twelve) Branch hours. metroNIDAZO 2021-0 Yes [id number] 500mg Take 1 Univers LE 500 mg 2-18 tablet by ity o f tablet 00:00: mouth [place] 00 every 12 Medical (twelve) Branch hours. metroNIDAZO 2021-0 Yes [id number] 500mg Take 1 Univers LE 500 mg 2-18 tablet by ity o f tablet 00:00: mouth [place] 00 every 12 Medical (twelve) Branch hours. metroNIDAZO 2021-0 Yes [id number] 500mg Take 1 Univers LE 500 mg 2-18 tablet by ity o f tablet 00:00: mouth [place] 00 every 12 Medical (twelve) Branch hours. metroNIDAZO 2021-0 Yes [id number] 500mg Take 1 Univers LE 500 mg 2-18 tablet by ity o f tablet 00:00: mouth [place] 00 every 12 Medical (twelve) Branch hours. metroNIDAZO 2-0 Yes [id number] 500mg Take 1 Univers LE 500 mg 2-18 tablet by ity o f tablet 00:00: mouth [place] 00 every 12 Medical (twelve) Branch hours. metroNIDAZO 2-0 Yes [id number] 500mg Take 1 Univers LE 500 mg 2-18 tablet by ity o f tablet 00:00: mouth [place] 00 every 12 Medical (twelve) Branch hours. metroNIDAZO 2-0 Yes [id number] 500mg Take 1 Univers LE 500 mg 2-18 tablet by ity o f tablet 00:00: mouth [place] 00 every 12 Medical (twelve) Branch hours. metroNIDAZO 2-0 Yes [id number] 500mg Take 1 Univers LE 500 mg 2-18 tablet by ity o f tablet 00:00: mouth [place] 00 every 12 Medical (twelve) Branch hours. metroNIDAZO 2021-0 Yes [id number] 500mg Take 1 Univers LE 500 mg 2-18 tablet by ity o f tablet 00:00: mouth [place] 00 every 12 Medical (twelve) Branch hours. metroNIDAZO 2021-0 Yes [id number] 500mg Take 1 Univers LE 500 mg 2-18 tablet by ity o f tablet 00:00: mouth [place] 00 every 12 Medical (twelve) Branch hours. metroNIDAZO 2021-0 Yes [id number] 500mg Take 1 Univers LE 500 mg 2-18 tablet by ity o f tablet 00:00: mouth [place] 00 every 12 Medical (twelve) Branch hours. metroNIDAZO 2021-0 Yes [id number] 500mg Take 1 Univers LE 500 mg 2-18 tablet by ity o f tablet 00:00: mouth [place] 00 every 12 Medical (twelve) Branch hours. metroNIDAZO 2-0 2023- No [id number] 500mg Take 1 Univers LE 500 mg 2-18 02-16 tablet by ity of tablet 00:00: 00:00 mouth [place] 00 :00 every 12 Medical (twelve) Branch hours. metroNIDAZO 2022-0 2023- No [id number] 500mg Take 1 Univers LE 500 mg [...] y of ed 10 mg 15:57: mouth [place] Cap 07 daily. Medical Branch carvediloL 2020-05 Yes 6.25mg Take 6.25 Univers 6.25 mg 2-06 mg by ity of tablet 00:00: mouth [address] [place] [address] (two) Medical times Branch daily. carvediloL 2020-05 Yes 6.25mg Take 6.25 Univers 6.25 mg 2-06 mg by ity of tablet 00:00: mouth [address] [place] [address] (two) Medical times Branch daily. carvediloL 2020-05 Yes 6.25mg Take 6.25 Univers 6.25 mg 2-06 mg by ity of tablet 00:00: mouth [address] [place] [address] (two) Medical times Branch daily. carvediloL 2020-05 Yes 6.25mg Take 6.25 Univers 6.25 mg 2-06 mg by ity of tablet 00:00: mouth [address] [place] [address] (two) Medical times Branch daily. carvediloL 2020-05 Yes 6.25mg Take 6.25 Univers 6.25 mg 2-06 mg by ity of tablet 00:00: mouth [address] [place] [address] (two) Medical times Branch daily. carvediloL 2020-05 Yes 6.25mg Take 6.25 Univers 6.25 mg 2-06 mg by ity of tablet 00:00: mouth [address] [place] [address] (two) Medical times Branch daily. carvediloL 2020-05 Yes 6.25mg Take 6.25 Univers 6.25 mg 2-06 mg by ity of tablet 00:00: mouth [address] [place] [address] (two) Medical times Branch daily. carvediloL 2020-05 Yes 6.25mg Take 6.25 Univers 6.25 mg 2-06 mg by ity of tablet 00:00: mouth [place] (two) Medical times Branch daily. carvediloL 2020-05 Yes 6.25mg Take 6.25 Univers 6.25 mg 2-06 mg by ity of tablet 00:00: mouth [address] [place] [address] (two) Medical times Branch daily. carvediloL 2020-05 Yes 6.25mg Take 6.25 Univers 6.25 mg 2-06 mg by ity of tablet 00:00: mouth [address] [place] [address] (two) Medical times Branch daily. carvediloL 2020-05 Yes 6.25mg Take 6.25 Univers 6.25 mg 2-06 mg by ity of tablet 00:00: mouth [place] (two) Medical times Branch daily. carvediloL 2020-05 Yes 6.25mg Take 6.25 Univers 6.25 mg 2-06 mg by ity of tablet 00:00: mouth [place] (two) Medical times Branch daily. carvediloL 2020-05 Yes 6.25mg Take 6.25 Univers 6.25 mg 2-06 mg by ity of tablet 00:00: mouth [place] (two) Medical times Branch daily. carvediloL 2020-05 Yes 6.25mg Take 6.25 Univers 6.25 mg 2-06 mg by ity of tablet 00:00: mouth [place] (two) Medical times Branch daily. carvediloL 2020-05- No 6.25mg Take 6.25 Univers 6.25 mg 2-06 02-16 mg by ity of tablet 00:00: 00:[address] [place] [address] 00 : (two) Medical times Branch daily. carvediloL 2020-05- No 6.25mg Take 6.25 Univers 6.25 mg 2-06 02-16 mg by ity of tablet 00:00: 00:[address] [place] [address] 00 :00 (two) Medical times Branch daily. orphenadrin 2020-05 Yes 100mg Take 100 U nivers e 100 mg SR 1-24 mg by ity of tablet 00:00: mouth [place] (two) Medical times Branch daily. orphenadrin 2020-05 Yes 100mg Take 100 U nivers e 100 mg SR 1-24 mg by ity of tablet 00:00: mouth [place] (two) Medical times Branch daily. orphenadrin 2020-05 Yes 100mg Take 100 U nivers e 100 mg SR 1-24 mg by ity of tablet 00:00: mouth [place] (two) Medical times Branch daily. orphenadrin 2020-05 Yes 100mg Take 100 U nivers e 100 mg SR 1-24 mg by ity of tablet 00:00: mouth [place] (two) Medical times Branch daily. orphenadrin 2020-05 Yes 100mg Take 100 U nivers e 100 mg SR 1-24 mg by ity of tablet 00:00: mouth [place] (two) Medical times Branch daily. orphenadrin 2020- Yes 100mg Take 100 U nivers e 100 mg SR 1-24 mg by ity of tablet 00:00: mouth [place] (two) Medical times Branch daily. orphenadrin 2020- Yes 100mg Take 100 U nivers e 100 mg SR 1-24 mg by ity of tablet 00:00: mouth [place] (two) Medical times Branch daily. orphenadrin 2020- Yes 100mg Take 100 U nivers e 100 mg SR 1-24 mg by ity of tablet 00:00: mouth [place] (two) Medical times Branch daily. orphenadrin 2020- Yes 100mg Take 100 U nivers e 100 mg SR 1-24 mg by ity of tablet 00:00: mouth [place] (two) Medical times Branch daily. orphenadrin 2020- Yes 100mg Take 100 U nivers e 100 mg SR 1-24 mg by ity of tablet 00:00: mouth [place] (two) Medical times Branch daily. orphenadrin 2020- Yes 100mg Take 100 U nivers e 100 mg SR 1-24 mg by ity of tablet 00:00: mouth [place] (two) Medical times Branch daily. orphenadrin 2020- Yes 100mg Take 100 U nivers e 100 mg SR 1-24 mg by ity of tablet 00:00: mouth [place] (two) Medical times Branch daily. orphenadrin 2020- Yes 100mg Take 100 U nivers e 100 mg SR 1-24 mg by ity of tablet 00:00: mouth [place] (two) Medical times Branch daily. orphenadrin 2020- Yes 100mg Take 100 U nivers e 100 mg SR 1-24 mg by ity of tablet 00:00: mouth [place] (two) Medical times Branch daily. orphenadrin 2020-05- No 100mg Take 100 Univers e 100 mg SR 1-24 02-16 mg by ity of tablet 00:00: 00:[address] [place] [address] 00 :00 (two) Medical times Branch daily. orphenadrin 2020-2022- No 100mg Take 100 Univers e 100 mg SR 1-24 02-16 mg by ity of tablet 00:00: 00:00 mouth 2 [place] 00 :00 (two) Medical times Branch daily. carvedilol 2020- Yes Take by [employer] ([employer]) 1-18 mouth 2 ity of 12.5 mg 08:16: (two) [place] tablet 26 times Medical daily with Branch meals. carvedilol 2019- Yes Take by [employer] ([employer]) 1-18 mouth 2 ity of 12.5 mg 08:16: (two) [place] tablet 26 times Medical daily with Branch meals. carvedilol 2019- Yes Take by [employer] ([employer]) 1-18 mouth 2 ity of 12.5 mg 08:16: (two) [place] tablet 26 times Medical daily with Branch meals. carvedilol 2019- Yes Take by [employer] ([employer]) 1-18 mouth 2 ity of 12.5 mg 08:16: (two) [place] tablet 26 times Medical daily with Branch meals. carvedilol 2019- Yes Take by [employer] ([employer]) 1-18 mouth 2 ity of 12.5 mg 08:16: (two) [place] tablet 26 times Medical daily with Branch meals. carvedilol 2019- Yes Take by [employer] ([employer]) 1-18 mouth 2 ity of 12.5 mg 08:16: (two) [place] tablet 26 times Medical daily with Branch meals. carvedilol 2019- Yes Take by [employer] ([employer]) 1-18 mouth 2 ity of 12.5 mg 08:16: (two) [place] tablet 26 times Medical daily with Branch meals. carvedilol 2019- Yes Take by [employer] ([employer]) 1-18 mouth 2 ity of 12.5 mg 08:16: (two) [place] tablet 26 times Medical daily with Branch meals. carvedilol 2020- Yes Take by [employer] ([employer]) 1-18 mouth 2 ity of 12.5 mg 08:16: (two) [place] tablet 26 times Medical daily with Branch meals. carvedilol 2020- Yes Take by [employer] ([employer]) 1-18 mouth 2 ity of 12.5 mg 08:16: (two) [place] tablet 26 times Medical daily with Branch meals. carvedilol 2019- Yes Take by [employer] ([employer]) 1-18 mouth 2 ity of 12.5 mg 08:16: (two) [place] tablet 26 times Medical daily with Branch meals. carvedilol 2019-05 Yes Take by Univ ers ([facility]G) 1-18 mouth 2 ity of 12.5 mg 08:16: (two) [place] tablet 26 times Medical daily with Branch meals. carvedilol 2019-05 Yes Take by Univ ers (COREG) 1-18 mouth 2 ity of 12.5 mg 08:16: (two) [place] tablet 26 times Medical daily with Branch meals. carvedilol 2019-05 Yes Take by Univ ers (COREG) 1-18 mouth 2 ity of 12.5 mg 08:16: (two) [place] tablet 26 times Medical daily with Branch meals. losartan 50 2019-05 Yes Univer s mg tablet 0-03 ity of 00:00: Medical Branch losartan 50 2020- Yes Univer s mg tablet 0-03 ity of 00:00: Medical Branch losartan 50 2020- Yes Univer s mg tablet 0-03 ity of 00:00: Medical Branch losartan 50 2020- Yes Univer s mg tablet 0-03 ity of 00:00: Medical Branch losartan 50 2020-1 Yes Univer s mg tablet 0-03 ity of 00:00: Medical Branch losartan 50 2020-1 Yes Univer s mg tablet 0-03 ity of 00:00: Medical Branch losartan 50 2020-1 Yes Univer s mg tablet 0-03 ity of 00:00: Medical Branch losartan 50 2020-1 Yes Univer s mg tablet 0-03 ity of 00:00: 00 Medical Branch losartan 50 2020-1 Yes Univer s mg tablet 0-03 ity of 00:00: [place] [facility] losartan 50 2020-1 Yes Univer s mg tablet 0-03 ity of 00:00: Medical Branch losartan 50 2020-1 Yes Univer s mg tablet 0-03 ity of 00:00: 00 Medical Branch losartan 50 2020-1 Yes Univer s mg tablet 0-03 ity of 00:00: 00 Medical Branch losartan 50 2020-1 Yes Univer s mg tablet 0-03 ity of 00:00: Medical Branch losartan 50 2020-1 Yes Univer s mg tablet 0-03 ity of 00:00: [place] 00 Medical Branch losartan 50 2019-05 Yes Univer s mg tablet 0-03 ity of 00:00: [place] [facility] losartan 50 2019- Yes Univer s mg tablet 0-03 ity of 00:00: [place] [facility] losartan 50 2019- Yes Univer s mg tablet 0-03 ity of 00:00: [place] [facility] losartan 50 2020- Yes Univer s mg tablet 0-03 ity of 00:00: [place] [facility] losartan 50 2019- Yes Univer s mg tablet 0-03 ity of 00:00: [place] [facility] losartan 50 2019-05 Yes Univer s mg tablet 0-03 ity of 00:00: [place] [address] Medical Branch losartan 50 2019-05 Yes Univer s mg tablet 0-03 ity of 00:00: [address] lamoTRIgine 2019-05 Yes TK 1 T PO U nivers 25 mg 0-02 D ity of tablet 00:00: [address] lamoTRIgine 2019-05 Yes TK 1 T PO U nivers 25 mg 0-02 D ity of tablet 00:00: [address] lamoTRIgine 2019-05 Yes TK 1 T PO U nivers 25 mg 0-02 D ity of tablet 00:00: [address] lamoTRIgine 2019-05 Yes TK 1 T PO U nivers 25 mg 0-02 D ity of tablet 00:00: [address] lamoTRIgine 2019-05 Yes TK 1 T PO U nivers 25 mg 0-02 D ity of tablet 00:00: [address] lamoTRIgine 2019-05 Yes TK 1 T PO U nivers 25 mg 0-02 D ity of tablet 00:00: [address] lamoTRIgine 2019-05 Yes TK 1 T PO U nivers 25 mg 0-02 D ity of tablet 00:00: [address] lamoTRIgine 2019-05 Yes TK 1 T PO U nivers 25 mg 0-02 D ity of tablet 00:00: [address] lamoTRIgine 2019-05 Yes TK 1 T PO U nivers 25 mg 0-02 D ity of tablet 00:00: [address] lamoTRIgine 2019-05 Yes TK 1 T PO U nivers 25 mg 0-02 D ity of tablet 00:00: [place] [facility] lamoTRIgine 2020- Yes TK 1 T PO U nivers 25 mg 0-02 D ity of tablet 00:00: [place] [facility] lamoTRIgine 2020- Yes TK 1 T PO U nivers 25 mg 0-02 D ity of tablet 00:00: [place] [facility] lamoTRIgine 2019-05 Yes TK 1 T PO U nivers 25 mg 0-02 D ity of tablet 00:00: [place] [facility] lamoTRIgine 2019- Yes TK 1 T PO U nivers 25 mg 0-02 D ity of tablet 00:00: [place] [facility] lamoTRIgine 2019- Yes TK 1 T PO U nivers 25 mg 0-02 D ity of tablet 00:00: [place] [facility] lamoTRIgine 2019-05 Yes TK 1 T PO U nivers 25 mg 0-02 D ity of tablet 00:00: [place] [facility] lamoTRIgine 2019-05 Yes TK 1 T PO U nivers 25 mg 0-02 D ity of tablet 00:00: [place] [facility] lamoTRIgine 2019-05 Yes TK 1 T PO U nivers 25 mg 0-02 D ity of tablet 00:00: [place] [facility] lamoTRIgine 2019-05 Yes TK 1 T PO U nivers 25 mg 0-02 D ity of tablet 00:00: [place] [facility] lamoTRIgine 2019-05 Yes TK 1 T PO U nivers 25 mg 0-02 D ity of tablet 00:00: [place] [facility] lamoTRIgine 2019-05 Yes TK 1 T PO U nivers 25 mg 0-02 D ity of tablet 00:00: [place] [facility] ibuprofen 2020-0 Yes [id number] 600mg Take 1 Univers 600 mg 7-08 tablet by ity of tablet 00:00: mouth [place] every 6 Medical (six) Branch hours as needed for Pain (scale 4-6). ibuprofen 2020-0 Yes [id number] 600mg Take 1 Univers 600 mg 7-08 tablet by ity of tablet 00:00: mouth [place] every 6 Medical (six) Branch hours as needed for Pain (scale 4-6). ibuprofen 2020-0 Yes [id number] 600mg Take 1 Univers 600 mg 7-08 tablet by ity of tablet 00:00: mouth [place] 00 every 6 Medical (six) Branch hours as needed for Pain (scale 4-6). ibuprofen 2020-0 Yes [id number] 600mg Take 1 Univers 600 mg 7-08 tablet by ity of tablet 00:00: mouth [place] 00 every 6 Medical (six) Branch hours as needed for Pain (scale 4-6). ibuprofen 2020-0 Yes [id number] 600mg Take 1 Univers 600 mg 7-08 tablet by ity of tablet 00:00: mouth [place] 00 every 6 Medical (six) Branch hours as needed for Pain (scale 4-6). ibuprofen 2020-0 Yes [id number] 600mg Take 1 Univers 600 mg 7-08 tablet by ity of tablet 00:00: mouth [place] 00 every 6 Medical (six) Branch hours as needed for Pain (scale 4-6). ibuprofen 2020-0 Yes [id number] 600mg Take 1 Univers 600 mg 7-08 tablet by ity of tablet 00:00: mouth [place] 00 every 6 Medical (six) Branch hours as needed for Pain (scale 4-6). ibuprofen 2020-0 Yes [id number] 600mg Take 1 Univers 600 mg 7-08 tablet by ity of tablet 00:00: mouth [place] 00 every 6 Medical (six) Branch hours as needed for Pain (scale 4-6). ibuprofen 2020-0 Yes [id number] 600mg Take 1 Univers 600 mg 7-08 tablet by ity of tablet 00:00: mouth [place] 00 every 6 Medical (six) Branch hours as needed for Pain (scale 4-6). ibuprofen 2020-0 Yes [id number] 600mg Take 1 Univers 600 mg 7-08 tablet by ity of tablet 00:00: mouth [place] 00 every 6 Medical (six) Branch hours as needed for Pain (scale 4-6). ibuprofen 2020-0 Yes [id number] 600mg Take 1 Univers 600 mg 7-08 tablet by ity of tablet 00:00: mouth [place] 00 every 6 Medical (six) Branch hours as needed for Pain (scale 4-6). ibuprofen 2020-0 Yes [id number] 600mg Take 1 Univers 600 mg 7-08 tablet by ity of tablet 00:00: mouth [place] 00 every 6 Medical (six) Branch hours as needed for Pain (scale 4-6). ibuprofen 2020-0 Yes [id number] 600mg Take 1 Univers 600 mg 7-08 tablet by ity of tablet 00:00: mouth [place] 00 every 6 Medical (six) Branch hours as needed for Pain (scale 4-6). ibuprofen 2020-0 Yes [id number] 600mg Take 1 Univers 600 mg 7-08 tablet by ity of tablet 00:00: mouth [place] 00 every 6 Medical (six) Branch hours as needed for Pain (scale 4-6). ibuprofen 2019-3- No [id number] 600mg Take 1 Univers 600 mg 7-08 02-16 tablet by ity of tablet 00:00: 00:00 mouth [place] 00 :00 every 6 Medical (six) Branch hours as needed for Pain (scale 4-6). ibuprofen 2019-2022- No [id number] 600mg Take 1 Univers 600 mg 7-08 -16 tablet by ity of tablet 00:00: 00:00 mouth [place] 00 :00 every 6 Medical (six) Branch hours as needed for Pain (scale 4-6). Immunizations Ordered Filled Date Status Comments Source Immunization Name Immunization Name [facility] 2021-07-03 Completed University of 00:00:00 [facility] TDAP 2021-07-03 Completed University of 00:00:00 [facility] TDAP 2021-07-03 Completed University of 00:00:00 [facility] TDAP 2021-07-03 Completed University of 00:00:00 [facility] TDAP 2021-07-03 Completed University of 00:00:00 [facility] TDAP 2021-07-03 Completed University of 00:00:00 [facility] TDAP 2021-07-03 Completed University of 00:00:00 [facility] TDAP 2021-07-03 Completed University of 00:00:00 [facility] TDAP 2021-07-03 Completed University of 00:00:00 [facility] TDAP 2021-07-03 Completed University of 00:00:00 [facility] TDAP 2021-07-03 Completed University of 00:00:00 [facility] TDAP 2021-07-03 Completed University of 00:00:00 [facility] TDAP 2021-07-03 Completed University of 00:00:00 [facility] TDAP 2021-07-03 Completed University of 00:00:00 [facility] TDAP 2021-07-03 Completed University of 00:00:00 [facility] TDAP 2021-07-03 Completed University of 00:00:00 [place] [facility] TDAP 2021-07-03 Completed University of 00:00:00 [place] [facility] TDAP 2021-07-03 Completed University of 00:00:00 [place] [facility] TDAP 2021-07-03 Completed University of 00:00:00 [facility] Branch TD, NOS 2011-05-18 Completed University of 00:00:00 [place] [facility] TD, NOS 2011-05-18 Completed University of 00:00:00 [facility] Branch TD, NOS 2011-05-18 Completed University of 00:00:00 [place] [facility] Td 2011-05-18 Completed University of 00:00:00 [place] [facility] Td 2011-05-18 Completed University of 00:00:00 [place] [facility] Td 2011-05-18 Completed University of 00:00:00 [place] [facility] Td 2011-05-18 Completed University of 00:00:00 [place] [facility] Td 2011-05-18 Completed University of 00:00:00 [place] [facility] Td 2011-05-18 Completed University of 00:00:00 [place] [facility] Td 2011-05-18 Completed University of 00:00:00 [place] [facility] Td 2011-05-18 Completed University of 00:00:00 [place] [facility] Td 2011-05-18 Completed University of 00:00:00 [place] [facility] Td 2011-05-18 Completed University of 00:00:00 [place] [facility] Td 2011-05-18 Completed University of 00:00:00 [place] [facility] Td 2011-05-18 Completed University of 00:00:00 [place] [facility] Td 2011-05-18 Completed University of 00:00:00 [place] [facility] TD, NOS 2011-05-18 Completed University of 00:00:00 [place] [facility] TD, NOS 2011-05-18 Completed University of 00:00:00 [place] [facility] TD, NOS 2011-05-18 Completed University of 00:00:00 [facility] Branch TD, NOS Unknown Completed [facility] TDAP Unknown Completed [facility] TD, NOS Unknown Completed University [facility] TDAP Unknown Completed [facility] Vital Signs Vital Name Observation Time Observation Value Comments Source Systolic blood 2022-11-24 15:45:00 169 mm[Hg] Univer sity of pressure [facility] Diastolic blood 2022-11-24 15:45:00 86 mm[Hg] Unive rsity of pressure [place] [facility] Heart rate 2022-11-24 15:45:00 95 /min Universi ty of [place] [facility] Body temperature 2022-11-24 15:45:00 37 Elizabeth Univ ersity of [place] [facility] Respiratory rate 2022-11-24 15:45:00 18 /min Univ ersity of [place] [facility] Body height 2022-11-24 15:45:00 160 cm Universi ty of [place] [facility] Body weight 2022-11-24 15:45:00 171.369 kg Universi ty of [place] [facility] BMI 2022-11-24 15:45:00 66.92 kg/m2 Universi ty of [facility] Oxygen saturation in 2022-11-24 15:45:00 96 /min University of Arterial blood by [facility] Pulse oximetry Branch Systolic blood 2022-07-03 15:05:00 144 mm[Hg] Univer sity of pressure [place] [facility] [place] Diastolic blood 2022-07-03 15:05:00 91 mm[Hg] Unive rsity of pressure [place] [facility] Heart rate 2022-07-03 14:53:00 80 /min Universi ty of [place] [facility] Body temperature 2022-07-03 14:53:00 36.78 [place] Univ ersity of [place] [facility] Respiratory rate 2022-07-03 14:53:00 18 /min Univ ersity of [place] [facility] Body height 2022-07-03 14:53:00 162.6 cm Universi ty of [place] [facility] Body weight 2022-07-03 14:53:00 167.831 kg Universi ty of [place] [facility] BMI 2022-07-03 14:53:00 63.51 kg/m2 Universi ty of [place] [facility] Respiratory rate 2022-03-12 16:00:00 18 /min Univ ersity of [facility] Branch Systolic blood 2022-03-12 15:50:00 151 mm[Hg] Univer sity of pressure [place] [facility] Diastolic blood 2022-03-12 15:50:00 85 mm[Hg] Unive rsity of pressure [place] [facility] Heart rate 2022-03-12 14:42:00 79 /min Universi ty of [place] [facility] Body height 2022-03-12 14:42:00 162.6 cm Universi ty of [place] [facility] Body weight 2022-03-12 14:42:00 167.831 kg Universi ty of [place] [facility] BMI 2022-03-12 14:42:00 63.51 kg/m2 Universi ty of [place] [facility] Oxygen saturation in 2022-03-12 14:42:00 99 /min University of Arterial blood by [facility] Pulse oximetry Branch Systolic blood 2022-02-25 18:10:00 138 mm[Hg] Univer sity of pressure [place] [facility] Diastolic blood 2022-02-25 18:10:00 82 mm[Hg] Unive rsity of pressure [place] [facility] Heart rate 2022-02-25 18:10:00 96 /min Universi ty of [place] [facility] Respiratory rate 2022-02-25 18:10:00 16 /min Univ ersity of [place] [facility] Body height 2022-02-25 18:10:00 162.6 cm Universi ty of [place] [facility] Body weight 2022-02-25 18:10:00 167.831 kg Universi ty of [place] [facility] BMI 2022-02-25 18:10:00 63.51 kg/m2 Universi ty of [place] [facility] Oxygen saturation in 2022-02-25 18:10:00 90 /min University of Arterial blood by [facility] Pulse oximetry Branch Body height 2022-02-04 16:18:00 162.6 cm Universi ty of [place] [facility] Body weight 2022-02-04 16:18:00 167.786 kg Universi ty of [place] [facility] BMI 2022-02-04 16:18:00 63.49 kg/m2 Universi ty of [place] [facility] Systolic blood 2021-12-03 16:12:00 168 mm[Hg] Univer sity of pressure [place] [facility] Diastolic blood 2021-12-03 16:12:00 95 mm[Hg] Unive rsity of pressure [place] [facility] Heart rate 2021-12-03 16:11:00 80 /min Universi ty of [place] [facility] Respiratory rate 2021-12-03 16:11:00 16 /min Univ ersity of [place] [facility] Body height 2021-12-03 16:11:00 162.6 cm Universi ty of [place] [facility] Body weight 2021-12-03 16:11:00 165.109 kg [facility] BMI 2021-12-03 16:11:00 62.48 kg/m2 [facility] Oxygen saturation in 2021-12-03 16:11:00 99 /min [facility] Arterial blood by [facility] Pulse oximetry Branch Procedures Procedure Date / Time Performed Performing Clinician Esau e XR KNEE 3 VW RIGHT 2022-11-24 17:14:17 Jose Frances [facility] CONSENT/REFUSAL FOR 2022-11-24 15:39:23 Doctor Unassigned, No Un [facility] DIAGNOSIS AND Name Medical Branch TREATMENT FL TIME OR 2022-03-12 15:44:57 Uriah Calhoun [facility] (NON-REPORTABLE) [facility] MR LUMBAR SPINE WO 2021-12-20 18:50:28 Aminata Downey [facility] Encounters Start End Encounter Admission Attending Care Care Encounter Source Date/Time Date/Time Type Type Clinicians Facility Department ID 2021-03-18 Emergency [facility] [id number] Univers 11:19:41 [facility] 2021-03-15 Emergency [facility] [id number] Univers 05:30:29 [facility] 2023-07-06 2023-07-06 Outpatient MYRA ROMERO [facility] B [id number] Univers 10:00:00 10:00:00 MYRA PANDYA [facility] 2023-07-06 2023-07-06 Outpatient Wanda EASTMAN [facility] [id number] Univers 09:00:00 09:00:00 ARON reid [facility] 2023-02-27 2023-02-27 Outpatient Wanda GAMBOA [facility] [id number] Univers 00:00:00 00:00:00 AMINA loyd [facility] 2023-02-13 2023-02-13 Outpatient Wanda EASTMAN [facility] [id number] Univers 00:00:00 00:00:00 ARON reid [facility] 2023-01-08 2023-01-08 Outpatient Wanda EASTMAN [facility] [id number] Univers 00:00:00 00:00:00 ARON reid [facility] 2022-11-24 2022-11-24 Emergency X JUAN DANIEL, [facility] ERT [id number] Univers 10:47:00 12:54:00 JOSE reid [facility] 2022-11-24 2022-11-24 [facility] [id number] Univers 10:47:00 12:54:00 Jose LEILA [id number] i ty of [place] [id number] [place] [facility] [id number] [facility] [address] [place] 2022-09-05 2022-09-05 Outpatient R RAIZA [facility] [id number] Univers 00:00:00 00:00:00 ARON [facility] 2022-07-07 2022-07-07 Telephone [facility] [id number] Univers 00:00:00 00:00:00 Myra TRAN [id number] it y of WOMEN'S [id number] [facility] [id number] [facility] [address] [place] 2022-07-04 2022-07-04 Patient Raiza [facility] [id number] Univers 00:00:00 00:00:00 Secure Msg Aron DEE [id number] [id number] [id number] Al dical NAL 134 [facility] 2022-07-03 2022-07-03 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, 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 Lab [facility] [id number] Univers 10:15:00 10:30:00 Visit Aron Eastman [id number] [facility] [id number] [id number] Al dical NAL 353 [facility] 2022-07-03 2022-07-03 Outpatient R RAIZA [facility] [id number] Univers 09:00:00 10:01:35 ARON reid [facility] 2022-07-032022-07-03 [facility] [id number] Univers 09:00:00 10:01:35 Visit Aron LEILA [id number] i ty of [id number] [id number] Al dical [address] 2022-06-03 2022-06-03 Outpatient R XI [facility] [id number] Univers 12:30:00 12:30:00 [facility] 2022-03-12 [facility] [id number] Univers 09:52:26 23:59:00 URIAH [facility] 2022-03-12 2022-03-12 [facility] 1.2.840.114 [id number] Univers 09:52:26 23:59:00 Encounter Uriah ELAINEPEC 350.1.13.10 [place] [phone] [facility] AND ANGIE [address] [place] [facility] 2022-03-12 2022-03-12 [facility] 1.2.840.114 [id number] Univers 10:30:00 11:00:00 Visit Uriah ELAINEPEC 350.1.13.10 [place] [phone] [facility] AND [place] [address] [place] [facility] 2022-03-07 2022-03-07 Telephone [facility] 1.2.683.737 [id number] Univers 00:00:00 00:00:00 Uriah Hernandez MULTISPEC 350.1.13.10 [place] [id number] [facility] AND [place] [address] [place] [facility] 2022-02-25 2022-02-25 Outpatient R RUSTY [facility] [id number] Univers 12:30:00 13:52:54 ATTENDING itosei [facility] 2022-02-25 2022-02-25 Office Smita Gruber [facility] 1.2.840.114 [id number] Univers 12:30:00 13:52:54 Visit Unknown, Attending MULTISPEC 350.1.13. 10 [place] [phone] [address] [facility] 2022-02-04 2022-02-04 Outpatient Wanad DOWNEY [facility] [id number] Univers 11:00:00 11:25:35 AMINATA [facility] 2022-02-04 2022-02-04 Office [facility] 1.2.937.509 [id number] Univers 11:00:00 11:25:35 Visit Aminata Thompson HEALTH 350.1.13.10 i [place] [phone] [address] OFFICE BUILDING 2022-02-03 2022-02-03 [facility] 1.2.040.370 [id number] Univers 00:00:00 00:00:00 Aminata Thompson HEALTH 350.1.13.10 [place] [id number] [address] OFFICE BUILDING 2022-01-07 2022-01-07 Outpatient Wanda CALHOUN [facility] [id number] Univers 14:30:00 14:30:00 URIAH [facility] 2022-01-07 2022-01-07 [facility] 1.2.386.769 [id number] Univers 00:00:00 00:00:00 Aminata Thompson HEALTH 350.1.13.10 i [place] [phone] [address] OFFICE BUILDING 2021-12-20 2021-12-20 Outpatient Wanda DOWNEY [facility] [id number] Univers 13:13:25 23:59:00 AMINATA [facility] 2021-12-20 2021-12-20 [facility] 1.2.840.114 [id number] Univers 13:13:25 23:59:00 Encounter Aminata Thompson HEALTH 350.1.13.10 [place] [phone] [facility] [address] ([facility] 2021-12-03 2021-12-03 Outpatient R SHAYAN [facility] [id number] Univers 11:30:00 11:55:52 AMINATA ity [facility] 2021-12-03 2021-12-03 Office [facility] 1.2.346.968 [id number] Univers 11:30:00 11:55:52 Visit Aminata [facility] 350.1.13.10 i [place] [id number] [address] OFFICE BUILDING 2021-10-04 2021-10-04 Orders Doctor BRINDA 1.2.840.114 [id number] Univers 00:00:00 00:00:00 Only Unassigned, RENATE 350.1.13.10 ity of [place] [facility] 4.2.7.2.686 Alexy as [phone] [facility] [address] [place] 2021-09-04 2021-09-04 Outpatient R RAIZA [facility] [id number] Univers 08:03:23 23:59:00 ARON franklin [facility] 2021-09-04 2021-09-04 [facility] 1.2.840.114 [id number] Univers 08:03:23 23:59:00 Encounter Aron DEE 350.1.13.10 it[place] of [place] [phone] [facility] [address] 2021-09-04 2021-09-04 Orders Doctor BRINDA 1.2.840.114 [id number] Univers 00:00:00 00:00:00 Only Unassigned, RENATE 350.1.13.10 ity of [place] [facility] 4.2.7.2.686 Alexy as [phone] [address] 2021-07-27 2021-07-27 Emergency X DESTINY [facility] ERT [id number] Univers 11:59:00 14:01:00 LD [facility] 2021-07-27 2021-07-27 Emergency [facility] 1.2.791.317 [id number] Univers 11:59:00 14:01:00 Ld Gregorio LEILA 350.1.13.10 i [place] [phone] [facility] [address] [place] 2021-07-27 2021-07-27 Orders Doctor BRINDA 1.2.840.114 [id number] Univers 00:00:00 00:00:00 Only Unassigned, RENATE 350.1.13.10 ity of [facility] 4.2.7.2.686 Alexy as [phone] [facility] [address] 2021-07-05 2021-07-05 Case Gavi, [facility] 1.2.840.114 [id number] Univers 00:00:00 00:00:00 Management Meera DEE 350.1.13.10 [place] [phone] Al dical NAL 134 [facility] 2021-07-04 2021-07-04 Patient Raiza [facility] 1.2.242.027 [id number] Univers 00:00:00 00:00:00 Secure Msg Aron DEE 350.1.13.10 [place] [phone] Al dical NAL 134 [facility] 2021-07-03 2021-07-03 Outpatient R RAIZA [facility] [id number] Univers 15:00:00 15:00:00 ARON reid [facility] 2021-07-03 2021-07-03 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, Adc Lab [facility] 1.2.840.114 [id number] Univers 15:00:00 15:00:00 Visit Aron Eastman 350.1.13.10 [place] [phone] Al dical NAL 353 [facility] 2021-07-03 2021-07-03 Office Raiza [facility] 1.2.488.355 [id number] Univers 14:00:00 14:44:50 Visit Aron DEE 350.1.13.10 i ty of [place] 4.2.7.2.686 [facility] [phone] Al dical [address] 2021-07-03 2021-07-03 Outpatient Wanda EASTMAN [facility] [id number] Univers 14:00:00 14:44:50 ARON [facility] 2021-05-22 2021-05-22 Outpatient Wanda EASTMAN [facility] [id number] Univers 15:00:00 15:00:00 ARON [facility] 2021-04-04 2021-04-04 Outpatient Wanda EASTMAN [facility] [id number] Univers 08:00:00 08:00:00 [facility] 2020-12-12 2020-12-12 Emergency [facility] 1.2.840.114 [id number] 08:14:00 09:21:00 Seble Dee 350.1.13.10 [place] 4.2.7.2.686 [place] [phone] [facility] 2020-12-12 2020-12-12 Emergency [facility] 1.2.840.114 [id number] Univers 08:14:00 09:21:00 Seble Dee 350.1.13.10 ity [facility] 4.2.7.2.686 [facility] [place] [phone] [address] 2020-11-16 2020-11-16 Outpatient ISRRAEL CARRIZALES [facility] [id number] Univers 19:30:00 19:30:00 ISRRAEL RIOS [facility] 2020-11-16 2020-11-16 Wireless Engineer 1, [facility] 1.2.840.114 [id number] 14:47:18 17:17:18 Visit Sleep Lab Leila 350.1.13.10 Bed [place] 4.2.7.2.686 [place] [phone] [facility] 2020-11-16 2020-11-16 Wireless Engineer 1, [facility] Sleep Lab Bed [facility] 1. 2.840.114 [id number] Univers 14:47:18 17:17:18 Visit Isrrael Rios 350.1.13. 10 ity of [place] 4.2.7.2.686 [facility] [phone] [facility] [address] 2020-11-14 2020-11-14 Outpatient R [facility] [id number] Univers 10:00:00 10:00:00 ity of [facility] 2020-11-14 2020-11-14 Laboratory Only, [facility] 1.2.840.114 [id number] 09:38:29 09:53:29 Only Test [place] 350.1.13.10 [place] 4.2.7.2.686 [place] [id number] 353 2020-11-14 2020-11-14 Laboratory Only, [facility] Test [facility] 1.2.840. 114 [id number] [facility] 09:38:29 09:53:29 Only Neal Kaur 350.1.13.10 ity of [place] 4.2.7.2.686 [facility] [phone] [facility] [address] 2020-11-14 2020-11-14 Orders Doctor PARRY 1.2.840.114 [id number] 00:00:00 00:00:00 Only Unassigned, RENATE 350.1.13.10 [place] [facility] 4.2.7.2.686 [id number] 009 2020-11-14 2020-11-14 Orders Doctor PARYR 1.2.840.114 [id number] Univers 00:00:00 00:00:00 Only Unassigned, RENATE 350.1.13.10 ity of [place] [facility] 4.2.7.2.686 Alexy [phone] [facility] [address] 2020-08-02 2020-08-02 Patient KEN Quezada 1.2.840.114 [id number] 00:00:00 00:00:00 Outreach Cornelio BELLAMY 350.1.13.10 [facility] 4.2.7.2.686 PAVILLION [phone] 388 2020-08-02 2020-08-02 Patient Damien FLRUFINO 1.2.840.114 [id number] Univers 00:00:00 00:00:00 Outreach Cornelio PRIMARY 350.1.13.10 i ty of [facility] 4.2.7.2.[place] [phone] [facility] 2020-07-26 2020-07-26 Outside [facility] [id number] [facility] 00:00:00 00:00:[address] [facility] 2020-07-16 2020-07-16 Outpatient R [facility] [id number] Univers 10:00:00 10:00:00 ity [facility] 2020-06-06 2020-06-06 [facility] 1.2.840.114 [id number] 09:59:36 23:59:00 Encounter Aron Dee 350.1.13.10 [place] 4.2.7.2.686 [place] [id number] 800 2020-06-06 2020-06-06 [facility] 1.2.840.114 [id number] [facility] 09:59:36 23:59:00 Encounter Aorn Dee 350.1.13.10 ity of [place].2.[place] [phone] [facility] [address] [place] 2020-06-06 2020-06-06 [facility] [id number] Univers 00:00:00 00:00:00 ARON itosei [facility] 2020-06-06 2020-06-06 Orders Doctor PARRY 1.2.840.114 [id number] 00:00:00 00:00:00 Only Unassigned, RENATE 350.1.13.10 [place] [facility] 4.2.7.2.686 [id number] 009 2020-06-06 2020-06-06 Orders Doctor PARRY 1.2.840.114 [id number] Univers 00:00:00 00:00:00 Only Unassigned, RENATE 350.1.13.10 ity of [place] [facility] 4.2.7.2.686 Alexy as [phone] [facility] [address] 2020-04-26 2020-04-26 [facility] [id number] Univers 00:00:00 00:00:00 ARON ity of [facility] 2020-04-17 2020-04-17 [facility] 1.2.554.190 [id number] Univers 00:00:00 00:00:00 Management Aron [place] 350.1.13.10 ity of [place] [phone] [address] 2020-04-17 2020-04-17 Telephone Jazmyn Stevens [facility] 1.2.840.114 [id number] Univers 00:00:00 00:00:00 Cam [place] 350.1.13.10 i ty of [place].7.2.[place] [phone] [address] 2020-04-17 2020-04-17 Telephone Jazmyn Stevens [facility] 1.2.840.114 [id number] [facility] 00:00:00 00:00:00 Cam [place] 350.1.13.10 i ty of [place].2.[place] [phone] [address] 2020-04-17 2020-04-17 [facility] 1.2.079.413 [id number] 00:00:00 00:00:00 Management Aron [place] 350.1.13.10 [place] 4.2.7.2.686 Professio [phone] [address] 2020-04-17 2020-04-17 Telephone Jazmyn Stevens [facility] 1.2.840.114 [id number] 00:00:00 00:00:00 Cam [place] 350.1.13.10 [place] 4.2.7.2.686 Professio [phone] [address] 2020-04-17 2020-04-17 [place] Jazmyn Stevens [facility] 1.2.840.114 [id number] 00:00:00 00:00:00 Cam [place] 350.1.13.10 [place] 4.2.7.2.686 Professio [phone] [address] 2020-04-04 2020-04-04 Office [facility] 1.2.485.018 [id number] Univers 07:56:51 08:40:50 Visit Aron Dee 350.1.13.10 i ty of [place] [phone] Al dical [address] 2020-04-04 2020-04-04 [facility] [id number] Univers 08:00:00 08:00:00 ARON ity of [facility] 2020-04-04 2020-04-04 Orders Doctor BRINDA 1.2.840.114 [id number] Univers 00:00:00 00:00:00 Only Unassigned, RENATE 350.1.13.10 ity of [place] [facility] 4.2.7.2.686 Alexy as [phone] [address] 2020-04-04 2020-04-04 Orders Doctor BRINDA 1.2.840.114 [id number] 00:00:00 00:00:00 Only Unassigned, RENATE 350.1.13.10 [place] [facility] [id number] [facility] 2020-01-01 2020-01-01 Telephone BRINDA Walsh 1.2.840.114 [id number] Univers 00:00:00 00:00:00 Ana Maria DEWITT 350.1.13.10 ity of HOSPITAL 4.2.7.2.686 Alexy as [phone] [address] 2020-01-01 2020-01-01 Letter BRINDA Guillen 1.2.840.114 [id number] [facility] Univers 00:00:00 00:00:00 (Out) Marisol DEWITT 350.1.13.10 it y of HOSPITAL 4.2.7.2.686 Alexy as [phone] [address] 2019-12-31 2019-12-31 Laboratory Lab, Adc Fam Pob I [facility] 1.2. 840.114 [id number] Univers 13:33:57 13:53:57 Only Anechau, [facility] 350.1.13.10 ity of [place] 4.2.7.2.686 Alexy as Professio [phone] Al dical [facility] [address] [place] [address] 2019-12-31 2019-12-31 Outpatient R [facility] [id number] Univers 13:40:00 13:40:00 ity of [facility] 2019-11-28 2019-11-28 Telephone Fidelia Driver 1.2.840.114 [id number] Univers 00:00:00 00:00:00 Trinity RENATE 350.1.13.10 it y of HOSPITAL 4.2.7.2.686 Alexy as [phone] [address] 2019-11-25 2019-11-25 Telephone Allyson Angelo BRINDA 1.2.840.114 [id number] Univers 00:00:00 00:00:00 RENATE 350.1.13.10 it y of [facility] 4.2.7.2.686 Alexy as [phone] [address] 2019-11-23 2019-11-23 Emergency Fidelia Driver [facility] 1.2.840.114 [id number] Univers 11:15:20 13:13:00 Trinity Dee 350.1.13.10 i ty of [place] 4.2.7.2.686 [facility] [phone] [address] 2019-11-23 2019-11-23 Orders Doctor PARRY 1.2.840.114 [id number] Univers 00:00:00 00:00:00 Only Unassigned, RENATE 350.1.13.10 ity of [place] [facility] 4.2.7.2.686 Alexy as [phone] [address] 2019-06-20 2019-06-21 Emergency [facility] 1.2.018.800 [id number] Univers 22:52:24 01:30:00 Stephane Dee 350.1.13.10 i ty of [place] 4.2.7.2.686 [facility] [phone] [address] 2019-06-20 2019-06-20 Orders Doctor PARRY 1.2.840.114 [id number] Univers 00:00:00 00:00:00 Only Unassigned, RENATE 350.1.13.10 ity of [place] [facility] 4.2.7.2.686 Alexy as [phone] [facility] [address] 2018-12-30 2018-12-30 Emergency Frances, [facility] 1.2.317.690 [id number] [facility] 09:27:58 10:19:00 Jose Dee 350.1.13.10 i ty of [place] 4.2.7.2.[place] [phone] [facility] [address] 2018-12-30 2018-12-30 Orders Doctor BRINDA 1.2.840.[id number] [place] [address] 00:00:00 00:00:00 Only Unassigned, RENATE 350.1.13.10 ity of [place] [facility] 4.2.7.2.686 Alexy as [phone] [place] [address] [place] Results This patient has no known results.
[2023-04-11 11:48] LABS: SARS-CoV-2 Antigen Rapid Res Negative (Negative)
--- NOTE | 2023-04-11 12:11 | EDPHYS ---
Physician Documentation [facility] Name: Viola Spencer Age: 42 yrs Sex: Female : 1980 Arrival Date: 04/11/2023 Time: 10:29 Bed DIS6 Private MD: Fiordaliza Downey ED Physician Hood Castaneda HPI: 04/11 11:31 This 42 yrs old Female presents to ER via Ambulatory with complaints of Flu snw Symptoms. 11:31 This 42 yrs old Female presents to ER via Ambulatory with complaints of Flu snw Symptoms. 11:31 The patient or guardian reports cough, flu symptoms, low-grade fever, myalgias, no snw appetite. Onset: The symptoms/episode began/occurred acutely, 2 day(s) ago, and became persistent. Associated signs and symptoms: Pertinent positives: fever, rhinorrhea, sore throat. The patient has not experienced similar symptoms in the past, but family has similar symptoms, daughter. The patient has not recently seen a physician. 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 - Social history:: Smoking status: Reported history of juuling and/or vaping. Patient denies any tobacco usage or history of. ROS: 11:32 Eyes: Negative for injury, pain, redness, and discharge, snw 11:32 Neck: Negative for injury, pain, and swelling, Cardiovascular: Negative for chest pain, palpitations, and edema, 11:32 Abdomen/GI: Negative for abdominal pain, nausea, vomiting, diarrhea, and constipation, Back: Negative for injury and pain, : Negative for injury, bleeding, discharge, and swelling, MS/Extremity: Negative for injury and deformity, Skin: Negative for injury, rash, and discoloration, Neuro: Negative for headache, weakness, numbness, tingling, and seizure, 11:32 Constitutional: Positive for body aches, fatigue, fever, malaise, poor PO intake, 11:32 ENT: Positive for nasal discharge, sinus congestion, sinus pain, sore throat, 11:32 Respiratory: Positive for cough, shortness of breath, Exam: 11:33 Constitutional: This is a well developed, well nourished patient who is awake, alert, snw and in no acute distress. Head/Face: Normocephalic, atraumatic. Eyes: Pupils equal round and reactive to light, extra-ocular motions intact. Lids and lashes normal. Conjunctiva and sclera are non-icteric and not injected. Cornea within normal limits. Periorbital areas with no swelling, redness, or edema. 11:33 Neck: Trachea midline, no thyromegaly or masses palpated, and no cervical lymphadenopathy. Supple, full range of motion without nuchal rigidity, or vertebral point tenderness. No Meningismus. Chest/axilla: Normal chest wall appearance and motion. Nontender with no deformity. No lesions are appreciated. Cardiovascular: Regular rate and rhythm with a normal S1 and S2. No gallops, murmurs, or rubs. Normal PMI, no JVD. No pulse deficits. 11:33 Abdomen/GI: Soft, non-tender, with normal bowel sounds. No distension or tympany. No guarding or rebound. No evidence of tenderness throughout. Back: No spinal tenderness. No costovertebral tenderness. Full range of motion. Skin: Warm, dry with normal turgor. Normal color with no rashes, no lesions, and no evidence of cellulitis. MS/ Extremity: Pulses equal, no cyanosis. Neurovascular intact. Full, normal range of motion. Neuro: Awake and alert, GCS 15, oriented to person, place, time, and situation. Cranial nerves II-XII grossly intact. Motor strength 5/5 in all extremities. Sensory grossly intact. Cerebellar exam normal. Normal gait. Psych: Awake, alert, with orientation to person, place and time. Behavior, mood, and affect are within normal limits. 11:33 ENT: TM's: are normal, Nose: Nasal mucosa: erythematous, nasal drainage, that is moderate, Mouth: is normal, Posterior pharynx: is normal, Voice: is normal, 11:33 Respiratory: the patient does not display signs of respiratory distress, Respirations: accessory muscle usage, shallow respirations, Breath sounds: bronchial sounds, Vital Signs: 10:39 BP 160 / 72; Pulse 90; Resp 18; Temp 97.8; Pulse Ox 100% ; Weight 171.46 kg; Height 5 ll1 ft. 3 in. ; Pain 9/10; 10:39 Body Mass Index 66.96 (171.46 kg, 160.02 cm) ll1 10:39 Pain Scale: Adult ll1 MDM: 10:43 Patient medically screened. snw 11:34 Differential diagnosis: bronchitis, flu, URI. Data reviewed: vital signs, nurses notes. snw 04/11 10:56 Order name: Flu; Complete Time: 11:34 snw 04/11 10:56 Order name: SARS RAPID; Complete Time: 11:49 snw Administered Medications: No medications were administered Disposition Summary: 04/11/23 12:10 Discharge Ordered Notes: Location: Home snw Condition: Stable snw Diagnosis - Influenza due to other identified influenza virus with other respiratory snw manifestations - Flu B Followup: snw - With: Emergency Department - When: As needed - Reason: Worsening of condition Followup: snw - With: Private Physician - When: 2 - 3 days - Reason: Recheck today's complaints, Continuance of care, Re-evaluation by your physician Discharge Instructions: - Discharge Summary Sheet snw - Influenza, Adult snw - Rehydration, Adult snw Forms: - Work release form snw - Medication Reconciliation Form snw - Thank You Letter snw - Antibiotic Education snw - Prescription Opioid Use snw - Patient Portal Instructions snw - Leadership Thank You Letter snw Prescriptions: - promethazine 25 mg Oral Tablet - take 1 tablet ORAL route every 6 hours As needed; 20 tablet; Refills: 0, snw Product Selection Permitted Signatures: Dispatcher [employer] Caroline Little FNP-C MANAGER PROGRAM-Rodgerw Jarrod Cortes, RN RN ll1
--- NOTE | 2023-04-11 12:11 | ER ---
Nurse's Notes [facility] Name: Viola Spencer Age: 42 yrs Sex: Female : 1980 Arrival Date: 04/11/2023 Time: 10:29 Bed DIS6 Private MD: Fiordaliza Downey Diagnosis: Influenza due to other identified influenza virus with other respiratory manifestations-Flu B Presentation: 04/11 10:39 Chief complaint: Patient states: Cough, congestion, sore throat, B ear pain, fatigue, ll1 body aches since 04/09. Coronavirus screen: Vaccine status: Patient reports being unvaccinated. Client denies travel out of the [place] in the last 14 days. congestion, cough unrelated to allergies, fatigue, headache, muscle pain, Client presents with at least one sign or symptom that may indicate coronavirus-19. Standard/surgical mask placed on the client. Ebola Screen: Patient denies travel to an Ebola-affected area in the 21 days before illness onset. Initial Sepsis Screen: Does the patient meet any 2 criteria? No. Patient's initial sepsis screen is negative. Does the patient have a suspected source of infection? Yes: Productive cough/pneumonia. Risk Assessment: Do you want to hurt yourself or someone else? Patient reports no desire to harm self or others. Onset of symptoms was April 09, 2023. 10:39 Method Of Arrival: Ambulatory ll1 10:39 Acuity: KARRIE 4 ll1 Triage Assessment: 10:40 General: Appears in no apparent distress. Behavior is calm, cooperative, appropriate ll1 for age. Pain: Denies pain. EENT: Reports nasal congestion. Respiratory: Reports cough that is. 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 - Social history:: Smoking status: Reported history of juuling and/or vaping. Patient denies any tobacco usage or history of. Screenin:45 [facility] ED Fall Risk Assessment (Adult) Score/Fall Risk Level 0 - 2 = Low Risk ll1 Oriented to surroundings, Maintained a safe environment, Educated pt \T\ family on fall prevention, incl call for assistance when getting out of bed, Hourly rounding (assess needs \T\ fall precautionary measures) done. Abuse screen: Denies threats or abuse. Nutritional screening: No deficits noted. Tuberculosis screening: No symptoms or risk factors identified. Assessment: 11:15 Reassessment: No changes from previously documented assessment. Patient and/or family ll1 updated on plan of care and expected duration. Pain level reassessed. 12:28 Reassessment: No changes from previously documented assessment. Patient and/or family ll1 updated on plan of care and expected duration. Pain level reassessed. Patient is alert, oriented x 3, equal unlabored respirations, skin warm/dry/pink. Vital Signs: 10:39 BP 160 / 72; Pulse 90; Resp 18; Temp 97.8; Pulse Ox 100% ; Weight 171.46 kg; Height 5 ll1 ft. 3 in. ; Pain 9/10; 10:39 Body Mass Index 66.96 (171.46 kg, 160.02 cm) ll1 10:39 Pain Scale: Adult ll1 ED Course: 10:36 Patient arrived in ED. as 10:36 Fiordaliza Downey is Private Physician. as 10:36 Caroline Ga FNP-C is [facility]. snw 10:36 Hood Castaneda MD is Attending Physician. snw 10:41 Triage completed. ll1 10:41 Arm band placed on. ll1 10:50 Provided Education on: ER process and procedures. ll1 11:00 ER process and procedures. ll1 11:14 SARS RAPID Sent. bc6 11:14 Flu Sent. bc6 11:39 SARS RAPID Sent. ll1 11:45 Jarrod Cortes, ESTEE is Primary Nurse. ll1 11:46 Patient has correct armband on for positive identification. Bed in low position. Call ll1 light in reach. 12:29 No provider procedures requiring assistance completed. Patient did not have IV access ll1 during this emergency room visit. Administered Medications: No medications were administered Medication: 11:46 VIS not applicable for this client. ll1 Outcome: 12:10 Discharge ordered by . snw 12:29 Patient left the ED. ll1 12:29 Discharged to home ambulatory, ll1 12:29 Condition: stable 12:29 Discharge instructions given to patient, Instructed on discharge instructions, follow up and referral plans. medication usage, Demonstrated understanding of instructions, follow-up care, medications, Prescriptions given X 1, Signatures: Caroline Ga, MIRI-C ELECTRICAL AND INSTRUMENT ENGINEER-[employer] Demetria Palacio Lynsay RN RN ll1 Shawanda Jose bc6 Corrections: (The following items were deleted from the chart) 10:41 10:39 BP 160 / 72; Pulse 90bpm; Resp 18bpm; Pulse Ox 100%; 171.46 kg; Height 5 ft. 3 ll1 in.; BMI: 66.9; Pain 10, Adult; ll1
[2023-04-11 12:35] VITALS: BP 160/72; TEMP 97.8; O2SAT 100
== END 2023-04-11 12:29 | disposition home or self-care (01) ==
LOC: ER 10:29
DX: J10.1 Influenza due to other identified influenza virus with other respiratory manifestations (principal); Z11.52 Encounter for screening for COVID-19; Z88.8 Allergy status to other drugs, medicaments and biological substances
CPT/HCPCS: 36415; 87804; 87811; 99283

== ENCOUNTER 2023-10-20 16:07 | Emergency (ER) | payer SELFPAY ==
[2023-10-20] MEDS ORDERED: ACETAMINOPHEN 500 MG TAB ONE (16:52)
[2023-10-20 17:30] LABS: SARS-CoV-2 Antigen CONTROL BLUE LINE VIS/BG OK; SARS-CoV-2 Antigen Rapid Res Negative (Negative)
--- NOTE | 2023-10-20 18:25 | EDPHYS ---
Physician Documentation [facility] Name: Viola Spencer Age: 43 yrs Sex: Female : 1980 Arrival Date: 10/20/2023 Time: 16:07 Bed 10 Private MD: ED Physician Ignacio Pederson HPI: 10/19 18:35 This 43 yrs old Female presents to ER via Ambulatory with complaints of Flu kb Symptoms. 18:35 Pt is a 43 year old female who presents for chills, bodyaches and cough that started kb this morning. Denies congestion, sore throat, shortness of breath. . Historical: - Allergies: 16:16 Lisinopril; mb9 - Home Meds: 16:16 Seroquel 25 mg Oral tab 1 tab once daily [Active]; lamotrigine 25 mg Oral TbDi 1 tab mb9 once daily [Active]; Flexeril 10 mg Oral tab 1 tab once daily [Active]; cetirizine 1 mg/mL Oral soln 10 mL once daily [Active]; carvedilol 6.25 mg Oral tab 1 tab every 12 hours [Active]; - PMHx: 16:16 Anxiety; Bipolar disorder; Hypertension; mb9 - PSHx: 16:16 tubal ligation; mb9 - Immunization history:: Adult Immunizations up to date. - Infectious Disease History:: Denies. - Social history:: Smoking status: unknown. ROS: 18:32 Constitutional: As per HPI kb Exam: 18:32 Constitutional: This is a well developed, well nourished patient who is awake, alert, kb and in no acute distress. Head/Face: Normocephalic, atraumatic. ENT: Moist Mucous membranes Cardiovascular: Regular rate Respiratory: Respirations even and unlabored. No increased work of breathing. Talking in full sentences Abdomen/GI: Soft, non-tender. No distention Skin: Warm, dry with normal turgor. Normal color. MS/ Extremity: Pulses equal, no cyanosis. Neurovascular intact. Full, normal range of motion. Neuro: Awake and alert, GCS 15, oriented to person, place, time, and situation. Moves all extremities. Normal gait. Vital Signs: 16:22 BP 190 / 87; Pulse 127; Resp 18; Temp 100.9; Pulse Ox 97% on R/A; Weight 180.08 kg; mb9 Height 5 ft. 3 in. ; 17:23 BP 174 / 92; Pulse 119; Resp 20 S; Pulse Ox 100% on R/A; kc6 17:35 BP 172 / 85; Pulse 117; Resp 20 S; Temp 99.5(O); Pulse Ox 99% on R/A; kc6 16:22 Body Mass Index 70.32 (180.08 kg, 160.02 cm) 9 MDM: 16:10 Patient medically screened. kb 18:34 Differential diagnosis: flu, covid, uri. Data reviewed: vital signs, nurses notes. I kb considered the following discharge prescriptions or medication management in the emergency department I discussed and recommended Over The Counter medications, Antibiotics: At this time antibiotics are not recommended, Antivirals: At this time, antivirals are not recommended. Test considered but Not performed: X-ray: chest x-ray considered but lungs clear bilaterally, resp even and unlabored, oxygen saturation 99% on room air. Counseling: I had a detailed discussion with the patient and/or guardian regarding the historical points, exam findings, and any diagnostic results supporting the discharge/admit diagnosis, lab results, the need for outpatient follow up, a family practitioner, to return to the emergency department if symptoms worsen or persist or if there are any questions or concerns that arise at home. 10/19 16:24 Order name: Flu; Complete Time: 17:29 kb 10/19 16:24 Order name: SARS-COV-2 Antigen Rapid; Complete Time: 17:30 kb 10/19 17:32 Order name: Vital Signs; Complete Time: 17:36 kb Administered Medications: 16:59 Drug: Acetaminophen PO 1000 mg PO once Route: PO; 6 17:36 Follow up: Response: No adverse reaction; Temperature is decreased; Pain is unchanged, kc6 physician notified Disposition Summary: 10/20/23 18:25 Discharge Ordered Notes: Location: Home kb Condition: Stable kb Diagnosis - Viral infection, unspecified kb Followup: kb - With: Emergency Department - When: As needed - Reason: Worsening of condition Followup: kb - With: Private Physician - When: 2 - 3 days - Reason: Recheck today's complaints, Continuance of care, Re-evaluation by your physician Discharge Instructions: - Discharge Summary Sheet kb - Viral Respiratory Infection, Endq-Ln-Yuks kb - Viral Illness, Adult kb Forms: - Medication Reconciliation Form kb - Antibiotic Education kb - Prescription Opioid Use kb - Patient Portal Instructions kb - Leadership Thank You Letter kb Signatures: Dispatcher [employer] Viviane Nelson FNP-C FNP-Janneth Benitez, RN RN kc6 Mattie Moffett RN RN mb9
--- NOTE | 2023-10-20 18:25 | ER ---
Nurse's Notes [facility] Name: Viola Spencer Age: 43 yrs Sex: Female : 1980 Arrival Date: 10/20/2023 Time: 16:07 Bed 10 Private MD: Diagnosis: Viral infection, unspecified Presentation: 10/19 16:22 Chief complaint: Patient states: "This morning, I started having headache, body aches, mb9 a little bit of a cough.". Coronavirus screen: Vaccine status: Patient reports receiving the 2nd dose of the covid vaccine. Ebola Screen: No symptoms or risks identified at this time. Initial Sepsis Screen: Does the patient meet any 2 criteria? HR > 90 bpm. Does the patient have a suspected source of infection? No. Patient's initial sepsis screen is negative. Risk Assessment: Do you want to hurt yourself or someone else? Patient reports no desire to harm self or others. Onset of symptoms was October 20, 2023. 16:22 Acuity: KARRIE 3 mb9 16:22 Method Of Arrival: Ambulatory mb9 Triage Assessment: 16:24 General: Appears ill, Behavior is cooperative. Pain: Complains of pain in entire body. mb9 EENT: Throat is pink. Neuro: Level of Consciousness is awake, alert, obeys commands, Oriented to person, place, time, situation, Appropriate for age. Cardiovascular: Patient's skin is warm and dry. Respiratory: Reports cough that is Airway is patent Respiratory effort is even, unlabored, Respiratory pattern is regular, symmetrical. GI: No signs and/or symptoms were reported involving the gastrointestinal system. : No signs and/or symptoms were reported regarding the genitourinary system. Derm: Skin is pink, warm \\T\\ dry. Musculoskeletal: Range of motion: intact in all extremities. Historical: - Allergies: 16:16 Lisinopril; mb9 - Home Meds: 16:16 Seroquel 25 mg Oral tab 1 tab once daily [Active]; lamotrigine 25 mg Oral TbDi 1 tab mb9 once daily [Active]; Flexeril 10 mg Oral tab 1 tab once daily [Active]; cetirizine 1 mg/mL Oral soln 10 mL once daily [Active]; carvedilol 6.25 mg Oral tab 1 tab every 12 hours [Active]; - PMHx: 16:16 Anxiety; Bipolar disorder; Hypertension; mb9 - PSHx: 16:16 tubal ligation; mb9 - Immunization history:: Adult Immunizations up to date. - Infectious Disease History:: Denies. - Social history:: Smoking status: unknown. Screenin:09 [facility] ED Fall Risk Assessment (Adult) History of falling in the last 3 months, kc6 including since admission No falls in past 3 months (0 pts) Confusion or Disorientation No (0 pts) Intoxicated or Sedated No (0 pts) Impaired Gait No (0 pts) Mobility Assist Device Used No (0 pt) Altered Elimination No (0 pt) Score/Fall Risk Level 0 - 2 = Low Risk. Abuse screen: Denies threats or abuse. Denies injuries from another. Nutritional screening: No deficits noted. Tuberculosis screening: No symptoms or risk factors identified. Assessment: 17:09 General: Appears in no apparent distress. uncomfortable, obese, well groomed, well kc6 developed, Behavior is calm, cooperative, appropriate for age, Reports chills for 0-12 hours, fever for 0-12 hours, feeling ill for 0-12 hours, fatigue for 0-12 hours. Neuro: Level of Consciousness is awake, alert, obeys commands, Oriented to person, place, time, situation, Appropriate for age. Cardiovascular: Denies chest pain, Heart tones S1 S2 present Capillary refill < 3 seconds Rhythm is sinus tachycardia. Respiratory: Reports cough that is Airway is patent Trachea midline Respiratory effort is even, unlabored, Respiratory pattern is regular, symmetrical. GI: No signs and/or symptoms were reported involving the gastrointestinal system. : No signs and/or symptoms were reported regarding the genitourinary system. EENT: No signs and/or symptoms were reported regarding the EENT system. Derm: No signs and/or symptoms reported regarding the dermatologic system. Skin is intact, Skin is dry, Skin is pale, Skin temperature is warm. Musculoskeletal: No signs and/or symptoms reported regarding the musculoskeletal system. Circulation, motion, and sensation intact. Capillary refill < 3 seconds, Range of motion: intact in all extremities. 18:09 Reassessment: Patient appears in no apparent distress at this time. No changes from kc6 previously documented assessment. Patient and/or family updated on plan of care and expected duration. Pain level reassessed. Patient is alert, oriented x 3, equal unlabored respirations, skin warm/dry/pink. 18:33 Reassessment: Patient states symptoms have improved. kc6 Vital Signs: 16:22 BP 190 / 87; Pulse 127; Resp 18; Temp 100.9; Pulse Ox 97% on R/A; Weight 180.08 kg; mb9 Height 5 ft. 3 in. ; 17:23 BP 174 / 92; Pulse 119; Resp 20 S; Pulse Ox 100% on R/A; kc6 17:35 BP 172 / 85; Pulse 117; Resp 20 S; Temp 99.5(O); Pulse Ox 99% on R/A; kc6 16:22 Body Mass Index 70.32 (180.08 kg, 160.02 cm) 9 ED Course: 16:08 Patient arrived in ED. rg4 16:10 [facility] kb 16:10 Ignacio Pederson MD is Attending Physician. kb 16:24 Triage completed. 9 16:24 Arm band placed on. [facility] 16:51 Janneth Winston, ESTEE is Primary Nurse. kc6 16:59 SARS-COV-2 Antigen Rapid Sent. kc6 16:59 Flu Sent. kc6 17:09 Patient has correct armband on for positive identification. Bed in low position. Call kc6 light in reach. Side rails up X2. Pulse ox on. NIBP on. Door closed. Noise minimized. Lights dimmed. Pillow given. 18:33 No provider procedures requiring assistance completed. Patient did not have IV access [facility] during this emergency room visit. Administered Medications: 16:59 Drug: Acetaminophen PO 1000 mg PO once Route: PO; kc6 17:36 Follow up: Response: No adverse reaction; Temperature is decreased; Pain is unchanged, [facility] physician notified Medication: 18:34 VIS not applicable for this client. [facility] Outcome: 18:25 Discharge ordered by . kb 18:33 Discharged to home ambulatory, 6 18:33 Condition: good 18:33 Discharge instructions given to patient, Instructed on discharge instructions, follow up and referral plans. Demonstrated understanding of instructions, follow-up care, 18:34 Patient left the ED. [facility] Signatures: Viviane Ceja FNP-C FNP-Stacey Caputo rg4 Janneth Winston RN RN radha DatMattie coatesh, RN RN mb9
[2023-10-20 20:03] VITALS: BP 172/85; TEMP 99.5; O2SAT 99
== END 2023-10-20 18:34 | disposition home or self-care (01) ==
LOC: ER 16:07
DX: B34.9 Viral infection, unspecified (principal); Z11.52 Encounter for screening for COVID-19
CPT/HCPCS: 36415; 87804; 87811; 99284